=== PATIENT | female | born 1955 | race Caucasian/White ===

== ENCOUNTER 2016-07-14 10:11 | Emergency (ER) | payer BC ==
--- NOTE | 2016-07-14 11:08 | ED ---
General Adult HPI - General Chief complaint: Extremity Problem,Nontraumatic Stated complaint: hand knee pain Time Seen by Provider: 07/14/16 10:37 Source: patient, RN notes reviewed Mode of arrival: ambulatory Limitations: no limitations - History of Present Illness Initial comments: Patient is 60-year-old female who presents emergency room today with multiple complaints. She does admit that over the last several months she's been noticing that she's been having some pain to her hands bilaterally and her shoulders. She admits that she has some numbness tingling to the left fingertips. She admits to some neck pain. She states only symptoms off and on over the last several months. She does admit the pains are worse with movements. She uses related to arthritis. She states that she came here to emergency room if she had some increased pain to the left knee area. States she was worried about a blood clot. Patient also admits to a fungus to his left great toe. She states been using [id number] medications with no relief the symptoms. Patient denies any injury to the left knee. Denies any other complaints or associated symptoms. Patient denies any recent fever, chills , shortness of breath, chest pain, back pain, abdominal pain, nausea or vomiting , dysuria or hematuria, constipation or diarrhea, headaches or visual changes, or any other complaints. - Related Data Home Medications Medication Instructions Recorded Confirmed Albuterol Sulfate [Proair Hfa] 2 puff INHALATION RT-Q6H PRN 07/14/16 07/14/16 Beclomethasone Dipropionate [Qvar 1 puff INHALATION RT-BID PRN 07/14/16 07/14/16 80 mcg] Ibuprofen [Motrin] 400 mg PO Q6HR PRN 07/14/16 07/14/16 Lisinopril [Zestril] 10 mg PO DAILY 07/14/16 07/14/16 metFORMIN HCL [Glucophage] 500 mg PO BID 07/14/16 07/14/16 Previous Rx's Medication Instructions Recorded Insulin Glargine [Lantus] 10 unit SQ HS #2 vial 08/12/15 Ibuprofen [Motrin] 600 mg PO Q6HR PRN #40 day 07/14/16 Allergies Allergy/AdvReac Type Severity Reaction Status Date / Time No Known Allergies Allergy Verified 07/14/16 10:56 Review of Systems ROS Statement: Those systems with pertinent positive or pertinent negative responses have been documented in the HPI. ROS Other: All systems not noted in ROS Statement are negative. Past Medical History Past Medical History: Asthma, Diabetes Mellitus History of Any Multi-Drug Resistant Organisms: None Reported Past Surgical History: Tubal Ligation Additional Past Surgical History / Comment(s): wrist surgery Past Anesthesia/Blood Transfusion Reactions: No Reported Reaction Past Psychological History: No Psychological Hx Reported Smoking Status: Never smoker Past Alcohol Use History: None Reported Past Drug Use History: None Reported - Past Family History Father Family Medical History: Cancer Mother Family Medical History: Congestive Heart Failure (CHF), Hypertension General Exam - General Exam Comments Initial Comments: General: The patient is awake and alert, in no distress, and does not appear acutely ill. Neck: The neck is supple, there is no tenderness or JVD. Cardiovascular: There is a regular rate and rhythm. No murmur, rub or gallop is appreciated. Respiratory: Lungs are clear to auscultation, respirations are non-labored, breath sounds are equal. No wheezes, stridor, rales, or rhonchi. Musculoskeletal: Normal appearance of the upper extremities bilaterally. Shows full range of motion. Sensations intact with pulses bilaterally 2+. Pain reproduced with certain movements of the right wrist and with flexion and extension of the right hand. No specific bony tenderness. No tenderness to the shoulders bilaterally. Pulses equal bilaterally in both upper and lower extremities. Sensations are intact in both upper and lower extremities. Patient has normal appearance of left knee no obvious swelling or bruising. Shows good range of motion. Does have tenderness in the popliteal area. Neurological: A&O x 3. CN II-XII intact, There are no obvious motor or sensory deficits. Coordination appears grossly intact. Speech is normal. Skin: Skin is warm and dry and no rashes or lesions are noted. Psychiatric: Normal mood and affect. Limitations: no limitations Course Vital Signs 07/14/16 10:33 Temperature 97.8 F Pulse Rate 107 H Respiratory 16 Rate Blood Pressure 130/69 O2 Sat by Pulse 98 Oximetry Medical Decision Making - Medical Decision Making Patient reexamined at this time shows no signs of distress. Patient's ultrasound reviewed and shows evidence for a popliteal fossa cyst. No evidence for DVT. Patient advised follow-up with the orthopedics. Patient is advised follow-up the family doctor for further evaluation of her joint pain and fungal infection of the left toe. Advised that she'll need labs obtained before starting any medications for her fungal infection. Patient will be given a prescription for ibuprofen for her joint pain and pain in the left knee. Advised return for any other concerns. Disposition Clinical Impression: Bakers cyst, Fungal toenail infection, Arthralgia Disposition: HOME SELF-CARE Condition: Good Instructions: Bakers Cyst (ED) Additional Instructions: Please follow up with the family doctor for further evaluation and also orthopedics as discussed. Please use ibuprofen as prescribed and return to emergency room if any symptoms increase or worsen or for any other concerns. Prescriptions: Ibuprofen [Motrin] 600 mg PO Q6HR PRN #40 day PRN Reason: Pain Referrals: Lidia Felipe MD [Primary Care Provider] - 1-2 days Ashutosh Denton MD [STAFF PHYSICIAN] - 1-2 days Time of Disposition: 12:26
--- NOTE | 2016-07-14 12:19 | US ---
EXAMINATION TYPE: US venous doppler duplex LE LT DATE OF EXAM: 07/14/2016 12:04 PM COMPARISON: NONE CLINICAL HISTORY: Pain. Pain behind the left knee, no hx of blood clots, not on any blood thinners SIDE PERFORMED: left VESSELS IMAGED: External Iliac Vein (EIV) Common Femoral Vein Deep Femoral Vein Greater Saphenous Vein * Femoral Vein Popliteal Vein Small Saphenous Vein * Proximal Calf Veins (* superficial vessels) TECHNOLOGIST IMPRESSION: Left Leg: Appears negative for DVT Incidental finding- Septated fluid collection seen in posterior knee= 5.9 x 2.1 x 3.2 cm IMPRESSION: 1. This examination is negative for DVT within the left leg. 2. This examination is positive for a popliteal fossa cyst.
[2016-07-14 13:06] VITALS: BP 116/65; PULSE 95; RESP 18; TEMP 97.3
== END 2016-07-14 13:06 | disposition home or self-care (01) ==
LOC: EC 10:11
DX: M71.22 Synovial cyst of popliteal space [Baker], left knee (principal); B35.1 Tinea unguium; M25.50 Pain in unspecified joint; E11.9 Type 2 diabetes mellitus without complications; Z79.899 Other long term (current) drug therapy; Z79.4 Long term (current) use of insulin; Z79.84 Long term (current) use of oral hypoglycemic drugs
CPT/HCPCS: 99283

== ENCOUNTER 2016-08-06 16:06 | Emergency (ER) | payer BC ==
[2016-08-06 16:19] VITALS: BP 165/75; PULSE 105; RESP 18; TEMP 98.9
--- NOTE | 2016-08-06 16:50 | ED ---
General Adult HPI - General Chief complaint: Extremity Problem,Nontraumatic Stated complaint: Hands/Knees Swollen Time Seen by Provider: 08/06/16 16:25 Source: patient Mode of arrival: wheelchair Limitations: no limitations - History of Present Illness Initial comments: Patient is a 60-year-old female who presents to the ED with a chief complaint of joint pain and tingling on her bilateral fingers. Patient states that this has been present over the course of the past month. Patient states that she came to the emergency department initially for this complaint. She had a thorough evaluation that included Doppler of the bilateral lower extremities. This ruled out the presence of DVT and identified a left-sided Cross's cyst. The patient was diagnosed with polyarthralgia and went to her PCP's office for follow-up. Her PCP's office ordered an ESR, CRP, and GA. The patient was discharged home on a Medrol Dosepak as well as Naproxen twice a day when necessary. The patient states that she had a slight improvement of her symptoms while taking these medications. However, after these medications were exhausted, the patient's pain and symptoms return. The patient came to the ED today because she felt like her symptoms were worsening again. The patient describes the pain is achy in nature. The pain was located in the bilateral shoulders, bilateral hands, bilateral knees. Patient has numbness and tingling in digits 3 and 4 of bilateral hands. Patient suffers from diabetes that is insulin controlled. She denies any fevers or chills. She denies any chest pain or shortness of breath. - Related Data Home Medications Medication Instructions Recorded Confirmed Albuterol Sulfate [Proair Hfa] 2 puff INHALATION RT-Q6H PRN 07/14/16 08/06/16 Beclomethasone Dipropionate [Qvar 1 puff INHALATION RT-BID PRN 07/14/16 08/06/16 80 mcg] Lisinopril [Zestril] 10 mg PO DAILY 07/14/16 08/06/16 metFORMIN HCL [Glucophage] 500 mg PO BID 07/14/16 08/06/16 Acetaminophen Tab [Tylenol Tab] 650 mg PO Q6H PRN 08/06/16 08/06/16 Insulin Glargine [Lantus] 100 unit SQ HS 08/06/16 08/06/16 Naproxen 500 mg PO Q12HR PRN 08/06/16 08/06/16 Previous Rx's Medication Instructions Recorded Gabapentin [Neurontin] 100 mg PO TID 7 Days 08/06/16 predniSONE 20 mg PO DAILY 5 Days 08/06/16 Allergies Allergy/AdvReac Type Severity Reaction Status Date / Time No Known Allergies Allergy Verified 08/06/16 16:43 Review of Systems ROS Statement: Those systems with pertinent positive or pertinent negative responses have been documented in the HPI. ROS Other: All systems not noted in ROS Statement are negative. Constitutional: Denies: fever, chills, weakness, weight change, night sweats Eyes: Denies: eye pain, eye discharge, vision change ENT: Denies: ear pain, throat pain, dental pain Respiratory: Denies: cough, dyspnea, wheezes Cardiovascular: Denies: chest pain, palpitations, dyspnea on exertion Endocrine: Denies: fatigue, polyuria Gastrointestinal: Denies: abdominal pain, nausea, vomiting, diarrhea, constipation Genitourinary: Denies: urgency, dysuria, frequency, hematuria Musculoskeletal: Reports: arthralgia. Denies: back pain, joint swelling Skin: Denies: rash, lesions, change in color, change in hair/nails Neurological: Reports: numbness, paresthesias, other (numbness and paresthesias in digits 3 and 4 of the bilateral hands). Denies: headache, weakness, confusion Psychiatric: Reports: depression. Denies: anxiety, homicidal thoughts, suicidal thoughts Past Medical History Past Medical History: Asthma, Diabetes Mellitus History of Any Multi-Drug Resistant Organisms: None Reported Past Surgical History: Tubal Ligation Additional Past Surgical History / Comment(s): wrist surgery Past Anesthesia/Blood Transfusion Reactions: No Reported Reaction Past Psychological History: No Psychological Hx Reported Smoking Status: Never smoker Past Alcohol Use History: None Reported Past Drug Use History: None Reported - Past Family History Father Family Medical History: Cancer Mother Family Medical History: Congestive Heart Failure (CHF), Hypertension General Exam Limitations: no limitations General appearance: alert, in no apparent distress Head exam: Present: atraumatic, normocephalic Eye exam: Present: normal appearance, PERRL. Absent: scleral icterus, conjunctival injection Pupils: Present: normal accommodation ENT exam: Present: normal exam, normal oropharynx, mucous membranes dry Neck exam: Present: normal inspection. Absent: tenderness, meningismus, full ROM, lymphadenopathy, thyromegaly Respiratory exam: Present: normal lung sounds bilaterally. Absent: respiratory distress, wheezes, rales, rhonchi, stridor, chest wall tenderness Cardiovascular Exam: Present: regular rate, normal rhythm. Absent: bradycardia , tachycardia GI/Abdominal exam: Present: soft. Absent: distended, tenderness, guarding, rebound, rigid Extremities exam: Present: full ROM, normal capillary refill, joint swelling ( swelling of the second MCP joint on the bilateral hands). Absent: tenderness Back exam: Present: normal inspection, full ROM Neurological exam: Present: alert, oriented X3 Psychiatric exam: Present: normal affect, normal mood Skin exam: Present: warm, dry, intact Course Vital Signs 08/06/16 16:16 Temperature 98.9 F Pulse Rate 105 H Respiratory 18 Rate Blood Pressure 165/75 O2 Sat by Pulse 98 Oximetry Medical Decision Making - Medical Decision Making Patient is a 60-year-old female who presents to the ED with a chief complaint of joint pain. Patient states that the pain is present in the bilateral shoulders, bilateral knees, bilateral hands. Patient also notes numbness and tingling in digits 3 and 4 of the bilateral hands. Patient has followed up with her PCP, who ordered tests to investigate possible rheumatologic origin of her pain. Patient was treated with a Medrol Dosepak and Naproxen with relief of her pain. Unfortunately, the patient's pain returned. Spoke with physician from PCPs office and discussed patient's complaint today. Suspect the patient' s symptoms are secondary to arthritis. Neuropathy may be secondary to diabetes. Will discharge patient home on Prednisone 20 mg by mouth daily. Will also start patient on Neurontin 100 mg 3 times a day. Patient will make an appointment with her PCP's office on Tuesday for further evaluation and checkup. They will provide patient with a referral to Physical Medicine and Rehabilitation, if necessary. Have answered all the patient's questions to her satisfaction. We'll give her a dose of Toradol 30 mg IM while here in the ED. I have answered all of the questions posed by the patient's brother as well. The patient did state that she wasn't eating any food today. Encourage patient that she needed to eat. Counseled her that she appeared to be a little dehydrated. Counseled her to drink lots of fluids while at home. Counseled patient that she will need to adjust her insulin due to steroids. She states understanding and agrees to overall plan. Disposition Clinical Impression: Polyarthritis, Peripheral neuropathy Disposition: HOME SELF-CARE Condition: Good Instructions: Arthritis (ED), Diabetic Peripheral Neuropathy (ED) Additional Instructions: Please return to the ED should you have worsening symptoms or should you develop a fever or chills Prescriptions: Gabapentin [Neurontin] 100 mg PO TID 7 Days predniSONE 20 mg PO DAILY 5 Days Referrals: Lidia Felipe MD [Primary Care Provider] - 08/09/16 (Please call Dr. Felipe's office on Tuesday to schedule a follow up appointment. She can help to connect you with a Physical Medicine and Rehabilitation Physician) Time of Disposition: 17:22
[2016-08-06] MEDS ORDERED: KETOROLAC 30 MG/ML 1 ML VIAL IM STA (16:53)
== END 2016-08-06 17:30 | disposition home or self-care (01) ==
LOC: EC 16:06
DX: M13.0 Polyarthritis, unspecified (principal); E11.42 Type 2 diabetes mellitus with diabetic polyneuropathy; J45.909 Unspecified asthma, uncomplicated; Z79.4 Long term (current) use of insulin; Z79.899 Other long term (current) drug therapy
CPT/HCPCS: 99283; 96372; J1885

== ENCOUNTER 2017-01-08 15:30 | Emergency (ER) | payer BC ==
[2017-01-08 15:36] VITALS: BP 131/71; PULSE 117; RESP 18; TEMP 96.9
--- NOTE | 2017-01-08 15:41 | ED ---
Extremity Problem HPI - General Chief complaint: Extremity Problem,Nontraumatic Stated complaint: Bilateral shoulder pain Time Seen by Provider: 01/08/17 15:39 Source: patient, RN notes reviewed Mode of arrival: ambulatory Limitations: no limitations - History of Present Illness Initial comments: Patient is a pleasant 61-year-old female presenting to the emergency department with chief complaint of an increase in her chronic pain. Patient reports over the past 5-6 months she's had increasing discomfort in her bilateral shoulders bilateral hands, bilateral knees and left worse than right. Patient reports that she has been seen a couple of times in the emergency department for similar complaints. She has had a previous evaluation with ultrasound to rule out DVT of the legs. There was a Cross cyst posterior to the left knee. Patient reports that she also has undergone blood work through her primary care physician and has been evaluated by rheumatology. Diagnosis is thought to be degenerative joint disease, osteoarthritis, and diabetic neuropathy. Patient reports that she previously had been taking Naprosyn for discomfort but she has run out. Patient reports that her pain is normally "tolerable" but today complains of 10 out of 10 aching discomfort in the bilateral shoulders and left knee. Patient reports range of motion is reduced secondary to discomfort today. Patient denies any recent fall, trauma, or injury. She denies any increase in activity over the last few days that could explain for the exacerbation of her pain. Patient reports she has otherwise been well without fever, chills, cough, rhinorrhea, sore throat, chest pain, shortness of breath, abdominal pain, nausea, vomiting, diarrhea. Patient reports that in the past she has come to the emergency department and received an injection of the pain medication which is significantly reduced her discomfort and she is requesting a similar dose of pain medication today. - Related Data Home Medications Medication Instructions Recorded Confirmed Albuterol Sulfate [Proair Hfa] 2 puff INHALATION RT-Q6H PRN 07/14/16 08/06/16 Beclomethasone Dipropionate [Qvar 1 puff INHALATION RT-BID PRN 07/14/16 08/06/16 80 mcg] Lisinopril [Zestril] 10 mg PO DAILY 07/14/16 08/06/16 metFORMIN HCL [Glucophage] 500 mg PO BID 07/14/16 08/06/16 Acetaminophen Tab [Tylenol Tab] 650 mg PO Q6H PRN 08/06/16 08/06/16 Insulin Glargine [Lantus] 100 unit SQ HS 08/06/16 08/06/16 Naproxen 500 mg PO Q12HR PRN 08/06/16 08/06/16 Previous Rx's Medication Instructions Recorded Gabapentin [Neurontin] 100 mg PO TID 7 Days 08/06/16 predniSONE 20 mg PO DAILY 5 Days 08/06/16 Naproxen [Naprosyn] 375 mg PO Q12HR #30 tablet 01/08/17 Allergies Allergy/AdvReac Type Severity Reaction Status Date / Time No Known Allergies Allergy Verified 01/08/17 15:36 Review of Systems ROS Statement: Those systems with pertinent positive or pertinent negative responses have been documented in the HPI. ROS Other: All systems not noted in ROS Statement are negative. Past Medical History Past Medical History: Asthma, Diabetes Mellitus Additional Past Medical History / Comment(s): arthritis. History of Any Multi-Drug Resistant Organisms: None Reported Past Surgical History: Tubal Ligation Additional Past Surgical History / Comment(s): wrist surgery Past Anesthesia/Blood Transfusion Reactions: No Reported Reaction Past Psychological History: No Psychological Hx Reported Smoking Status: Never smoker Past Alcohol Use History: None Reported Past Drug Use History: None Reported - Past Family History Father Family Medical History: Cancer Mother Family Medical History: Congestive Heart Failure (CHF), Hypertension General Exam Limitations: no limitations General appearance: alert, in distress (Patient appears in mild distress secondary to discomfort.) Head exam: Present: atraumatic, normocephalic Eye exam: Present: normal appearance ENT exam: Present: mucous membranes moist Neck exam: Present: normal inspection Respiratory exam: Present: normal lung sounds bilaterally. Absent: respiratory distress, wheezes, rales, rhonchi, stridor Cardiovascular Exam: Present: regular rate, normal rhythm, normal heart sounds. Absent: systolic murmur, diastolic murmur Left Shoulder Exam: Present: normal inspection. Absent: full ROM (Range of motion is reduced grossly due to discomfort.), tenderness, swelling Upper Arm exam: Present: normal inspection. Absent: tenderness Elbow exam: Present: normal inspection, full ROM Forearm Wrist exam: Present: normal inspection, full ROM Hand Wrist exam: Present: swelling (Bilateral swelling to the second through third metacarpophalangeal joints to the bilateral hands.) Vascular: Present: normal capillary refill, radial pulse (2+ and symmetric bilaterally.). Absent: vascular compromise, Pallo Right General: Present: normal inspection Shoulder Exam: Present: normal inspection. Absent: full ROM (Range of motion grossly reduced secondary to pain.), tenderness, swelling, abrasion Upper Arm exam: Present: normal inspection. Absent: tenderness Elbow exam: Present: normal inspection, full ROM. Absent: tenderness Forearm Wrist exam: Present: normal inspection Hand Wrist exam: Present: swelling (Swelling to the bilateral second through fourth metacarpophalangeal joints). Absent: full ROM (Range of motion redo second or 2 swelling and pain.) Vascular: Present: normal capillary refill, radial pulse (2+ and symmetric bilaterally). Absent: vascular compromise, Pallo Left Hip exam: Present: full ROM Upper Leg exam: Present: normal inspection Knee exam: Present: full ROM (Range of motion is full but does elicit discomfort ), tenderness (Mild tenderness to palpation to the medial aspect of the joint), swelling (Mild swelling over her left anterior knee). Absent: ecchymosis, deformity Lower Leg exam: Present: normal inspection Ankle exam: Present: normal inspection Foot/Toe exam: Present: normal inspection Neurovascular tendon exam: Present: no vascular compromise. Absent: pulse deficit, abnormal cap refill, motor deficit, sensory deficit Neurological exam: Present: alert Psychiatric exam: Present: normal affect, normal mood Skin exam: Present: warm, dry, intact, normal color. Absent: rash Course Vital Signs 01/08/17 15:32 Temperature 96.9 F L Pulse Rate 117 H Respiratory 18 Rate Blood Pressure 131/71 O2 Sat by Pulse 97 Oximetry Medical Decision Making - Medical Decision Making Patient is a pleasant 61-year-old female with known history of osteoarthritis and degenerative joint disease who has had evaluation by rheumatology as well as primary care. She presents today with an increase in her chronic pain. Patient reports she is out of the Naprosyn which she had previously been prescribed. This will be refilled today. Patient reports that she does not want evaluation for chronic pain as this is already been evaluated for, but instead would like to have management of her chronic pain today. Patient reports that in the past she has been seen in her doctor's office as well as in the ER and has been given an injection which had significantly reduced her discomfort. Patient is requesting this medication again. In reviewing patient' s previous visits, she had been given Toradol 30 mg IM. This will be repeated today and then patient requests discharge. Disposition Clinical Impression: Polyarthralgia, Chronic pain of both shoulders, Chronic pain of left knee Disposition: HOME SELF-CARE Condition: Stable Instructions: Arthritis (ED) Additional Instructions: Please follow up with rheumatology as scheduled to discuss pain management and management of chronic arthralgias. Naprosyn may be used as needed for pain. Rest and ice affected areas. Prescriptions: Naproxen [Naprosyn] 375 mg PO Q12HR #30 tablet Referrals: Lidia Felipe MD [Primary Care Provider] - 1-2 days Time of Disposition: 16:05
[2017-01-08] MEDS ORDERED: KETOROLAC 30 MG/ML 1 ML VIAL IM STA (15:55)
== END 2017-01-08 16:23 | disposition home or self-care (01) ==
LOC: EC 15:30
DX: G89.29 Other chronic pain (principal); M25.511 Pain in right shoulder; M25.512 Pain in left shoulder; M25.562 Pain in left knee
CPT/HCPCS: 99283; 96372; J1885

== ENCOUNTER → 2017-04-20 | Outpatient (CLI) | payer BC ==
--- NOTE | 2017-04-20 13:54 | BD ---
EXAMINATION TYPE: MG DEXA axial skeleton. DATE OF EXAM: 04/20/2017 COMPARISON: NONE CLINICAL HISTORY: post menopausal Height: 5'3 Weight: 194 FRAX RISK QUESTIONS: Alcohol (3 or more units per day): no Family History (Parent hip fracture): no Glucocorticoids (More than 3mos): yes (Ex: prednisone, prednisolone, methylprednisolone, dexamethasone, and hydrocortisone). History of Fracture in Adulthood: no Secondary Osteoporosis: 1. Type 1 Diabetes: no 2. Hyperthyroidism: no 3. Menopause before 45: no 4. Malnutrition: no 5. Chronic liver disease: no Rheumatoid Arthritis: yes Current Tobacco Use: no RISK FACTORS HISTORY OF: Active: Postmenopausal woman: MEDICATIONS: Additional Medications: type 2 diabetes,lisinopril,citalpram,methotrexate Additional History: EXAM MEASUREMENTS: Bone mineral densitometry was performed using the [employer] System. Bone mineral density as measured about the Lumbar spine is: ----- L1-L4(G/cm2): 1.635 T Score Values are as follows: ----- L2: 2.8 ----- L3: 4.3 ----- L4: 5.0 ----- L1-L4:3.8 Bone mineral density about the R hip (g/cm2): 0.840 Bone mineral density about the L hip (g/cm2): 0.979 T Score values are as follows: -----R Neck: -1.4 -----L Neck: -0.4 -----R Total: 0.2 -----L Total: 1.0 IMPRESSION: Osteopenia (T Score between -2.5 and -1) as noted by T score values: Rt hip. Normal values with regar ds to the left hip There is slightly increased risk of fracture and the patient may be considered for treatment. Re-Screen 2-5 years. NOTE: T-SCORE=SD OF THE YOUNG ADULT MEAN.
--- NOTE | 2017-04-21 10:46 | MM ---
Reason for exam: screening (asymptomatic). Last mammogram was performed 3 years and 10 months ago. History: Patient is postmenopausal. Physical Findings: A clinical breast exam by your physician is recommended on an annual basis and results should be correlated with mammographic findings. MG Screening Mammo w CAD Bilateral CC and MLO view(s) were taken. Prior study comparison: June 20, 2013, bilateral digital screening mammo w/CAD. November 18, 2009, bilateral digital screening mammogram. There are scattered fibroglandular densities. Finding: There are typically benign vascular, round, linear calcifications in both breasts. There is a chronic nodularity in the left breast. There is no discrete abnormality. ASSESSMENT: Benign, BI-RAD 2 RECOMMENDATION: Routine screening mammogram of both breasts in 1 year.
== END | disposition home or self-care (01) ==
LOC: RADMAMWWP 12:45
PROVIDERS: ATTEND Family Medicine
DX: Z12.31 Encounter for screening mammogram for malignant neoplasm of breast (principal); Z78.0 Asymptomatic menopausal state; M85.851 Other specified disorders of bone density and structure, right thigh
CPT/HCPCS: 77080; G0202

== ENCOUNTER → 2018-04-26 | Outpatient (CLI) | payer BC ==
--- NOTE | 2018-04-27 14:23 | MM ---
Reason for exam: screening (asymptomatic). Last mammogram was performed 1 year ago. History: Patient is postmenopausal. MG Screening Mammo w CAD Bilateral CC and MLO view(s) were taken. Prior study comparison: April 20, 2017, bilateral MG screening mammo w CAD. June 20, 2013, bilateral digital screening mammo w/CAD. There are scattered fibroglandular densities. There are benign appearing bilateral calcifications. No suspicious abnormality. No significant new finding since most recent study. ASSESSMENT: Benign, BI-RAD 2 RECOMMENDATION: Routine screening mammogram of both breasts in 1 year.
== END | disposition home or self-care (01) ==
LOC: RADMAMWWP 07:53
PROVIDERS: ATTEND Family Medicine
DX: Z12.31 Encounter for screening mammogram for malignant neoplasm of breast (principal)
CPT/HCPCS: 77067

== ENCOUNTER 2019-07-29 22:47 | Inpatient (IN) | payer BC, OTHER ==
[2019-07-29] MEDS ORDERED: SODIUM CHLORIDE 0.9% 1,000 ML IV STA (23:06)
--- NOTE | 2019-07-29 23:26 | ED ---
Neuro HPI - General Chief Complaint: Neuro Symptoms/Deficit Stated Complaint: confusion Time Seen by Provider: 07/29/19 23:04 Source: patient, family Mode of arrival: wheelchair Limitations: no limitations - History of Present Illness Is the patient presenting with stroke symptoms?: Yes Last Known Well Date: 07/27/19 -: days(s) Initial Comments: Ruthie is a 63-year-old female presents the emergency department today for evaluation of left-sided weakness. Patient reports that she noticed some weakness in her left arm beginning on July 27. Patient does have a history of bilateral rotator cuff injuries and pain in the bilateral shoulders however is not usually week. Patient reports that since her arms become more week she's noticed a tremor in the arm and throughout the day today has noticed progressively worsening weakness in the left leg as well. Patient reports she is able to stand but has to hold onto something for support. Patient denies any headache, vision changes, trouble speech or swelling or facial droop. - Related Data Home Medications: Home Medications Medication Instructions Recorded Confirmed Albuterol Sulfate [Proair Hfa] 2 puff INHALATION RT-Q6H PRN 07/14/16 06/30/17 Beclomethasone Dipropionate [Qvar 1 puff INHALATION RT-BID PRN 07/14/16 06/30/17 80 mcg] Lisinopril [Zestril] 10 mg PO QAM 07/14/16 06/30/17 metFORMIN HCL [Glucophage] 500 mg PO BID 07/14/16 06/30/17 Insulin Glargine [Lantus] 100 unit SQ HS 08/06/16 06/30/17 Citalopram Hydrobromide 20 mg PO QAM 06/30/17 [Citalopram HBr] Folic Acid (Unknown Dose) 1 tab PO DAILY 06/30/17 Methotrexate/Pf [Rasuvo 15 mg/0.3 15 mg SQ SA 06/30/17 ml Autoinj] Allergies/Adverse Reactions: Allergies Allergy/AdvReac Type Severity Reaction Status Date / Time No Known Allergies Allergy Verified 07/29/19 23:03 Review of Systems ROS Statement: Those systems with pertinent positive or pertinent negative responses have been documented in the HPI. ROS Other: All systems not noted in ROS Statement are negative. General Exam - General Exam Comments Initial Comments: Physical Exam GENERAL: Patient is well-developed and well-nourished. Appears dehydrated HENT: Normocephalic, Atraumatic. EYES: PERRL, EOMI PULMONARY: Unlabored respirations. No audible rales rhonchi or wheezing was noted. CARDIOVASCULAR: Tachycardia, regular ABDOMEN: Soft and nontender with normal bowel sounds. SKIN: Skin is clear with no lesions or rashes and otherwise unremarkable. : Deferred NEUROLOGIC: Patient is alert and oriented x3. Moving all extremities spontaneously drift in left arm and leg Generalized weakness MUSCULOSKELETAL: Normal extremities with adequate strength and full range of motion. No lower extremity swelling or edema. No calf tenderness. PSYCHIATRIC: Normal psychiatric evaluation. Limitations: no limitations Stroke MDM - Lab Data Result diagrams: 07/29/19 23:20 07/29/19 23:20 Lab Results 07/29/19 07/29/19 07/29/19 Range/Units 23:20 23:20 23:20 WBC 9.9 (3.8-10.6) k/uL RBC 4.74 (3.80-5.40) m/uL Hgb 14.5 (11.4-16.0) gm/dL Hct 45.4 (34.0-46.0) % MCV 95.8 (80.0-100.0) fL MCH 30.5 (25.0-35.0) pg MCHC 31.9 (31.0-37.0) g/dL RDW 12.9 (11.5-15.5) % Plt Count 342 (150-450) k/uL Neutrophils % 81 % Lymphocytes % 15 % Monocytes % 3 % Eosinophils % 0 % Basophils % 0 % Neutrophils # 8.1 H (1.3-7.7) k/uL Lymphocytes # 1.5 (1.0-4.8) k/uL Monocytes # 0.3 (0-1.0) k/uL Eosinophils # 0.0 (0-0.7) k/uL Basophils # 0.0 (0-0.2) k/uL PT 9.4 (9.0-12.0) sec INR 0.9 (<1.2) APTT 19.9 L (22.0-30.0) sec VBG pH (7.31-7.41) VBG pCO2 (37-51) mmHg VBG HCO3 (24-28) mmol/L Sodium 131 L (137-145) mmol/L Potassium 5.4 H (3.5-5.1) mmol/L Chloride 99 (98-107) mmol/L Carbon Dioxide 12 L (22-30) mmol/L Anion Gap 20 mmol/L BUN 40 H (7-17) mg/dL Creatinine 0.91 (0.52-1.04) mg/dL Est GFR (CKD-EPI)AfAm 77 (>60 ml/min/1.73 sqM) Est GFR (CKD-EPI)NonAf 67 (>60 ml/min/1.73 sqM) Glucose 992 H* (74-99) mg/dL POC Glucose (mg/dL) (75-99) mg/dL POC Glu Quality Review Trainer ID Osmolality (280-301) mosm/kg Calcium 9.4 (8.4-10.2) mg/dL Total Bilirubin 0.7 (0.2-1.3) mg/dL AST 18 (14-36) U/L ALT 17 (4-34) U/L Alkaline Phosphatase 164 H (38-126) U/L Total Protein 6.4 (6.3-8.2) g/dL Albumin 3.4 L (3.5-5.0) g/dL Urine Color Urine Appearance (Clear) Urine pH (5.0-8.0) Ur Specific [place] (1.001-1.035) Urine Protein (Negative) Urine Glucose (UA) (Negative) Urine Ketones (Negative) Urine Blood (Negative) Urine Nitrite (Negative) Urine Bilirubin (Negative) Urine Urobilinogen (<2.0) mg/dL Ur Leukocyte Esterase (Negative) Acetone, Qual (Negative) 07/29/19 07/30/19 07/30/19 Range/Units 23:20 00:16 00:22 WBC (3.8-10.6) k/uL RBC (3.80-5.40) m/uL Hgb (11.4-16.0) gm/dL Hct (34.0-46.0) % MCV (80.0-100.0) fL MCH (25.0-35.0) pg MCHC (31.0-37.0) g/dL RDW (11.5-15.5) % Plt Count (150-450) k/uL Neutrophils % % Lymphocytes % % Monocytes % % Eosinophils % % Basophils % % Neutrophils # (1.3-7.7) k/uL Lymphocytes # (1.0-4.8) k/uL Monocytes # (0-1.0) k/uL Eosinophils # (0-0.7) k/uL Basophils # (0-0.2) k/uL PT (9.0-12.0) sec INR (<1.2) APTT (22.0-30.0) sec VBG pH (7.31-7.41) VBG pCO2 (37-51) mmHg VBG HCO3 (24-28) mmol/L Sodium (137-145) mmol/L Potassium (3.5-5.1) mmol/L Chloride (98-107) mmol/L Carbon Dioxide (22-30) mmol/L Anion Gap mmol/L BUN (7-17) mg/dL Creatinine (0.52-1.04) mg/dL Est GFR (CKD-EPI)AfAm (>60 ml/min/1.73 sqM) Est GFR (CKD-EPI)NonAf (>60 ml/min/1.73 sqM) Glucose (74-99) mg/dL POC Glucose (mg/dL) >600 H (75-99) mg/dL POC Glu Quality Review Trainer ID Marcia Hays Osmolality 353 H* (280-301) mosm/kg Calcium (8.4-10.2) mg/dL Total Bilirubin (0.2-1.3) mg/dL AST (14-36) U/L ALT (4-34) U/L Alkaline Phosphatase (38-126) U/L Total Protein (6.3-8.2) g/dL Albumin (3.5-5.0) g/dL Urine Color Yellow Urine Appearance Clear (Clear) Urine pH 6.0 (5.0-8.0) Ur Specific [place] 1.005 (1.001-1.035) Urine Protein Negative (Negative) Urine Glucose (UA) 3+ (Negative) Urine Ketones 2+ (Negative) Urine Blood Negative (Negative) Urine Nitrite Negative (Negative) Urine Bilirubin Negative (Negative) Urine Urobilinogen <2.0 (<2.0) mg/dL Ur Leukocyte Esterase Negative (Negative) Acetone, Qual Positive (Negative) 02/07/30/19 07/30/19 Range/Units 01:35 01:49 02:47 WBC (3.8-10.6) k/uL RBC (3.80-5.40) m/uL Hgb (11.4-16.0) gm/dL Hct (34.0-46.0) % MCV (80.0-100.0) fL MCH (25.0-35.0) pg MCHC (31.0-37.0) g/dL RDW (11.5-15.5) % Plt Count (150-450) k/uL Neutrophils % % Lymphocytes % % Monocytes % % Eosinophils % % Basophils % % Neutrophils # (1.3-7.7) k/uL Lymphocytes # (1.0-4.8) k/uL Monocytes # (0-1.0) k/uL Eosinophils # (0-0.7) k/uL Basophils # (0-0.2) k/uL PT (9.0-12.0) sec INR (<1.2) APTT (22.0-30.0) sec VBG pH 7.30 L (7.31-7.41) VBG pCO2 29 L (37-51) mmHg VBG HCO3 14 L (24-28) mmol/L Sodium (137-145) mmol/L Potassium (3.5-5.1) mmol/L Chloride (98-107) mmol/L Carbon Dioxide (22-30) mmol/L Anion Gap mmol/L BUN (7-17) mg/dL Creatinine (0.52-1.04) mg/dL Est GFR (CKD-EPI)AfAm (>60 ml/min/1.73 sqM) Est GFR (CKD-EPI)NonAf (>60 ml/min/1.73 sqM) Glucose (74-99) mg/dL POC Glucose (mg/dL) 581 H 435 H (75-99) mg/dL POC Glu Quality Review Trainer Marcia Be Emily Osmolality (280-301) mosm/kg Calcium (8.4-10.2) mg/dL Total Bilirubin (0.2-1.3) mg/dL AST (14-36) U/L ALT (4-34) U/L Alkaline Phosphatase (38-126) U/L Total Protein (6.3-8.2) g/dL Albumin (3.5-5.0) g/dL Urine Color Urine Appearance (Clear) Urine pH (5.0-8.0) Ur Specific [place] (1.001-1.035) Urine Protein (Negative) Urine Glucose (UA) (Negative) Urine Ketones (Negative) Urine Blood (Negative) Urine Nitrite (Negative) Urine Bilirubin (Negative) Urine Urobilinogen (<2.0) mg/dL Ur Leukocyte Esterase (Negative) Acetone, Qual (Negative) - NIH Stroke Scale 1a. Level of Consciousness: (0) alert 1b. LOC Questions: (0) answers correctly 1c. LOC Commands: (0) performs tasks correctly 2. Best Gaze: (0) normal 3. Visual: (0) no visual loss 4. Facial Palsy: (0) normal symmetrical movement 5a. Motor Arm Left: (1) drift 5b. Motor Arm Right: (0) no drift 6a. Motor Leg Left: (1) drift 6b. Motor Leg Right: (0) no drift 7. Limb Ataxia: (0) absent 8. Sensory: (0) normal 9. Best Language: (0) no aphasia 10. Dysarthria: (0) normal 11. Extinction/Inattention: (0) no abnormality - Thrombolytic Inclusion/Exclusion Thrombolytic Exclusion Criteria: Symptom Onset > 4.5 Hours Thrombolytic Contraindications: Glucose Above 400mg/dl - Medical Decision Making Patient was seen and evaluated, history is obtained from the patient and family at bedside 63-year-old female presenting with left-sided weakness, resident for greater than 48 hours no indication for code stroke is patient's on a candidate for TPA or intervention Labs and imaging were ordered EKG nonischemic Labs resulted with a glucose of greater than 900, bedside [id number] glucose confirms glucose greater than 600 Additional labs for DKA were ordered Patient confirmed that she had stopped taking her insulin about a week ago, she states she does have insulin at home she just does not want to take it Computed tomography scan of the head with no acute findings Results were discussed with patient, I suspect her generalized weakness and neurologic findings are secondary to hyperglycemia, will treat for likely DKA Patient's found to have elevated anion gap and low bicarb, venous blood gas was obtained confirmed the pH of 7.3, acetone is positive, patient is in DKA. Patient received DKA insulin. Insulin improving significantly after IV fluids and bolus. Patient will be admitted to the ICU for further management of DKA. Patient care was discussed with Dr. Dodd the crayon painter agrees with plan for admission to the ICU. - EKG Data -: EKG Interpreted by Me EKG shows normal: sinus rhythm Rate: normal EKG was obtained due to complaint of acute neuro deficits, EKG obtained at 2311, rate is 126 rhythm is sinus tachycardia with rightward axis, normal intervals, AK 146, QRS 76, QTC [address] elevations or depressions no evidence of acute ischemia or infarction 07/29/19 23:25 Past Medical History Past Medical History: Asthma, Diabetes Mellitus, Hypertension, Osteoarthritis (OA) Additional Past Medical History / Comment(s): arthritis. History of Any Multi-Drug Resistant Organisms: None Reported Past Surgical History: Tubal Ligation Additional Past Surgical History / Comment(s): wrist surgery Past Anesthesia/Blood Transfusion Reactions: No Reported Reaction Past Psychological History: No Psychological Hx Reported Smoking Status: Never smoker Past Alcohol Use History: None Reported Past Drug Use History: None Reported - Past Family History Father Family Medical History: Cancer Mother Family Medical History: Congestive Heart Failure (CHF), Hypertension Course Vital Signs 07/29/19 07/30/19 07/30/19 22:56 00:00 00:03 Temperature 97.9 F Pulse Rate 122 H 114 H 115 H Respiratory 22 22 20 Rate Blood Pressure 136/88 149/91 141/89 O2 Sat by Pulse 99 99 98 Oximetry 07/30/19 01:40 Temperature Pulse Rate 120 H Respiratory 20 Rate Blood Pressure 151/90 O2 Sat by Pulse 97 Oximetry Critical Care Time Critical Care Time: Yes Total Critical Care Time: 45 Critical Care Time: Critical care time was exclusive of separately billable procedures and treating other patients and teaching time. Critical care was necessary to treat or prevent imminent or life-threatening deterioration. Given the critical condition in which the patient arrived, the patient was immediately assessed by myself and the nurse, and cardiac monitoring initiated due to the potential for rapid decompensation of the patient's clinical condition. During the course of the patients stay, I spent a considerable amount of time at the bedside performing serial re-evaluations of the patient's hemodynamic and clinical status because of the recognized potential threat to life or limb in this condition. I then had a chance to review not only all of the available current laboratory and radiographic studies obtained today, but I also reviewed old records available to me at the time. Additionally, any ancillary information available including employment attorney records were reviewed. Sequential vital signs were obtained. Disposition Clinical Impression: DKA (diabetic ketoacidoses), Non compliance w medication regimen, Generalized weakness Disposition: ADMITTED IP TO THIS HOSP Condition: Serious Is patient prescribed a controlled substance at d/c from ED?: No
[2019-07-29 23:46] LABS: Basophils % (A) 0 %; Eosinophils % (A) 0 %; HCT 45.4 % (34.0-46.0); HGB 14.5 gm/dL (11.4-16.0); Lymphocytes # (A) 1.5 k/uL (1.0-4.8); Lymphocytes % (A) 15 %; MCH 30.5 pg (25.0-35.0); MCHC 31.9 g/dL (31.0-37.0); MCV 95.8 fL (80.0-100.0); Mean Platelet Volume 8.7; Monocytes # (A) 0.3 k/uL (0-1.0); Monocytes % (A) 3 %; Neutrophils # (A) 8.1 k/uL (1.3-7.7); Neutrophils % (A) 81 %; Platelet Count 342 k/uL (150-450); RBC 4.74 m/uL (3.80-5.40); RDW 12.9 % (11.5-15.5); WBC 9.9 k/uL (3.8-10.6)
[2019-07-29 23:53] LABS: Albumin 3.4 g/dL (3.5-5.0); Calcium 9.4 mg/dL (8.4-10.2); Potassium 5.4 mmol/L (3.5-5.1); Total Bilirubin 0.7 mg/dL (0.2-1.3); Total Protein 6.4 g/dL (6.3-8.2)
[2019-07-29 23:57] LABS: INR 0.9 (<1.2); Prothrombin Time 9.4 sec (9.0-12.0)
[2019-07-30 00:01] LABS: Partial Thromboplastin Time 19.9 sec (22.0-30.0)
--- NOTE | 2019-07-30 00:05 | CT ---
EXAMINATION TYPE: CT brain wo con DATE OF EXAM: 07/29/2019 COMPARISON: 01/24/2016 HISTORY: AMS CT DLP: 1083.40 mGycm Automated exposure control for dose reduction was used. Multiple axial sections were obtained of the brain without contrast. There is mild atrophy. There is no mass effect nor midline shift. There is no sign of intracranial he morrhage. Calvarium is intact. IMPRESSION: Mild atrophy. No acute intracranial abnormality. Minimal sphenoid sinusitis. No change.
[2019-07-30] MEDS ORDERED: SODIUM CHLORIDE 0.9% 1,000 ML IV SCH (00:15)
[2019-07-30] MEDS ORDERED: Magnesium Replacement Protocol 1 EACH MISC MISCELLANE PRN (00:15)
[2019-07-30] MEDS ORDERED: SODIUM CHLORIDE 0.9% 1,000 ML IV ONE (00:15)
[2019-07-30] MEDS ORDERED: INSULIN REGULAR BOLUS (FROM DRIP BAG) IV ONE (00:15)
[2019-07-30] MEDS ORDERED: Potassium Replacement Protocol 1 EACH MISC MISCELLANE PRN (00:15)
--- NOTE | 2019-07-30 00:15 | XR ---
EXAMINATION TYPE: XR chest 2V DATE OF EXAM: 07/29/2019 COMPARISON: 08/09/2015 HISTORY: Altered mental status. TECHNIQUE: FINDINGS: There is no heart failure nor confluent pneumonic infiltrate. Costophrenic angles are clear . Bony thorax is intact. There are are no hilar masses. IMPRESSION: No active cardiopulmonary disease. No change.
[2019-07-30 00:17] LABS: Glucose,Whole Blood >600 mg/dL (75-99)
[2019-07-30] MEDS: INSULIN REGULAR 100 UNIT in SODIUM CHLORIDE 0.9% 100 ML IV SCH ×2 (00:35→12:32)
[2019-07-30 00:50] LABS: Appearance,Urine Clear (Clear); Color,Urine Yellow; Glucose,Urine (UA) 3+ (Negative); Protein,Urine Negative (Negative); Specific Gravity,Urine 1.005 (1.001-1.035)
[2019-07-30 00:51] LABS: Bilirubin,Urine Negative (Negative); Blood,Urine Negative (Negative); Ketones,Urine 2+ (Negative); Urobilinogen,Urine <2.0 mg/dL (<2.0)
[2019-07-30 00:52] LABS: Leukocyte Esterase,Urine Negative (Negative); Nitrite,Urine Negative (Negative)
[2019-07-30 01:37] LABS: Glucose,Whole Blood 581 mg/dL (75-99)
[2019-07-30 01:56] LABS: VBG PH 7.3 (7.31-7.41)
[2019-07-30 02:48] LABS: Glucose,Whole Blood 435 mg/dL (75-99)
[2019-07-30] MEDS ORDERED: NALOXONE 0.4 MG/ML 1 ML VIAL IV PRN (03:07)
[2019-07-30] MEDS ORDERED: ALBUTEROL NEBULIZED 2.5 MG/3 ML INHALATION PRN (03:09)
[2019-07-30 03:43] LABS: Glucose,Whole Blood 360 mg/dL (75-99)
[2019-07-30 04:41] LABS: Glucose,Whole Blood 303 mg/dL (75-99)
[2019-07-30] MEDS ORDERED: MORPHINE SULFATE 4 MG/ML SYRINGE IVP PRN (04:43)
[2019-07-30] MEDS: D5-0.45% NACL WITH KCL 20MEQ/L 1,000 ML IV SCH ×2 (05:14→12:15)
[2019-07-30 05:31] LABS: African American GFR (CKD) >90 (>60 ml/min/1.73 sqM); Anion Gap 9 mmol/L; Blood Urea Nitrogen 33 mg/dL (7-17); Carbon Dioxide 14 mmol/L (22-30); Chloride 111 mmol/L (98-107); Glucose 300 mg/dL (74-99); Magnesium 2.2 mg/dL (1.6-2.3); Non-African American GFR(CKD) >90 (>60 ml/min/1.73 sqM); Phosphorus 3.1 mg/dL (2.5-4.5); Potassium 4.2 mmol/L (3.5-5.1); Sodium 134 mmol/L (137-145)
[2019-07-30 05:36] LABS: Glucose,Whole Blood 276 mg/dL (75-99)
[2019-07-30 06:37] LABS: Glucose,Whole Blood 164 mg/dL (75-99)
[2019-07-30 07:44] LABS: Glucose,Whole Blood 129 mg/dL (75-99)
[2019-07-30 08:32] LABS: Glucose,Whole Blood 122 mg/dL (75-99)
[2019-07-30 09:17] LABS: African American GFR (CKD) >90 (>60 ml/min/1.73 sqM); Anion Gap 5 mmol/L; Blood Urea Nitrogen 32 mg/dL (7-17); Carbon Dioxide 18 mmol/L (22-30); Chloride 113 mmol/L (98-107); Glucose 123 mg/dL (74-99); Magnesium 2.3 mg/dL (1.6-2.3); Non-African American GFR(CKD) >90 (>60 ml/min/1.73 sqM); Potassium 3.9 mmol/L (3.5-5.1); Sodium 136 mmol/L (137-145)
[2019-07-30 10:07] LABS: Glucose,Whole Blood 142 mg/dL (75-99)
[2019-07-30] MEDS: CITALOPRAM HYDROBROMIDE 20 MG TAB PO SCH (10:20)
[2019-07-30] MEDS: INSULIN DETEMIR (LEVEMIR) 100 UNIT/ML SYR SQ SCH (10:21)
[2019-07-30] MEDS: LISINOPRIL 10 MG TAB PO SCH (10:21)
--- NOTE | 2019-07-30 10:55 | P.CNPUL ---
<Alta Silva - Last Filed: 07/30/19 10:42> History of Present Illness Consult date: 07/30/19 Requesting physician: Naomy Castaneda Reason for consult: other (DKA, critical care management) Chief complaint: Weakness, fatigue History of present illness: This is a very pleasant 63-year-old female patient who follows with Dr. Lidia barros as her primary care provider. She has a history of diabetes mellitus, type II, hypertension, mild intermittent chronic bronchial asthma, osteoarthritis. She is a lifelong nonsmoker. She presented here to the emergency room yesterday after developing profound weakness tingling and numbness of her hands left-sided weakness and inability to get herself out of bed. She was also incontinent of urine. Computed tomography scan of the brain revealed no acute intracranial abnormalities. There is some issues with noncompliance and regarding her insulin. She stated she had stopped taking it approximately a week prior to her admission. She was found to have a blood glucose of 992. Osmolality 353. Potassium 5.4. Anion gap 20. Bicarb 12. Acetone positive. She was admitted to the intensive care unit for diabetic ketoacidosis. She is seen today in consultation. She is currently awake and alert in no acute distress. She is maintaining O2 saturations in the 90s on room air. Chest x-ray revealed no acute pulmonary process. She's been afebrile. Slightly tachycardic. Blood pressure stable. White count 9.9. Hemoglobin 14.5. Sodium 136. Potassium 3.9. Chloride 113. Bicarb 18. Anion gap 5. Current glucose 123. She has been treated via the DKA protocol. She remains on a D5.45 with 20 of KCl at 150 MLS per hour. Insulin drip at 1.19 units per hour. She is due for Levemir 20 units this morning and the drip will be discontinued. Review of Systems REVIEW OF SYSTEMS: CONSTITUTIONAL: Denies any recent significant weight loss or weight gain. EYES: Denies change in vision. EARS, NOSE, MOUTH, THROAT: Denies headaches, denies sore throat. CARDIOVASCULAR: Denies chest pain, palpitations or syncopal episodes. RESPIRATORY: Denies shortness of breath, cough, congestion or hemoptysis. GASTROINTESTINAL: Denies change in appetite, denies abdominal pain GENITOURINARY: Positive for urinary incontinence. MUSKULOSKELETAL: Denies pain, denies swelling. INTEGUMENTARY: Denies rash, denies eczema. NEUROLOGICAL: Positive for tingling and numbness of the left side. Denies recent memory loss, no recent seizure activity. PSYCHIATRIC: Denies anxiety, denies depression. HEMATOLOGIC/LYMPHATIC: Denies anemia, denies enlarged lymph nodes. Past Medical History Past Medical History: Asthma, Diabetes Mellitus, Hypertension, Osteoarthritis (OA) Additional Past Medical History / Comment(s): arthritis. History of Any Multi-Drug Resistant Organisms: None Reported Past Surgical History: Tubal Ligation Additional Past Surgical History / Comment(s): wrist surgery Past Anesthesia/Blood Transfusion Reactions: No Reported Reaction Past Psychological History: No Psychological Hx Reported Smoking Status: Never smoker Past Alcohol Use History: None Reported Past Drug Use History: None Reported - Past Family History Father Family Medical History: Cancer Mother Family Medical History: Congestive Heart Failure (CHF), Hypertension Medications and Allergies Home Medications Medication Instructions Recorded Confirmed Type Albuterol Sulfate [Proair Hfa] 2 puff INHALATION RT-Q6H PRN 07/14/16 06/30/17 History Beclomethasone Dipropionate [Qvar 1 puff INHALATION RT-BID PRN 07/14/16 06/30/17 History 80 mcg] Lisinopril [Zestril] 10 mg PO QAM 07/14/16 06/30/17 History metFORMIN HCL [Glucophage] 500 mg PO BID 07/14/16 06/30/17 History Insulin Glargine [Lantus] 100 unit SQ HS 08/06/16 06/30/17 History Citalopram Hydrobromide 20 mg PO QAM 06/30/17 History [Citalopram HBr] Folic Acid (Unknown Dose) 1 tab PO DAILY 06/30/17 History Methotrexate/Pf [Rasuvo 15 mg/0.3 15 mg SQ SA 06/30/17 History ml Autoinj] Allergies Allergy/AdvReac Type Severity Reaction Status Date / Time No Known Allergies Allergy Verified 07/29/19 23:03 Physical Exam Vitals: Vital Signs Temp Pulse Resp BP Pulse Ox 07/30/19 07:00 109 H 15 128/74 96 07/30/19 06:00 108 H 10 L 131/82 97 07/30/19 05:00 114 H 23 139/88 99 07/30/19 04:00 97.7 F 123 H 12 138/82 99 07/30/19 03:29 97.7 F 07/30/19 03:00 124 H 21 160/99 97 07/30/19 01:40 120 H 20 151/90 97 07/30/19 01:00 124 H 24 145/92 96 07/30/19 00:03 115 H 20 141/89 98 07/30/19 00:00 114 H 22 149/91 99 07/29/19 22:56 97.9 F 122 H 22 136/88 99 Intake and Output 07/29/19 07/30/19 07/30/19 22:59 06:59 14:59 Intake Total 450 371.930 Balance 450 371.930 Intake: IV 450 300 D5-0.45% NaCl with KCl 300 300 20Meq/l 1,000 ml @ 150 mls/hr IV .Q6H40M [facility] Rx# :[id number] Sodium Chloride 0.9% 1, 150 000 ml @ 150 mls/hr IV . Q6H40M [facility] Rx#:[id number] Intake, IV Titration 71.930 Amount Insulin Regular 100 unit 71.930 In Sodium Chloride 0.9% 100 ml @ 0.1 UNITS/KG/HR 9.163 mls/hr IV .Q11H2M [facility] Rx#:[id number] Other: # Voids 0 0 Weight 90.718 kg 90.1 kg GENERAL EXAM: Alert, pleasant 63-year-old female patient on room air, comfortable in no apparent distress. HEAD: Normocephalic. EYES: Normal reaction of pupils, equal size. NOSE: Clear with pink turbinates. THROAT: No erythema or exudates. NECK: No masses, no JVD. CHEST: No chest wall deformity. LUNGS: Equal air entry with no crackles, wheeze, rhonchi or dullness. CVS: S1 and S2 normal with no audible murmur, regular rhythm. ABDOMEN: No hepatosplenomegaly, normal bowel sounds, no guarding or rigidity. SPINE: No scoliosis or deformity SKIN: No rashes CENTRAL NERVOUS SYSTEM: No focal deficits, tone is normal in all 4 extremities. EXTREMITIES: There is no peripheral edema. No clubbing, no cyanosis. P eripheral pulses are intact. Results - Laboratory Findings CBC and BMP: 07/29/19 23:20 07/30/19 08:36 PT/INR, D-dimer PT 9.4 sec (9.0-12.0) 07/29/19 23:20 INR 0.9 (<1.2) 07/29/19 23:20 Abnormal lab findings: Abnormal Labs 07/29/19 07/29/19 07/29/19 23:20 23:20 23:20 Neutrophils # 8.1 H APTT 19.9 L VBG pH VBG pCO2 VBG HCO3 Sodium 131 L Potassium 5.4 H Chloride Carbon Dioxide 12 L BUN 40 H Glucose 992 H* POC Glucose (mg/dL) Osmolality Phosphorus Alkaline Phosphatase 164 H Albumin 3.4 L 07/29/19 07/30/19 07/30/19 23:20 00:16 01:35 Neutrophils # APTT VBG pH VBG pCO2 VBG HCO3 Sodium Potassium Chloride Carbon Dioxide BUN Glucose POC Glucose (mg/dL) >600 H 581 H Osmolality 353 H* Phosphorus Alkaline Phosphatase Albumin 07/30/19 07/30/19 07/30/19 01:49 02:47 03:39 Neutrophils # APTT VBG pH 7.30 L VBG pCO2 29 L VBG HCO3 14 L Sodium Potassium Chloride Carbon Dioxide BUN Glucose POC Glucose (mg/dL) 435 H 360 H Osmolality Phosphorus Alkaline Phosphatase Albumin 07/30/19 07/30/19 07/30/19 04:39 04:44 05:34 Neutrophils # APTT VBG pH VBG pCO2 VBG HCO3 Sodium 134 L Potassium Chloride 111 H Carbon Dioxide 14 L BUN 33 H Glucose 300 H POC Glucose (mg/dL) 303 H 276 H Osmolality Phosphorus Alkaline Phosphatase Albumin 07/30/19 07/30/19 07/30/19 06:36 07:43 08:31 Neutrophils # APTT VBG pH VBG pCO2 VBG HCO3 Sodium Potassium Chloride Carbon Dioxide BUN Glucose POC Glucose (mg/dL) 164 H 129 H 122 H Osmolality Phosphorus Alkaline Phosphatase Albumin 07/30/19 07/30/19 07/30/19 08:36 08:36 09:46 Neutrophils # APTT VBG pH VBG pCO2 VBG HCO3 Sodium 136 L Potassium Chloride 113 H Carbon Dioxide 18 L BUN 32 H Glucose 123 H POC Glucose (mg/dL) 142 H Osmolality Phosphorus 2.4 L Alkaline Phosphatase Albumin - Diagnostic Findings Chest x-ray: image reviewed (No active pulmonary disease) Assessment and Plan Assessment: 1 Acute diabetic ketoacidosis in a patient with a known history of type 2 diabetes mellitus and insulin noncompliance for approximately 1 week prior to admission. 2 Anion gap metabolic acidosis secondary to above, recovered 3 Hyperkalemia secondary to above, recovered 4 Hypertension 5 Mild intermittent chronic bronchial asthma, inactive. 6 Lifelong nonsmoker. Plan: The patient was seen and evaluated by Dr. Garvin. Chest x-ray and labs reviewed. Her gap is closed. Her glucose levels have improved. She'll receive Levemir 20 units this a.m. We will discontinue the insulin drip. Continue per DKA protocol. Transfer out of the intensive care unit. Social work is involved regarding her history of medication noncompliance and decision-making processes. We'll continue to follow. I, the cosigning physician, performed a history & physical examination of the patient. Lungs sounds are clear. Maintaining good O2 saturations in the 90s on room air. I discussed the assessment and plan of care with my nurse practitioner, Alta Silva. I attest to the above consultation as dictated by her. Time with Patient: Greater than 30 <Bret Garvin - Last Filed: 07/30/19 11:43> Physical Exam Vitals: Vital Signs Temp Pulse Resp BP Pulse Ox 07/30/19 07:00 109 H 15 128/74 96 07/30/19 06:00 108 H 10 L 131/82 97 07/30/19 05:00 114 H 23 139/88 99 07/30/19 04:00 97.7 F 123 H 12 138/82 99 07/30/19 03:29 97.7 F 07/30/19 03:00 124 H 21 160/99 97 07/30/19 01:40 120 H 20 151/90 97 07/30/19 01:00 124 H 24 145/92 96 07/30/19 00:03 115 H 20 141/89 98 07/30/19 00:00 114 H 22 149/91 99 07/29/19 22:56 97.9 F 122 H 22 136/88 99 Intake and Output 07/29/19 07/30/19 07/30/19 22:59 06:59 14:59 Intake Total 450 371.930 Balance 450 371.930 Intake: IV 450 300 D5-0.45% NaCl with KCl 300 300 20Meq/l 1,000 ml @ 150 mls/hr IV .Q6H40M [facility] Rx# :[id number] Sodium Chloride 0.9% 1, 150 000 ml @ 150 mls/hr IV . Q6H40M [facility], [facility] Rx#:[id number] Intake, IV Titration 71.930 Amount Insulin Regular 100 unit 71.930 In Sodium Chloride 0.9% 100 ml @ 0.1 UNITS/KG/HR 9.163 mls/hr IV .Q11H2M [facility] Rx#:[id number] Other: # Voids 0 0 Weight 90.718 kg 90.1 kg Results - Laboratory Findings CBC and BMP: 07/29/19 23:20 07/30/19 08:36 PT/INR, D-dimer PT 9.4 sec (9.0-12.0) 07/29/19 23:20 INR 0.9 (<1.2) 07/29/19 23:20 Abnormal lab findings: Abnormal Labs 07/29/19 07/29/19 07/29/19 23:20 23:20 23:20 Neutrophils # 8.1 H APTT 19.9 L VBG pH VBG pCO2 VBG HCO3 Sodium 131 L Potassium 5.4 H Chloride Carbon Dioxide 12 L BUN 40 H Glucose 992 H* POC Glucose (mg/dL) Osmolality Phosphorus Alkaline Phosphatase 164 H Albumin 3.4 L 07/29/19 07/30/19 07/30/19 23:20 00:16 01:35 Neutrophils # APTT VBG pH VBG pCO2 VBG HCO3 Sodium Potassium Chloride Carbon Dioxide BUN Glucose POC Glucose (mg/dL) >600 H 581 H Osmolality 353 H* Phosphorus Alkaline Phosphatase Albumin 07/30/19 07/30/19 07/30/19 01:49 02:47 03:39 Neutrophils # APTT VBG pH 7.30 L VBG pCO2 29 L VBG HCO3 14 L Sodium Potassium Chloride Carbon Dioxide BUN Glucose POC Glucose (mg/dL) 435 H 360 H Osmolality Phosphorus Alkaline Phosphatase Albumin 07/30/19 07/30/19 07/30/19 04:39 04:44 05:34 Neutrophils # APTT VBG pH VBG pCO2 VBG HCO3 Sodium 134 L Potassium Chloride 111 H Carbon Dioxide 14 L BUN 33 H Glucose 300 H POC Glucose (mg/dL) 303 H 276 H Osmolality Phosphorus Alkaline Phosphatase Albumin 07/30/19 07/30/19 07/30/19 06:36 07:43 08:31 Neutrophils # APTT VBG pH VBG pCO2 VBG HCO3 Sodium Potassium Chloride Carbon Dioxide BUN Glucose POC Glucose (mg/dL) 164 H 129 H 122 H Osmolality Phosphorus Alkaline Phosphatase Albumin 07/30/19 07/30/19 07/30/19 08:36 08:36 09:46 Neutrophils # APTT VBG pH VBG pCO2 VBG HCO3 Sodium 136 L Potassium Chloride 113 H Carbon Dioxide 18 L BUN 32 H Glucose 123 H POC Glucose (mg/dL) 142 H Osmolality Phosphorus 2.4 L Alkaline Phosphatase Albumin Assessment and Plan Assessment: The patient is recovering from an acute DKA. She is back on Levemir 20 units along with a sliding scale coverage. Altered mentation. The electrolytes have improved.
[2019-07-30 11:46] LABS: Glucose,Whole Blood 201 mg/dL (75-99)
[2019-07-30] MEDS: INSULIN ASPART (NovoLOG) 100 UNIT/ML VIAL SQ SCH ×5 (12:15→21:50)
[2019-07-30 12:58] LABS: Hemoglobin A1C 15.9 % (4.0-6.0)
[2019-07-30] MEDS ORDERED: ACETAMINOPHEN TAB 500 MG TAB PO PRN (14:32)
[2019-07-30] MEDS ORDERED: ALPRAZolam 0.25 MG TAB PO PRN (14:32)
[2019-07-30] MEDS: HEPARIN SODIUM,PORCINE 5,000 UNIT/ML 1 ML VIAL SQ SCH ×2 (15:19→20:13)
[2019-07-30] MEDS: ASPIRIN 81 MG PO SCH (15:19)
[2019-07-30] MEDS: FOLIC ACID 1 MG TAB PO SCH (15:19)
--- NOTE | 2019-07-30 16:22 | US ---
EXAMINATION TYPE: US carotid duplex BILAT DATE OF EXAM: 07/30/2019 COMPARISON: NONE CLINICAL HISTORY: weakness. Weakness EXAM MEASUREMENTS: RIGHT: Peak Systolic Velocity (PSV) cm/sec ----- Right CCA: 71.4 ----- Right ICA: 88.9 ----- Right ECA: 67.1 ICA/CCA ratio: 1.2 RIGHT: End Diastole cm/sec ----- Right CCA: 11.3 ----- Right ICA: 19.7 ----- Right ECA: 0.0 LEFT: Peak Systolic Velocity (PSV) cm/sec ----- Left CCA: 100.4 ----- Left ICA: 302.3 ----- Left ECA: 81.2 ICA/CCA ratio: 3.0 LEFT: End Diastole cm/sec ----- Left CCA: 11.8 ----- Left ICA: 46.2 ----- Left ECA: 0.0 VERTEBRALS (direction of flow): Right Vertebral: Antegrade Left Vertebral: Antegrade Rhythm: Normal Hemodynamic stenosis left ICA IMPRESSION: Suspect greater than 70% stenosis left ICA. Criteria for Assigning % of Stenosis / Diameter reduction (Estimation based on the indirect measurements of the internal carotid artery velocities (ICA PSV). 1. Normal (no stenosis)=ICA PSV < 125 cm/s: ratio < 2.0: ICA EDV<40 cm/s. 2. Less than 50% stenosis=ICA PSV < 125 cm/s: ratio < 2.0: ICA EDV<40 cm/s. 3. 50 to 69% stenosis=ICA PSV of 125 to 230 cm/s: ration 2.0 ? 4.0: ICA EDV 40-100 cm/s. 4. Greater than 70% stenosis to near occlusion= ICA PSV > 230 cm/s: ratio > 4.0: ICA EDV > 100 cm/s. 5. Near occlusion= ICA PSV velocities may be low or undetectable: variable ratio and ICA EDV. 6. Total occlusion=unable to detect flow.
--- NOTE | 2019-07-30 16:32 | HP ---
HISTORY AND PHYSICAL DATE OF SERVICE: 07/30/2019 CHIEF COMPLAINTS: Diabetic ketoacidosis as well as weakness. HISTORY OF PRESENT ILLNESS: This 63-year-old woman with a past medical history of multiple medical problems including history of mild intermittent asthma, diabetes mellitus, hypertension, DJD, history of tubal ligation being followed by Dr. Lidia Felipe in the outpatient setting was complaining of generalized weakness. The patient also noted left-sided weakness in the left arm beginning on Miguel because the patient also has some history of degenerative joint disease. Because of increasing weakness, patient came to [facility], admitted for further evaluation and treatment. On admission, the patient was found to have a blood sugar of 992 with features of diabetic ketosis. The CO2 was 12. Patient started insulin drip. Patient is being closely monitored at this time. Acetone was also positive. There is no history of fever, rigors. No history of headache, loss of consciousness, seizures at this time. PAST MEDICAL HISTORY: History of asthma, diabetes, hypertension, DJD. HOME MEDICATIONS: 1. Plaquenil 200 mg p.o. daily. 2. Prednisone taper. 3. Glucophage 1000 mg p.o. b.i.d. 4. Aleve 220 mg p.o. 5. Zestril 10 mg p.o. q.h.s. 6. Lantus 25 units subcu q.h.s. 7. Folic acid 1 mg daily. 8. Celexa 20 mg daily. 9. Lipitor 10 mg daily. 10.ProAir HFA 1 puff q.6 p.r.n. ALLERGIES: None. FAMILY HISTORY: History of cancer in the family. SOCIAL HISTORY: No history of smoking. No history of alcohol. REVIEW OF SYSTEMS: ENT As mentioned earlier. CARDIOVASCULAR No angina or palpitations. RESPIRATORY No cough, no hemoptysis. GI No nausea, vomiting, or diarrhea. No dysuria. NERVOUS As mentioned earlier. ALLERGY/IMMUNOLOGY No asthma or hayfever. MUSCULOSKELETAL As mentioned earlier. HEMATOLOGY/ONCOLOGY Negative. ENDOCRINE As mentioned earlier. SKIN Negative. CONSTITUTIONAL As mentioned earlier. PSYCHIATRY As mentioned earlier. PHYSICAL EXAM: Patient is alert, oriented x3. Pulse is 94, blood pressure 130/70, respiration 18, temperature 97.7, pulse ox 98% on room air. HEENT: Conjunctivae normal. Oral mucosa moist. NECK: No jugular venous distention. No lymph node enlargement. CARDIOVASCULAR: S1, S2. RESPIRATORY: Diminished breath sounds at the bases. A few scattered rhonchi and crackles. Expiratory wheezing also present. ABDOMEN: Soft, nontender. LEGS: No edema, no swelling. NERVOUS SYSTEM: Higher functions mentioned earlier. Minimal weakness on the left side of the body. Otherwise, the reflexes are diminished. Gait not tested. LYMPHATICS: No lymph node in neck or axilla. SKIN: No rash. JOINTS: No active deforming arthropathy. LABS: At this time show WBC 9.2, hemoglobin 14.5, and APTT is 19.9. ABGs show a pH of 7.3, sodium 130, potassium 5.4, CO2 is 12. Accu-Cheks are 992, osmolality 353, alkaline phosphatase 160, albumin 3.4. ASSESSMENT: 1. Acute diabetic ketoacidosis with diabetes type 2, uncontrolled. 2. Weakness of the left side, rule out transient ischemic attack or stroke. 3. Hyponatremia. 4. Hyperkalemia. 5. Acidosis, metabolic secondary to diabetic ketoacidosis. 6. Increased osmolality. 7. History of intermittent asthma. 8. Diabetes mellitus type 2. 9. Hypertension. 10.History of degenerative joint disease. 11.History of tubal ligation. 12.History of wrist surgery. 13.Obesity with body mass of 35.2. 14.FULL CODE. RECOMMENDATIONS AND DISCUSSION: In this 63-year-old gentleman who presented with multiple complex medical issues, we will monitor the patient closely, continue the current medications, continue symptomatic treatment. The patient is receiving IV insulin drip at this time. I recommend to resume the home dose of Lantus, Accu-Cheks a.c. and at bedtime. We will also recommend full neurology workup including 2D echo, carotid Doppler, and a neurology consultation. ICU management per Dr. Garvin. Resume the home medications. DVT prophylaxis, antiplatelet agents. Guarded prognosis because of multiple complex medical issues. Further recommendations to follow. MMODL / IJN: [id number] /
[2019-07-30 16:47] LABS: Glucose,Whole Blood 320 mg/dL (75-99)
[2019-07-30] MEDS: metFORMIN 500 MG TAB PO SCH (20:13)
[2019-07-30] MEDS: ATORVASTATIN 10 MG TAB PO SCH (20:13)
[2019-07-30 20:36] LABS: Glucose,Whole Blood >600 mg/dL (75-99)
[2019-07-30 20:58] LABS: Glucose,Whole Blood 533 mg/dL (75-99)
[2019-07-30] MEDS ORDERED: INSULIN REGULAR BOLUS (FROM DRIP BAG) IV PRN (21:06)
[2019-07-30] MEDS ORDERED: INSULIN REGULAR 100 UNIT in SODIUM CHLORIDE 0.9% 100 ML IV SCH (21:15)
[2019-07-30 21:27] LABS: African American GFR (CKD) >90 (>60 ml/min/1.73 sqM); Anion Gap 8 mmol/L; Blood Urea Nitrogen 26 mg/dL (7-17); Carbon Dioxide 18 mmol/L (22-30); Chloride 103 mmol/L (98-107); Magnesium 2.1 mg/dL (1.6-2.3); Non-African American GFR(CKD) 90 (>60 ml/min/1.73 sqM); Phosphorus 2.8 mg/dL (2.5-4.5); Potassium 4.3 mmol/L (3.5-5.1); Sodium 129 mmol/L (137-145)
[2019-07-30 21:47] LABS: Glucose,Whole Blood >600 mg/dL (75-99)
[2019-07-30 22:35] LABS: Glucose 590 mg/dL (74-99)
[2019-07-30 22:41] LABS: Glucose,Whole Blood 492 mg/dL (75-99)
[2019-07-30 23:09] LABS: Glucose,Whole Blood 389 mg/dL (75-99)
[2019-07-31 00:03] LABS: Glucose,Whole Blood 292 mg/dL (75-99)
[2019-07-31] MEDS: HYDROcodone/APAP 5-325MG 1 EACH TAB PO PRN ×3 (00:07→21:40)
[2019-07-31 00:59] LABS: Glucose,Whole Blood 187 mg/dL (75-99)
[2019-07-31 02:07] LABS: Glucose,Whole Blood 122 mg/dL (75-99)
[2019-07-31 03:06] LABS: Glucose,Whole Blood 156 mg/dL (75-99)
[2019-07-31 04:03] LABS: Glucose,Whole Blood 182 mg/dL (75-99)
[2019-07-31 05:05] LABS: Glucose,Whole Blood 178 mg/dL (75-99)
[2019-07-31 05:30] LABS: Basophils % (A) 0 %; Eosinophils # (A) 0.1 k/uL (0-0.7); Eosinophils % (A) 1 %; HCT 34.5 % (34.0-46.0); Lymphocytes # (A) 1.4 k/uL (1.0-4.8); Lymphocytes % (A) 18 %; MCH 30.5 pg (25.0-35.0); MCHC 33.3 g/dL (31.0-37.0); MCV 91.5 fL (80.0-100.0); Mean Platelet Volume 7.9; Monocytes # (A) 0.2 k/uL (0-1.0); Monocytes % (A) 3 %; Neutrophils % (A) 77 %; Platelet Count 201 k/uL (150-450); RBC 3.78 m/uL (3.80-5.40); RDW 13.1 % (11.5-15.5); WBC 7.8 k/uL (3.8-10.6)
[2019-07-31 05:41] LABS: HGB 11.5 gm/dL (11.4-16.0)
[2019-07-31 06:12] LABS: African American GFR (CKD) >90 (>60 ml/min/1.73 sqM); Anion Gap 7 mmol/L; Blood Urea Nitrogen 30 mg/dL (7-17); Calcium 8.3 mg/dL (8.4-10.2); Carbon Dioxide 18 mmol/L (22-30); Chloride 108 mmol/L (98-107); Glucose 174 mg/dL (74-99); Non-African American GFR(CKD) >90 (>60 ml/min/1.73 sqM); Potassium 3.6 mmol/L (3.5-5.1); Sodium 133 mmol/L (137-145)
[2019-07-31] MEDS: INSULIN ASPART (NovoLOG) 100 UNIT/ML VIAL SQ SCH ×8 (06:30→21:02)
[2019-07-31 06:50] LABS: Glucose,Whole Blood 138 mg/dL (75-99)
[2019-07-31 07:59] LABS: Glucose,Whole Blood 239 mg/dL (75-99)
[2019-07-31] MEDS: HYDROXYCHLOROQUINE SULFATE 200 MG TAB PO SCH (08:15)
[2019-07-31] MEDS: HEPARIN SODIUM,PORCINE 5,000 UNIT/ML 1 ML VIAL SQ SCH ×2 (08:15→21:02)
[2019-07-31] MEDS: LISINOPRIL 10 MG TAB PO SCH (08:15)
[2019-07-31] MEDS: NAPROXEN 250 MG TAB PO SCH (08:15)
[2019-07-31] MEDS: ASPIRIN 81 MG PO SCH (08:17)
[2019-07-31] MEDS: predniSONE 5 MG TAB PO SCH (08:17)
[2019-07-31] MEDS: FOLIC ACID 1 MG TAB PO SCH (08:17)
[2019-07-31] MEDS: CITALOPRAM HYDROBROMIDE 20 MG TAB PO SCH (08:17)
[2019-07-31 09:17] LABS: Glucose,Whole Blood 258 mg/dL (75-99)
[2019-07-31] MEDS: INSULIN DETEMIR (LEVEMIR) 100 UNIT/ML SYR SQ SCH ×2 (09:43→17:48)
[2019-07-31] MEDS ORDERED: INSULIN DETEMIR (LEVEMIR) 100 UNIT/ML SYR SQ SCH (09:45)
[2019-07-31 09:51] VITALS: BMI 35.2
--- NOTE | 2019-07-31 09:54 | P.PN ---
Subjective Progress Note Date: 07/31/19 Principal diagnosis: acute DKA On 07/31/2019 patient seen in follow-up in intensive care unit, yesterday her insulin infusion was discontinued and patient was started on nasal insulin in the form of Levemir at 20 units, in addition to sliding scale and mealtime insulin of 2 units of Humalog before each meal. However in the evening her blood sugars were in the 500s and patient was restarted on insulin infusion. This morning she remains on insulin infusion at 7 units per hour, and her most recent blood sugar this morning at 9:00 was 258 patient is tolerating oral diet, she is currently on consistent carb regular diet no nausea, no vomiting. This morning his blood work has been reviewed, showing normal white count at 7.8, sodium is 133, potassium 3.6, chloride is 108, CO2 is 18, anion gap has closed and it is at 7 this morning, B1 is 30 creatinine 0.61. No fever or chills, room air pulse ox is 100% and the patient denies any shortness of breath, no cough or congestion. Objective - Vital Signs Vital signs: Vital Signs Temp 97.7 F 07/31/19 08:12 Pulse 103 H 07/31/19 08:12 Resp 12 07/31/19 08:12 BP 96/52 07/31/19 08:12 Pulse Ox 100 07/31/19 08:12 Intake & Output 07/30/19 07/31/19 07/31/19 18:59 06:59 18:59 Intake Total 923.677 107.049 0 Output Total 350 Balance 573.677 107.049 0 Intake: IV 850 50 D5-0.45% NaCl with KCl 850 50 20Meq/l 1,000 ml @ 150 mls/hr IV .Q6H40M [facility] Rx# :[id number] Intake, IV Titration 73.677 57.049 0 Amount Insulin Regular 100 unit 73.677 In Sodium Chloride 0.9% 100 ml @ 0.1 UNITS/KG/HR 9.163 mls/hr IV .Q11H2M [facility] Rx#:[id number] Insulin Regular 100 unit 57.049 0 In Sodium Chloride 0.9% 100 ml @ Per Protocol IV .Q0M [facility] Rx#:[id number] Output: Urine 350 Other: Voiding Method Bedside Commode # Voids 0 2 # Bowel Movements 1 - Exam GENERAL EXAM: Alert, pleasant, 63-year-old on room air comfortable in no apparent distress. HEAD: Normocephalic/atraumatic. EYES: Normal reaction of pupils, equal size. Conjunctiva pink, sclera white. NOSE: Clear with pink turbinates. THROAT: No erythema or exudates. NECK: No masses, no JVD, no thyroid enlargement, no adenopathy. CHEST: No chest wall deformity. Symmetrical expansion. LUNGS: Equal air entry with no crackles, wheeze, rhonchi or dullness. CVS: Regular rate and rhythm, normal S1 and S2, no gallops, no murmurs, no rubs ABDOMEN: Soft, nontender. No hepatosplenomegaly, normal bowel sounds, no guarding or rigidity. EXTREMITIES: No clubbing, no edema, no cyanosis, 2+ pulses and upper and lower extremities. MUSCULOSKELETAL: Muscle strength and tone normal.patient has right shoulder stiffness and limitation of range of motion, which is chronic however this morning patient had a incident where a staff member was preventing her from falling and had grabbed patient under the right shoulder, and there is some increased stiffness and pain involving the right shoulder SPINE: No scoliosis or deformity SKIN: No rashes CENTRAL NERVOUS SYSTEM: Alert and oriented -3. No focal deficits, tone is normal in all 4 extremities. PSYCHIATRIC: Alert and oriented -3. Appropriate affect. Intact judgment and insight. - Labs CBC & Chem 7: 07/31/19 05:12 07/31/19 05:12 Labs: Abnormal Lab Results - Last 24 Hours (Table) 07/30/19 07/30/19 07/30/19 Range/Units 04:44 09:46 11:44 RBC (3.80-5.40) m/uL Sodium (137-145) mmol/L Chloride (98-107) mmol/L Carbon Dioxide (22-30) mmol/L BUN (7-17) mg/dL Glucose (74-99) mg/dL POC Glucose (mg/dL) 142 H 201 H (75-99) mg/dL Hemoglobin A1c 15.9 H (4.0-6.0) % Calcium (8.4-10.2) mg/dL 07/30/19 07/30/19 07/30/19 Range/Units 16:46 20:21 20:34 RBC (3.80-5.40) m/uL Sodium 129 L (137-145) mmol/L Chloride (98-107) mmol/L Carbon Dioxide 18 L (22-30) mmol/L BUN 26 H (7-17) mg/dL Glucose 590 H* (74-99) mg/dL POC Glucose (mg/dL) 320 H >600 H (75-99) mg/dL Hemoglobin A1c (4.0-6.0) % Calcium 8.0 L (8.4-10.2) mg/dL 07/30/19 07/30/19 07/30/19 Range/Units 20:57 21:46 22:40 RBC (3.80-5.40) m/uL Sodium (137-145) mmol/L Chloride (98-107) mmol/L Carbon Dioxide (22-30) mmol/L BUN (7-17) mg/dL Glucose (74-99) mg/dL POC Glucose (mg/dL) 533 H >600 H 492 H (75-99) mg/dL Hemoglobin A1c (4.0-6.0) % Calcium (8.4-10.2) mg/dL 07/30/19 07/31/19 07/31/19 Range/Units 23:08 00:02 00:58 RBC (3.80-5.40) m/uL Sodium (137-145) mmol/L Chloride (98-107) mmol/L Carbon Dioxide (22-30) mmol/L BUN (7-17) mg/dL Glucose (74-99) mg/dL POC Glucose (mg/dL) 389 H 292 H 187 H (75-99) mg/dL Hemoglobin A1c (4.0-6.0) % Calcium (8.4-10.2) mg/dL 07/31/19 07/31/19 07/31/19 Range/Units 02:06 03:05 04:01 RBC (3.80-5.40) m/uL Sodium (137-145) mmol/L Chloride (98-107) mmol/L Carbon Dioxide (22-30) mmol/L BUN (7-17) mg/dL Glucose (74-99) mg/dL POC Glucose (mg/dL) 122 H 156 H 182 H (75-99) mg/dL Hemoglobin A1c (4.0-6.0) % Calcium (8.4-10.2) mg/dL 07/31/19 07/31/19 07/31/19 Range/Units 05:02 05:12 05:12 RBC 3.78 L (3.80-5.40) m/uL Sodium 133 L (137-145) mmol/L Chloride 108 H (98-107) mmol/L Carbon Dioxide 18 L (22-30) mmol/L BUN 30 H (7-17) mg/dL Glucose 174 H (74-99) mg/dL POC Glucose (mg/dL) 178 H (75-99) mg/dL Hemoglobin A1c (4.0-6.0) % Calcium 8.3 L (8.4-10.2) mg/dL 07/31/19 07/31/19 07/31/19 Range/Units 06:48 07:57 09:15 RBC (3.80-5.40) m/uL Sodium (137-145) mmol/L Chloride (98-107) mmol/L Carbon Dioxide (22-30) mmol/L BUN (7-17) mg/dL Glucose (74-99) mg/dL POC Glucose (mg/dL) 138 H 239 H 258 H (75-99) mg/dL Hemoglobin A1c (4.0-6.0) % Calcium (8.4-10.2) mg/dL Assessment and Plan Plan: assessment: 1 Acute diabetic ketoacidosis in a patient with a known history of type 2 diabetes mellitus and insulin noncompliance for approximately 1 week prior to admission, impproved, and on this morning's blood work anion gap has closed 2 Anion gap metabolic acidosis secondary to above, recovered 3 Hyperkalemia secondary to above, recovered 4 Hypertension 5 Mild intermittent chronic bronchial asthma, inactive. 6 Lifelong nonsmoker. 7 right shoulder pain, patient does have a component of chronic pain involving the right shoulder related to history of rotator cuff injury Plan: We'll increase the Levemir to 24 units this morning, increased mealtime Humalog to 4 units with each meal in addition to sliding scale. Continue insulin infusion 1 hour after Levemir administration. Anion gap has closed, patient is tolerating oral diet, no nausea or vomiting, there is improvement in patient's metabolic acidosis, and electrolyte imbalance. obtain right shoulder x-ray to rule out injury to the right shoulder. We'll continue to follow I performed a history & physical examination of the patient and discussed their management with my nurse practitioner, Florence Dodd. I reviewed the nurse practitioner's note and agree with the documented findings and plan of care. Lung sounds are positive for clear breath sounds. The findings and the impression was discussed with the patient. I attest to the documentation by the nurse practitioner. Time with Patient: Less than 30
[2019-07-31] MEDS: metFORMIN 500 MG TAB PO SCH ×2 (09:57→21:02)
[2019-07-31 10:00] LABS: Glucose,Whole Blood 204 mg/dL (75-99)
[2019-07-31 11:04] LABS: Glucose,Whole Blood 188 mg/dL (75-99)
[2019-07-31 12:20] LABS: Glucose,Whole Blood 127 mg/dL (75-99)
--- NOTE | 2019-07-31 13:01 | ECHOF ---
Referral Reason:weakness MEASUREMENTS -------- HEIGHT: 160.0 cm WEIGHT: 89.8 kg BP: IVSd: 0.8 cm (0.6 - 1.1) LVIDd: 4.8 cm (3.9 - 5.3) LVPWd: 0.9 cm (0.6 - 1.1) IVSs: 1.4 cm LVIDs: 1.5 cm LVPWs: 1.5 cm LAESV Index (A-L): 16.53 ml/m Ao Diam: 2.8 cm (2.0 - 3.7) LA Diam: 2.0 cm (2.7 - 3.8) AV Cusp: 2.2 cm (1.5 - 2.6) EPSS: 1.6 cm MV E Zack: 0.69 m/s MV DecT: 152 ms MV A Zack: 0.85 m/s MV E/A Ratio: 0.81 RAP: 5.00 mmHg RVSP: 11.16 mmHg MV EF SLOPE: 98.74 mm/s (70 - 150) MV EXCURSION: 13.88 mm (> 18.000) FINDINGS -------- Sinus rhythm. This was a technically adequate study. The left ventricular size is normal. Left ventricular wall thickness is normal. Overall left vent ricular systolic function is normal with, an EF between 55 - 60 %. The diastolic filling pattern is normal for the age of the patient 12.29. The RV was not well visualized. The left atrial size is normal. Normal LA size by volume 22+/-6 ml/m2. The right atrial size is normal. The aortic valve is trileaflet and appears structurally normal. The mitral valve is normal. There is trace mitral regurgitation. The tricuspid valve appears structurally normal. Trace tricuspid regurgitation present. Right sara tricular systolic pressure is normal at < 35 mmHg. There is no pulmonic regurgitation present. The aortic root size is normal. Normal inferior vena cava with normal inspiratory collapse consistent with estimated right atrial pre ssure of 5 mmHg. There is no pericardial effusion. CONCLUSIONS -------- 1. Sinus rhythm. 2. This was a technically adequate study. 3. The left ventricular size is normal. 4. Left ventricular wall thickness is normal. 5. Overall left ventricular systolic function is normal with, an EF between 55 - 60 %. 6. The diastolic filling pattern is normal for the age of the patient 12.29 7. The RV was not well visualized. 8. The left atrial size is normal. 9. Normal LA size by volume 22+/-6 ml/m2. 10. The right atrial size is normal. 11. The aortic valve is trileaflet and appears structurally normal. 12. The mitral valve is normal. 13. There is trace mitral regurgitation. 14. The tricuspid valve appears structurally normal. 15. Trace tricuspid regurgitation present. 16. Right ventricular systolic pressure is normal at < 35 mmHg. 17. There is no pulmonic regurgitation present. 18. The aortic root size is normal. 19. Normal inferior vena cava with normal inspiratory collapse consistent with estimated right atrial pressure of 5 mmHg. 20. There is no pericardial effusion. BUSINESS TAXES SPECIALIST: Jaylyn Manning RDCS
--- NOTE | 2019-07-31 14:22 | XR ---
Right shoulder HISTORY: Pain, Torn rotator cuff 3 views of the right shoulder Arthropathy present at the acromioclavicular joint. This joint space loss at the glenohumeral joint w ith marginal spurring. Right lung apex as visualized is normal. Bone mineralization is reduced. Align ment is maintained. IMPRESSION: Osteoarthritis. Shoulder MRI may be of benefit.
[2019-07-31 16:59] LABS: Glucose,Whole Blood 387 mg/dL (75-99)
[2019-07-31] MEDS ORDERED: INSULIN ASPART (NovoLOG) 100 UNIT/ML VIAL SQ ONE (17:11)
--- NOTE | 2019-07-31 19:15 | P.CNNES ---
History of Present Illness Consult date: 07/31/19 Requesting physician: Naomy Castaneda Reason for Consult: Weakness History of Present Illness: Patient is a 63-year-old female, who was admitted with diabetic ketoacidosis with a known history of type 2 diabetes and insulin noncompliance. Although electronic record state that she has not been taking her insulin for approx imately 1 week prior to admission, however patient tells me that she has not been taking medication for 3 months. Patient also had a Metabolic acidosis, hyperkalemia, hypertension. Patient came to the hospital because she felt her both thumbs were wobbling, was feeling generalized weak all over the body. She lives with her brother and [id number] and she required help from them in order to get off the toilet. Patient was found to have blood sugar over 992 when she arrived to the hospital. The nursing report noticed some left-sided weakness therefore prompted this neurology consultation. Patient does not notice any focal weakness. Patient's blood sugar has come under control and the most recent one was 174. Patient did not notice any facial droop, slurred speech problem with the vision. Patient had a carotid Doppler, which revealed suspect greater than 70% stenosis of left ICA. Antegrade flow in both vertebral arteries. Patient had a 2-D echo performed, which revealed EF between 55-60%. Left atrial size is normal. Right atrial size is normal. Mitral valve was normal. EKG showed sinus tachycardia with right atrial enlargement. Chest x-ray showed no active cardiopulmonary disease. Patient sodium is 133, potassium 3.6, BUN 30, creatinine 0.61 hemoglobin A1c 15.9 on 07/30/2019. Her previous hemoglobin A1c from 2016 was also 9.8 and 9.9. Liver panel is normal. UA showed 3+ glucose, 2+ ketones negative nitrite. Acetone positive. Patient does not take any aspirin at home. Patient has diabetes for 25 years. Patient denies any tobacco or alcohol use. Review of Systems Generalized weakness, rotator cuff tear on the right. Denies problems with vision, hoarseness or for dysphagia. Denies numbness tingling focal weakness except as above. Denies abdominal pain nausea vomiting diarrhea. Past Medical History Past Medical History: Asthma, Diabetes Mellitus, Hypertension, Osteoarthritis (OA) Additional Past Medical History / Comment(s): arthritis. History of Any Multi-Drug Resistant Organisms: None Reported Past Surgical History: Tubal Ligation Additional Past Surgical History / Comment(s): wrist surgery Past Anesthesia/Blood Transfusion Reactions: No Reported Reaction Past Psychological History: No Psychological Hx Reported Smoking Status: Never smoker Past Alcohol Use History: None Reported Past Drug Use History: None Reported - Past Family History Father Family Medical History: Cancer Mother Family Medical History: Congestive Heart Failure (CHF), Hypertension Medications and Allergies Home Medications Medication Instructions Recorded Confirmed Type Albuterol Sulfate [Proair Hfa] 1 puff INHALATION RT-Q6H PRN 07/14/16 07/30/19 History Lisinopril [Zestril] 10 mg PO QAM 07/14/16 07/30/19 History metFORMIN HCL [Glucophage] 1,000 mg PO BID 07/14/16 07/30/19 History Insulin Glargine [Lantus] 24 unit SQ HS 08/06/16 07/30/19 History Citalopram Hydrobromide 20 mg PO QAM 06/30/17 07/30/19 History [Citalopram HBr] Atorvastatin [Lipitor] 10 mg PO DAILY 07/30/19 07/30/19 History Folic Acid 1 mg PO DAILY 07/30/19 07/30/19 History Hydroxychloroquine Sulfate 200 mg PO DAILY 07/30/19 07/30/19 History [Plaquenil] Naproxen Sodium [Aleve] 220 mg PO DAILY 07/30/19 07/30/19 History predniSONE See Taper PO DAILY 07/30/19 07/30/19 History Allergies Allergy/AdvReac Type Severity Reaction Status Date / Time No Known Allergies Allergy Verified 07/30/19 12:28 Physical Examination - Vital Signs Vital Signs: Vital Signs Temp Pulse Resp BP Pulse Ox 07/31/19 08:12 97.7 F 103 H 12 96/52 100 07/31/19 07:00 98.0 F 100 18 100/65 94 L 07/30/19 22:52 97.8 F 101 H 18 90/51 99 Intake and Output 07/31/19 07/31/19 07/31/19 06:59 14:59 22:59 Intake Total 48.632 20.722 Balance 48.632 20.722 Intake: Intake, IV Titration 48.632 20.722 Amount Insulin Regular 100 unit 48.632 20.722 In Sodium Chloride 0.9% 100 ml @ Per Protocol IV .Q0M [facility] Rx#:[id number] Other: Voiding Method Toilet # Voids 2 Weight 90.1 kg On examination patient is an elderly female, in no acute distress. Patient is alert awake oriented to time place and person. Speech and language functions are normal. Attention and concentration fund of knowledge is adequate. On cranial exam showed pupils are round and reactive to light, visual dubois are full, extra ocular muscles are intact. Face is symmetric, tongue protrudes the midline. Palatal elevation and sensation normal. On muscle strength testing the patient has no pronator drift, but she could not perform well with the right arm because of rotator cuff tear. Her biceps triceps and caterer helper is equal. Her strength in the legs is about 5- in the hip flexion, knees and ankles are normal. Reflexes are diminished and plantars are possibly upgoing bilaterally. Sensory touch is equal with no neglect. No ataxia for [id number] testing. Tone and bulk of muscles normal. No carotid bruit or murmur, patient has mild peripheral edema. Results - Laboratory Findings CBC and BMP: 07/31/19 05:12 07/31/19 05:12 Abnormal Lab Findings: Abnormal Labs 07/29/19 07/29/19 07/29/19 23:20 23:20 23:20 RBC Neutrophils # 8.1 H APTT 19.9 L VBG pH VBG pCO2 VBG HCO3 Sodium 131 L Potassium 5.4 H Chloride Carbon Dioxide 12 L BUN 40 H Glucose 992 H* POC Glucose (mg/dL) Hemoglobin A1c Osmolality Calcium Phosphorus Alkaline Phosphatase 164 H Albumin 3.4 L 07/29/19 07/30/19 07/30/19 23:20 00:16 01:35 RBC Neutrophils # APTT VBG pH VBG pCO2 VBG HCO3 Sodium Potassium Chloride Carbon Dioxide BUN Glucose POC Glucose (mg/dL) >600 H 581 H Hemoglobin A1c Osmolality 353 H* Calcium Phosphorus Alkaline Phosphatase Albumin 07/30/19 07/30/19 07/30/19 01:49 02:47 03:39 RBC Neutrophils # APTT VBG pH 7.30 L VBG pCO2 29 L VBG HCO3 14 L Sodium Potassium Chloride Carbon Dioxide BUN Glucose POC Glucose (mg/dL) 435 H 360 H Hemoglobin A1c Osmolality Calcium Phosphorus Alkaline Phosphatase Albumin 07/30/19 07/30/1920 04:39 04:44 04:44 RBC Neutrophils # APTT VBG pH VBG pCO2 VBG HCO3 Sodium 134 L Potassium Chloride 111 H Carbon Dioxide 14 L BUN 33 H Glucose 300 H POC Glucose (mg/dL) 303 H Hemoglobin A1c 15.9 H Osmolality Calcium Phosphorus Alkaline Phosphatase Albumin 07/30/19 07/30/19 07/30/19 05:34 06:36 07:43 RBC Neutrophils # APTT VBG pH VBG pCO2 VBG HCO3 Sodium Potassium Chloride Carbon Dioxide BUN Glucose POC Glucose (mg/dL) 276 H 164 H 129 H Hemoglobin A1c Osmolality Calcium Phosphorus Alkaline Phosphatase Albumin 07/30/19 07/30/19 07/30/19 08:31 08:36 08:36 RBC Neutrophils # APTT VBG pH VBG pCO2 VBG HCO3 Sodium 136 L Potassium Chloride 113 H Carbon Dioxide 18 L BUN 32 H Glucose 123 H POC Glucose (mg/dL) 122 H Hemoglobin A1c Osmolality Calcium Phosphorus 2.4 L Alkaline Phosphatase Albumin 07/30/19 07/30/19 07/30/19 09:46 11:44 16:46 RBC Neutrophils # APTT VBG pH VBG pCO2 VBG HCO3 Sodium Potassium Chloride Carbon Dioxide BUN Glucose POC Glucose (mg/dL) 142 H 201 H 320 H Hemoglobin A1c Osmolality Calcium Phosphorus Alkaline Phosphatase Albumin 07/30/19 07/30/19 07/30/19 20:21 20:34 20:57 RBC Neutrophils # APTT VBG pH VBG pCO2 VBG HCO3 Sodium 129 L Potassium Chloride Carbon Dioxide 18 L BUN 26 H Glucose 590 H* POC Glucose (mg/dL) >600 H 533 H Hemoglobin A1c Osmolality Calcium 8.0 L Phosphorus Alkaline Phosphatase Albumin 07/30/19 07/30/19 07/30/19 21:46 22:40 23:08 RBC Neutrophils # APTT VBG pH VBG pCO2 VBG HCO3 Sodium Potassium Chloride Carbon Dioxide BUN Glucose POC Glucose (mg/dL) >600 H 492 H 389 H Hemoglobin A1c Osmolality Calcium Phosphorus Alkaline Phosphatase Albumin 07/31/19 07/31/19 07/31/19 00:02 00:58 02:06 RBC Neutrophils # APTT VBG pH VBG pCO2 VBG HCO3 Sodium Potassium Chloride Carbon Dioxide BUN Glucose POC Glucose (mg/dL) 292 H 187 H 122 H Hemoglobin A1c Osmolality Calcium Phosphorus Alkaline Phosphatase Albumin 07/31/19 07/31/19 07/31/19 03:05 04:01 05:02 RBC Neutrophils # APTT VBG pH VBG pCO2 VBG HCO3 Sodium Potassium Chloride Carbon Dioxide BUN Glucose POC Glucose (mg/dL) 156 H 182 H 178 H Hemoglobin A1c Osmolality Calcium Phosphorus Alkaline Phosphatase Albumin 07/31/19 07/31/19 07/31/19 05:12 05:12 06:48 RBC 3.78 L Neutrophils # APTT VBG pH VBG pCO2 VBG HCO3 Sodium 133 L Potassium Chloride 108 H Carbon Dioxide 18 L BUN 30 H Glucose 174 H POC Glucose (mg/dL) 138 H Hemoglobin A1c Osmolality Calcium 8.3 L Phosphorus Alkaline Phosphatase Albumin 07/31/19 07/31/19 07/31/19 07:57 09:15 09:59 RBC Neutrophils # APTT VBG pH VBG pCO2 VBG HCO3 Sodium Potassium Chloride Carbon Dioxide BUN Glucose POC Glucose (mg/dL) 239 H 258 H 204 H Hemoglobin A1c Osmolality Calcium Phosphorus Alkaline Phosphatase Albumin 07/31/19 07/31/19 07/31/19 11:02 12:18 16:57 RBC Neutrophils # APTT VBG pH VBG pCO2 VBG HCO3 Sodium Potassium Chloride Carbon Dioxide BUN Glucose POC Glucose (mg/dL) 188 H 127 H 387 H Hemoglobin A1c Osmolality Calcium Phosphorus Alkaline Phosphatase Albumin Assessment and Plan Assessment: * 63-year-old female admitted with DKA, had generalized weakness. Some concerns raised about left-sided weakness noted by staff. Carotid Doppler showed left ICA stenosis of > 70% (ipsilateral side to the symptoms). At present examination is nonfocal. * Poorly controlled diabetes * Hypertension Plan: * Suggest CTA of the neck for further evaluation of ICA stenosis, if no medical/renal contraindications. * Start aspirin 81 mg daily. Patient was not taking any antiplatelet medication at home. * Optimize control of diabetes. * Check fasting a.m. lipid panel. Patient is already on Lipitor 10 mg. * We will check B12, folate and TSH.
[2019-07-31 21:02] LABS: Glucose,Whole Blood 376 mg/dL (75-99)
[2019-07-31] MEDS: ATORVASTATIN 10 MG TAB PO SCH (21:02)
[2019-07-31 21:29] LABS: T4, Free (Free Thyroxine) 1.4 ng/dL (0.78-2.19)
--- NOTE | 2019-07-31 21:33 | CT ---
EXAMINATION TYPE: CT angio neck DATE OF EXAM: 07/31/2019 COMPARISON: None HISTORY: Left ICA stenosis CT DLP: 377.2 mGycm Automated exposure control for dose reduction was used. CONTRAST: Performed with IV Contrast, patient injected with 65 mL of Isovue 370. Multiple axial sections were obtained from the aortic arch to the skull base with intravenous contras t. There are 3-D post processed images. There is normal branching pattern of the great vessels on the aortic arch. There is bilateral arteria l flow in the subclavian arteries. There is bilateral arterial flow in the vertebral arteries which a re fairly symmetric. There is arterial flow in the common internal and external carotid arteries bilaterally. There is sig nificant plaque formation at the left carotid artery bifurcation. There is estimated 90% stenosis at the origin of the left internal carotid artery. There is less severe plaque on the right side and est imated 30% stenosis origin of the right internal carotid artery. There is no evidence of carotid or v ertebral artery aneurysm or dissection. There is arterial flow in the vertebrobasilar artery system. IMPRESSION: Severe stenosis origin left internal carotid artery of more than 90%. 30% stenosis origin of the right internal carotid artery.
--- NOTE | 2019-07-31 23:22 | PN ---
PROGRESS NOTE DATE OF SERVICE: 07/31/2019 This 63-year-old woman who was admitted with acute diabetic ketoacidosis is being transitioned to Lantus. Lantus 25 units was given after stopping the insulin drip, which was running at 5 units for sugars running in the 300s. Additional dose of Lantus is being planned at this time. The patient also had some weakness of the left side; possibility of TIA is being considered. Patient also was evaluated by Neurology. A carotid Doppler and 2D echo were done as part of the workup. Carotid Doppler showed greater than 70% stenosis of the left ICA and 2D echo showed ejection fraction of 55% to 60%. Patient is being closely monitored. Past medical history reviewed. REVIEW OF SYSTEMS: CARDIOVASCULAR SYSTEM: No angina, palpitations. RESPIRATORY SYSTEM: As mentioned earlier. GI: As mentioned earlier. : No dysuria or retention. NERVOUS SYSTEM: No numbness, weakness. CURRENT MEDICATIONS: Reviewed. They include: 1. Tylenol p.r.n. 2. [place] 5 mg q.6 p.r.n. 3. Ventolin. 4. Xanax 0.25 t.i.d. 5. Aspirin 81 mg p.o. daily. 6. Lipitor. 7. Celexa. 8. Folic acid. 9. Heparin. 10.Plaquenil. 11.Levemir. 12.Zestril. 13.Prednisone. PHYSICAL EXAMINATION: Patient is alert, oriented x3. Pulse is 69, blood pressure 96/56, respirations 16, temperature 97.4, pulse ox 100% on room air. HEENT: Conjunctivae normal. NECK: No jugular venous distention. CARDIOVASCULAR SYSTEM: S1, S2 muffled. RESPIRATORY SYSTEM: Breath sounds diminished at the bases. A few scattered rhonchi and crackles. ABDOMEN: Soft, non-tender. LEGS: No edema. No swelling. NERVOUS SYSTEM: No focal deficit. LABS: Accu-Cheks 188, 127, 387. ASSESSMENT: 1. Diabetes mellitus, type 2, uncontrolled, with acute diabetic ketoacidosis. 2. Weakness of the left side; possible acute transient ischemic attack. 3. Left internal carotid artery stenosis of 70%. 4. Hyponatremia. 5. Hyperkalemia. 6. Acidosis, metabolic, possibly secondary to diabetic ketoacidosis. 7. Increase osmolality. 8. History of intermittent asthma. 9. Diabetes mellitus, type 2, history. 10.Hypertension. 11.History of degenerative joint disease. 12.History of tubal ligation. 13.History of wrist surgery. 14.Obesity with body mass index of 34.6. 15.FULL CODE. RECOMMENDATIONS AND DISCUSSION: I recommend to continue current medications, continue with the monitoring, symptomatic treatment. Otherwise at this time I recommend continuing with Lantus 25 units subcutaneously b.i.d. and additional dose of Lantus currently and continue with Accu- Cheks before meals and at bedtime. The patient was seen by Neurology, also. I would also recommend vascular surgery consultation. Follow closely with multiple consultants. Prognosis guarded because of multiple complex medical issues. Further recommendations to follow. CT of the neck was recommended by Neurology. Further recommendations to follow. MMODL / IJN: [id number] /
[2019-08-01 04:55] LABS: Basophils % (A) 0 %; Eosinophils # (A) 0.2 k/uL (0-0.7); Eosinophils % (A) 2 %; HCT 33.7 % (34.0-46.0); HGB 11.1 gm/dL (11.4-16.0); Lymphocytes # (A) 2.1 k/uL (1.0-4.8); Lymphocytes % (A) 27 %; MCH 30.2 pg (25.0-35.0); MCHC 32.9 g/dL (31.0-37.0); MCV 91.7 fL (80.0-100.0); Monocytes # (A) 0.2 k/uL (0-1.0); Monocytes % (A) 3 %; Neutrophils # (A) 5.1 k/uL (1.3-7.7); Neutrophils % (A) 66 %; Platelet Count 233 k/uL (150-450); RBC 3.67 m/uL (3.80-5.40); RDW 13.1 % (11.5-15.5); WBC 7.7 k/uL (3.8-10.6)
[2019-08-01 05:10] LABS: African American GFR (CKD) >90 (>60 ml/min/1.73 sqM); Anion Gap 4 mmol/L; Blood Urea Nitrogen 35 mg/dL (7-17); Calcium 8.4 mg/dL (8.4-10.2); Carbon Dioxide 22 mmol/L (22-30); Chloride 107 mmol/L (98-107); Glucose 71 mg/dL (74-99); Non-African American GFR(CKD) >90 (>60 ml/min/1.73 sqM); Potassium 4.2 mmol/L (3.5-5.1); Sodium 133 mmol/L (137-145)
[2019-08-01] MEDS ORDERED: INSULIN DETEMIR (LEVEMIR) 100 UNIT/ML SYR SQ SCH (07:00)
[2019-08-01 07:03] LABS: Glucose,Whole Blood 83 mg/dL (75-99)
[2019-08-01] MEDS: INSULIN ASPART (NovoLOG) 100 UNIT/ML VIAL SQ SCH ×4 (07:10→13:18)
[2019-08-01] MEDS: predniSONE 5 MG TAB PO SCH (08:42)
[2019-08-01] MEDS: CITALOPRAM HYDROBROMIDE 20 MG TAB PO SCH (08:42)
[2019-08-01] MEDS: NAPROXEN 250 MG TAB PO SCH (08:42)
[2019-08-01] MEDS: HEPARIN SODIUM,PORCINE 5,000 UNIT/ML 1 ML VIAL SQ SCH (08:42)
[2019-08-01] MEDS: INSULIN DETEMIR (LEVEMIR) 100 UNIT/ML SYR SQ SCH (08:42)
[2019-08-01] MEDS: ASPIRIN 81 MG PO SCH (08:43)
[2019-08-01] MEDS: FOLIC ACID 1 MG TAB PO SCH (08:43)
[2019-08-01] MEDS: LISINOPRIL 10 MG TAB PO SCH (08:43)
[2019-08-01] MEDS: HYDROXYCHLOROQUINE SULFATE 200 MG TAB PO SCH (08:43)
[2019-08-01] MEDS: HYDROcodone/APAP 5-325MG 1 EACH TAB PO PRN ×2 (08:52→17:06)
--- NOTE | 2019-08-01 09:07 | P.GSCN ---
History of Present Illness Consult date: 08/01/19 Reason for Consult: Carotid stenosis History of present illness: Patient is a pleasant 63-year-old female with a past medical history of diabetes mellitus, hypertension, hyperlipidemia, asthma, and osteoarthritis. The patient presented to the emergency department after having acute onset of left upper extremity weakness on July 27. The patient states she has a right rotator cuff injury, however when the left arm became weak she was concerned and came into the emergency room. The patient denied any other focal deficits, including slurred speech, visual changes, lower extremity weakness, headache, or right sided weakness other than her right upper extremity with the rotator cuff injury. Upon presentation to the emergency department the patient's glucose level was 992 and was found to be in diabetic ketoacidosis. The patient states that she stopped taking her insulin at home 1-2 weeks prior to this admission, because she didn't want to take it.. The patient currently denies any further deficits, states left upper extremity weakness has improved some. The patient denies any prior history of stroke or TIAs, peripheral arterial disease or carotid stenosis, and is a lifetime non-smoker. The patient denies any pain in her lower extremities, pain with walking, shortness of breath, or chest pain. Review of Systems Review of systems completed and all pertinent positives and negatives as stated in the HPI Past Medical History Past Medical History: Asthma, Diabetes Mellitus, Hypertension, Osteoarthritis (OA) Additional Past Medical History / Comment(s): arthritis. History of Any Multi-Drug Resistant Organisms: None Reported Past Surgical History: Tubal Ligation Additional Past Surgical History / Comment(s): wrist surgery Past Anesthesia/Blood Transfusion Reactions: No Reported Reaction Past Psychological History: No Psychological Hx Reported Smoking Status: Never smoker Past Alcohol Use History: None Reported Past Drug Use History: None Reported - Past Family History Father Family Medical History: Cancer Mother Family Medical History: Congestive Heart Failure (CHF), Hypertension Medications and Allergies Home Medications Medication Instructions Recorded Confirmed Type Albuterol Sulfate [Proair Hfa] 1 puff INHALATION RT-Q6H PRN 07/14/16 07/30/19 History Lisinopril [Zestril] 10 mg PO QAM 07/14/16 07/30/19 History metFORMIN HCL [Glucophage] 1,000 mg PO BID 07/14/16 07/30/19 History Insulin Glargine [Lantus] 24 unit SQ HS 08/06/16 07/30/19 History Citalopram Hydrobromide 20 mg PO QAM 06/30/17 07/30/19 History [Citalopram HBr] Atorvastatin [Lipitor] 10 mg PO DAILY 07/30/19 07/30/19 History Folic Acid 1 mg PO DAILY 07/30/19 07/30/19 History Hydroxychloroquine Sulfate 200 mg PO DAILY 07/30/19 07/30/19 History [Plaquenil] Naproxen Sodium [Aleve] 220 mg PO DAILY 07/30/19 07/30/19 History Allergies Allergy/AdvReac Type Severity Reaction Status Date / Time No Known Allergies Allergy Verified 07/30/19 12:28 Surgical - Exam Vital Signs Temp Pulse Resp BP Pulse Ox 97.9 F 122 H 22 136/88 99 07/29/19 22:56 07/29/19 22:56 07/29/19 22:56 07/29/19 22:56 07/29/19 22:56 General appearance: The patient is alert, oriented, in no acute distress. HET: Head is normocephalic and atraumatic. Pupils are equal and reactive. Neck: Supple without lymphadenopathy. No audible carotid bruit, bilateral. Heart: S1 S2. Regular rate and rhythm. Lungs: No crackles or wheezes are heard. Abdomen: Soft, nontender, nondistended with bowel sounds. No peritoneal signs. No palpable organomegaly or masses. Extremities: Normal skin color and turgor. No cyanosis, rash, ulceration, clubbing, or edema. Radial and pedal pulses are 2/4 bilaterally. Neurological: No focal deficits. Mild bilateral upper extremity weakness, right related to rotator cuff injury with decreased ROM. Good strength and tone bilateral lower extremities. Patient is alert and oriented 3. Has facial symmetry. Speech is clear and appropriate. Results Carotid Doppler shows right ICA 88.9, with a 1.2 ratio. Left ICA 302, with a 3.0 ratio. Greater than 70% left ICA. Neck CTA shows severe stenosis origin left ICA greater than 90%, right ICA 30%. - Labs 08/01/19 04:25 08/01/19 04:25 Abnormal Lab Results - Last 24 Hours (Table) 07/31/19 07/31/19 07/31/19 Range/Units 05:12 09:15 09:59 RBC (3.80-5.40) m/uL Hgb (11.4-16.0) gm/dL Hct (34.0-46.0) % Sodium (137-145) mmol/L BUN (7-17) mg/dL Glucose (74-99) mg/dL POC Glucose (mg/dL) 258 H 204 H (75-99) mg/dL Plasma Lactic Acid Chris (0.7-2.0) mmol/L TSH 11.000 H (0.465-4.680) mIU/L 07/31/19 07/31/19 07/31/19 Range/Units 11:02 12:18 16:57 RBC (3.80-5.40) m/uL Hgb (11.4-16.0) gm/dL Hct (34.0-46.0) % Sodium (137-145) mmol/L BUN (7-17) mg/dL Glucose (74-99) mg/dL POC Glucose (mg/dL) 188 H 127 H 387 H (75-99) mg/dL Plasma Lactic Acid Chris (0.7-2.0) mmol/L TSH (0.465-4.680) mIU/L 07/31/19 07/31/19 08/01/19 Range/Units 21:00 23:18 04:25 RBC 3.67 L (3.80-5.40) m/uL Hgb 11.1 L (11.4-16.0) gm/dL Hct 33.7 L (34.0-46.0) % Sodium (137-145) mmol/L BUN (7-17) mg/dL Glucose (74-99) mg/dL POC Glucose (mg/dL) 376 H (75-99) mg/dL Plasma Lactic Acid Chris 2.4 H* (0.7-2.0) mmol/L TSH (0.465-4.680) mIU/L 08/01/19 Range/Units 04:25 RBC (3.80-5.40) m/uL Hgb (11.4-16.0) gm/dL Hct (34.0-46.0) % Sodium 133 L (137-145) mmol/L BUN 35 H (7-17) mg/dL Glucose 71 L (74-99) mg/dL POC Glucose (mg/dL) (75-99) mg/dL Plasma Lactic Acid Chris (0.7-2.0) mmol/L TSH (0.465-4.680) mIU/L Diabetes panel 08/01/19 Range/Units 04:25 Sodium 133 L (137-145) mmol/L Potassium 4.2 (3.5-5.1) mmol/L Chloride 107 (98-107) mmol/L Carbon Dioxide 22 (22-30) mmol/L BUN 35 H (7-17) mg/dL Creatinine 0.70 (0.52-1.04) mg/dL Glucose 71 L (74-99) mg/dL Calcium 8.4 (8.4-10.2) mg/dL Thyroid panel 07/31/19 Range/Units 05:12 TSH 11.000 H (0.465-4.680) mIU/L Calcium panel 08/01/19 Range/Units 04:25 Calcium 8.4 (8.4-10.2) mg/dL Pituitary panel 07/31/19 08/01/19 Range/Units 05:12 04:25 Sodium 133 L (137-145) mmol/L Potassium 4.2 (3.5-5.1) mmol/L Chloride 107 (98-107) mmol/L Carbon Dioxide 22 (22-30) mmol/L BUN 35 H (7-17) mg/dL Creatinine 0.70 (0.52-1.04) mg/dL Glucose 71 L (74-99) mg/dL Calcium 8.4 (8.4-10.2) mg/dL TSH 11.000 H (0.465-4.680) mIU/L Adrenal panel 08/01/19 Range/Units 04:25 Sodium 133 L (137-145) mmol/L Potassium 4.2 (3.5-5.1) mmol/L Chloride 107 (98-107) mmol/L Carbon Dioxide 22 (22-30) mmol/L BUN 35 H (7-17) mg/dL Creatinine 0.70 (0.52-1.04) mg/dL Glucose 71 L (74-99) mg/dL Calcium 8.4 (8.4-10.2) mg/dL Assessment and Plan Assessment: #1 Asymptomatic carotid stenosis #2 left upper extremity weakness #3 diabetic ketoacidosis #4 hypertension #5 hyperlipidemia Plan: Carotid ultrasound and CTA of the neck reviewed. Patient discussed with Dr. Garcia/Dr. Hook. Patient has asymptomatic left internal carotid artery stenosis, no vascular surgical interventions recommended at this time. Patient is recommended to follow up outpatient with Dr. Garcia or Dr. Hook to discuss any possible future surgical interventions. Continue daily low-dose aspirin and will increase atorvastatin to 40 mg daily. This consultation note stating permanent implant care the patient during her hospital stay. The above dictated assessment and findings were discussed with Dr. Hook. The impression and plan of care have been directed as dictated.
[2019-08-01 09:31] VITALS: RESP 16
[2019-08-01 11:49] LABS: Glucose,Whole Blood 264 mg/dL (75-99)
[2019-08-01 13:07] LABS: Folate, Serum 12.3 ng/mL
--- NOTE | 2019-08-01 13:23 | P.PN ---
Subjective Progress Note Date: 08/01/19 Patient offers no new symptoms. Patient is sitting in the recliner, having her lunch. No new focal symptoms. Objective - Vital Signs Vital signs: Vital Signs Temp 98.3 F 08/01/19 07:45 Pulse 88 08/01/19 07:45 Resp 16 08/01/19 07:45 BP 95/59 08/01/19 07:45 Pulse Ox 97 08/01/19 07:45 Intake & Output 07/31/19 08/01/19 08/01/19 18:59 06:59 18:59 Intake Total 20.722 20 240 Balance 20.722 20 240 Weight 90.1 kg Intake: Intake, IV Titration 20.722 Amount Insulin Regular 100 unit 20.722 In Sodium Chloride 0.9% 100 ml @ Per Protocol IV .Q0M COUNTS INCLUDE 234 BEDS AT THE [facility] Rx#:[id number] Oral 20 240 Other: Voiding Method Toilet Toilet # Voids 1 - Exam Nonfocal. - Labs CBC & Chem 7: 08/01/19 04:25 08/01/19 04:25 Labs: Abnormal Lab Results - Last 24 Hours (Table) 07/31/19 07/31/19 07/31/19 Range/Units 05:12 16:57 21:00 RBC (3.80-5.40) m/uL Hgb (11.4-16.0) gm/dL Hct (34.0-46.0) % Sodium (137-145) mmol/L BUN (7-17) mg/dL Glucose (74-99) mg/dL POC Glucose (mg/dL) 387 H 376 H (75-99) mg/dL Plasma Lactic Acid Chris (0.7-2.0) mmol/L TSH 11.000 H (0.465-4.680) mIU/L 07/31/19 08/01/19 08/01/19 Range/Units 23:18 04:25 04:25 RBC 3.67 L (3.80-5.40) m/uL Hgb 11.1 L (11.4-16.0) gm/dL Hct 33.7 L (34.0-46.0) % Sodium 133 L (137-145) mmol/L BUN 35 H (7-17) mg/dL Glucose 71 L (74-99) mg/dL POC Glucose (mg/dL) (75-99) mg/dL Plasma Lactic Acid Chris 2.4 H* (0.7-2.0) mmol/L TSH (0.465-4.680) mIU/L 08/01/19 Range/Units 11:47 RBC (3.80-5.40) m/uL Hgb (11.4-16.0) gm/dL Hct (34.0-46.0) % Sodium (137-145) mmol/L BUN (7-17) mg/dL Glucose (74-99) mg/dL POC Glucose (mg/dL) 264 H (75-99) mg/dL Plasma Lactic Acid Chris (0.7-2.0) mmol/L TSH (0.465-4.680) mIU/L Assessment and Plan Assessment: * 63-year-old female admitted with DKA, had generalized weakness. * Asymptomatic left ICA stenosis. At present examination is nonfocal. * Poorly controlled diabetes * Mild B12 deficiency * Hypothyroidism * Hypertension Plan: * CTA of the neck with IV contrast revealed severe stenosis or region left ICA of > 90%. Patient was seen by vascular surgery, input appreciated. Patient will follow up with vascular surgeon as outpatient. * Continue aspirin 81 mg daily. Patient was not taking any antiplatelet medication at home. * Optimize control of diabetes. * Check fasting a.m. lipid panel. Lipitor increased to 40 mg. * B12 is slightly low, 292, folate 12.3, TSH is elevated 11.0. Free T4 normal 1.40. * We will start B12 replacement. Internal medicine to address hypothyroidism. * Neurologically clear.
[2019-08-01] MEDS ORDERED: CYANOCOBALAMIN 1,000 MCG/ML 1 ML VIAL IM SCH (13:30)
[2019-08-01 14:21] LABS: Cholesterol 235 mg/dL (<200); HDL Cholesterol 49 mg/dL (40-60); LDL Cholesterol,Calculated 125 mg/dL (0-99); Triglycerides 303 mg/dL (<150)
--- NOTE | 2019-08-01 15:32 | P.DS ---
Providers Date of admission: 07/30/19 03:07 Attending physician: Naomy Castaneda Consults: 07/30/19 03:07 Consult Physician Stat Consulting Provider: Riki Cerrato Consult Reason/Comments: ICU management Do you want consulting provider notified?: Already Contacted 07/30/19 14:46 Consult Physician Stat Consulting Provider: Chelly Valdez Consult Reason/Comments: weakness Do you want consulting provider notified?: Already Contacted 07/31/19 20:24 Consult Physician Routine Consulting Provider: Desmond Bocanegra Consult Reason/Comments: carotid stenosis Do you want consulting provider notified?: Yes Primary care physician: [facility] Course: 63-year-old female with type 2 diabetes mellitus and insulin deficiency came in with the diabetic ketoacidosis and highly elevated blood sugars of 600 due to noncompliance with her insulin, patient is doing better now patient is also workup for TIA and stroke all the workup is negative except for 90% stenosis of the left side carotid for which patient was evaluated by vascular surgery follow-up with them as an outpatient and the patient will be started and aspirin as recommended by neurology. Patient is also on prednisone for rheumatoid art hritis. Patient had on and a blood sugars which are extremely low because of that reason I'm not increasing the dose of insulin since the her elevated blood sugars in DKA secondary to noncompliance with medication. Patient was asked to check the blood sugars closely off prednisone and follow with PCP to titrate her insulin regimen as of now patient will be discharged on home dose of Lantus. Patient has elevated LDL as well patient is noncompliant with her statins as well counseling regarding this was provided and patient will be discharged today. Patient is hyponatremic hyponatremia improved but serum sodium is still mildly low no further intervention at this time follow-up with PCP for this is as an outpatient as well. PHYSICAL EXAMINATION: GENERAL: The patient is alert and oriented x3, not in any acute distress. Well developed, well nourished. HEENT: Pupils are round and equally reacting to light. EOMI. No scleral icterus. No conjunctival pallor. Normocephalic, atraumatic. No pharyngeal erythema. No thyromegaly. CARDIOVASCULAR: S1 and S2 present. No murmurs, rubs, or gallops. PULMONARY: Chest is clear to auscultation, no wheezing or crackles. ABDOMEN: Soft, nontender, nondistended, normoactive bowel sounds. No palpable organomegaly. MUSCULOSKELETAL: No joint swelling or deformity. EXTREMITIES: No cyanosis, clubbing, or pedal edema. NEUROLOGICAL: Gross neurological examination did not reveal any focal deficits. SKIN: No rashes. Please refer to dictation from Dr. Castaneda for further details of hospital physician and other medical problems that were addressed here Patient Condition at Discharge: Serious Plan - Discharge Summary New Discharge Prescriptions: New Aspirin 81 mg PO DAILY #30 chewable Continue Lisinopril [Zestril] 10 mg PO QAM Albuterol Sulfate [Proair Hfa] 1 puff INHALATION RT-Q6H PRN PRN Reason: Shortness Of Breath metFORMIN HCL [Glucophage] 1,000 mg PO BID Insulin Glargine [Lantus] 24 unit SQ HS Citalopram Hydrobromide [Citalopram HBr] 20 mg PO QAM Atorvastatin [Lipitor] 10 mg PO DAILY Naproxen Sodium [Aleve] 220 mg PO DAILY Folic Acid 1 mg PO DAILY Hydroxychloroquine Sulfate [Plaquenil] 200 mg PO DAILY Discontinued predniSONE See Taper PO DAILY Discharge Medication List Albuterol Sulfate [Proair Hfa] 1 puff INHALATION RT-Q6H PRN 07/14/16 [History] Lisinopril [Zestril] 10 mg PO QAM 07/14/16 [History] metFORMIN HCL [Glucophage] 1,000 mg PO BID 07/14/16 [History] Insulin Glargine [Lantus] 24 unit SQ HS 08/06/16 [History] Citalopram Hydrobromide [Citalopram HBr] 20 mg PO QAM 06/30/17 [History] Atorvastatin [Lipitor] 10 mg PO DAILY 07/30/19 [History] Folic Acid 1 mg PO DAILY 07/30/19 [History] Hydroxychloroquine Sulfate [Plaquenil] 200 mg PO DAILY 07/30/19 [History] Naproxen Sodium [Aleve] 220 mg PO DAILY 07/30/19 [History] Aspirin 81 mg PO DAILY #30 chewable 08/01/19 [Rx] Follow up Appointment(s)/Referral(s): Lidia Felipe MD [Primary Care Provider] - 08/06/19 9:30 am Activity/Diet/Wound Care/Special Instructions: Your insurance requires you to use [facility] [facility] for your diabetic supplies. They can be reached at [phone] and by fax at [phone]. You can visit the website [email or web address] for more information also. Discharge Disposition: HOME SELF-CARE
[2019-08-01 16:08] VITALS: BP 122/73; PULSE 89; TEMP 98
[2019-08-01] MEDS ORDERED: ATORVASTATIN 40 MG TAB PO SCH (21:00)
== END 2019-08-01 17:25 | disposition home or self-care (01) | DRG 638 ==
LOC: EC 22:47 → 2SICU 07-30 03:07 → 4SSUR 07-31 20:55
PROVIDERS: ADMIT Hospitalist; ATTEND Hospitalist
DX: E11.10 Type 2 diabetes mellitus with ketoacidosis without coma (principal); E87.1 Hypo-osmolality and hyponatremia; I11.9 Hypertensive heart disease without heart failure; R00.0 Tachycardia, unspecified; J45.20 Mild intermittent asthma, uncomplicated; M19.90 Unspecified osteoarthritis, unspecified site; E87.5 Hyperkalemia; E66.9 Obesity, unspecified; R32 Unspecified urinary incontinence; I65.22 Occlusion and stenosis of left carotid artery; E78.5 Hyperlipidemia, unspecified; R53.1 Weakness; G89.29 Other chronic pain; M25.511 Pain in right shoulder; E53.8 Deficiency of other specified B group vitamins; E03.9 Hypothyroidism, unspecified; M06.9 Rheumatoid arthritis, unspecified; T38.3X6A Underdosing of insulin and oral hypoglycemic [antidiabetic] drugs, initial encounter; Z68.34 Body mass index [BMI] 34.0-34.9, adult; Z79.1 Long term (current) use of non-steroidal anti-inflammatories (NSAID); Z79.4 Long term (current) use of insulin; Z79.899 Other long term (current) drug therapy; Z91.128 Patient's intentional underdosing of medication regimen for other reason; Z98.51 Tubal ligation status; Z80.9 Family history of malignant neoplasm, unspecified; Z82.49 Family history of ischemic heart disease and other diseases of the circulatory system
CPT/HCPCS: 36415; 70450; 70498; 71046; 80048; 80051; 80053; 80061; 81003; 82009; 82565; 82607; 82746; 82803; 82947; 83036; 83605; 83735; 83930; 84100; 84439; 84443; 84520; 85025; 85610; 85730; 93005; 93306; 93880; 96360; 96361; 99291

== ENCOUNTER 2019-08-21 04:19 | Emergency (ER) | payer OTHER ==
[2019-08-21 04:24] VITALS: TEMP 98
[2019-08-21] MEDS ORDERED: predniSONE 20 MG TAB PO STA (04:58)
[2019-08-21] MEDS ORDERED: KETOROLAC 30 MG/ML 1 ML VIAL IVP STA (04:58)
[2019-08-21] MEDS ORDERED: MORPHINE SULFATE 4 MG/ML SYRINGE IV STA (04:58)
--- NOTE | 2019-08-21 05:19 | ED ---
General Adult HPI - General Chief complaint: Recheck/Abnormal Lab/Rx Stated complaint: Pain Source: patient, EMS Mode of arrival: EMS - History of Present Illness Initial comments: This patient is 63-year-old woman with history of rheumatoid arthritis, presents with complaint that it feels like her rheumatoid is flaring up. She is having pains to multiple joints. She indicates the bilateral hips, knees, shoulders elbows and wrists. She states she has been trying Tylenol at home without much relief. She does not have any other analgesics at home. She denies fever or chills. She denies any symptoms different than her usual rheumatoid pain Onset/Timin -: hour(s) Consistency: constant Improves with: none Worsens with: none Associated Symptoms: denies other symptoms Treatments Prior to Arrival: other - Related Data Home Medications Medication Instructions Recorded Confirmed Albuterol Sulfate [Proair Hfa] 1 puff INHALATION RT-Q6H PRN 07/14/16 07/30/19 Lisinopril [Zestril] 10 mg PO QAM 07/14/16 07/30/19 metFORMIN HCL [Glucophage] 1,000 mg PO BID 07/14/16 07/30/19 Citalopram Hydrobromide 20 mg PO QAM 06/30/17 07/30/19 [Citalopram HBr] Atorvastatin [Lipitor] 10 mg PO DAILY 07/30/19 07/30/19 Folic Acid 1 mg PO DAILY 07/30/19 07/30/19 Hydroxychloroquine Sulfate 200 mg PO DAILY 07/30/19 07/30/19 [Plaquenil] Naproxen Sodium [Aleve] 220 mg PO DAILY 07/30/19 07/30/19 Previous Rx's Medication Instructions Recorded Aspirin 81 mg PO DAILY #30 chewable 08/01/19 INSULIN ASPART (NovoLOG) [NovoLOG 8 unit SQ ACHS #1 pen 08/01/19 (formulary)] Insulin Glargine [Lantus] 30 unit SQ HS #1 pen 08/01/19 predniSONE 60 mg PO DAILY #30 tab 08/21/19 traMADol HCl [Ultram] 50 mg PO Q6H PRN #20 tab 08/21/19 Allergies Allergy/AdvReac Type Severity Reaction Status Date / Time No Known Allergies Allergy Verified 07/30/19 12:28 Review of Systems ROS Statement: Those systems with pertinent positive or pertinent negative responses have been documented in the HPI. ROS Other: All systems not noted in ROS Statement are negative. Constitutional: Denies: fever, chills, weakness Respiratory: Denies: cough, dyspnea Cardiovascular: Denies: chest pain, palpitations Gastrointestinal: Denies: abdominal pain, vomiting, diarrhea Genitourinary: Denies: dysuria Musculoskeletal: Reports: joint swelling, arthralgia. Denies: back pain Skin: Denies: rash Neurological: Denies: headache, weakness, numbness Past Medical History Past Medical History: Asthma, Diabetes Mellitus, Hypertension, Osteoarthritis (OA) Additional Past Medical History / Comment(s): arthritis. History of Any Multi-Drug Resistant Organisms: None Reported Past Surgical History: Tubal Ligation Additional Past Surgical History / Comment(s): wrist surgery Past Anesthesia/Blood Transfusion Reactions: No Reported Reaction Past Psychological History: No Psychological Hx Reported Smoking Status: Never smoker Past Alcohol Use History: None Reported Past Drug Use History: None Reported - Past Family History Father Family Medical History: Cancer Mother Family Medical History: Congestive Heart Failure (CHF), Hypertension General Exam General appearance: alert, in no apparent distress Head exam: Present: atraumatic, normocephalic Eye exam: Present: normal appearance Respiratory exam: Present: normal lung sounds bilaterally. Absent: respiratory distress, wheezes, rales, rhonchi, stridor Cardiovascular Exam: Present: regular rate, normal rhythm, normal heart sounds. Absent: systolic murmur, diastolic murmur, rubs, gallop GI/Abdominal exam: Present: soft. Absent: distended, tenderness, guarding Extremities exam: Present: tenderness, other (Patient does have some tenderness and swelling through multiple joints including the bilateral hands, wrists, knees.) Neurological exam: Present: alert Skin exam: Present: warm, dry, intact, normal color. Absent: rash Course Vital Signs 08/21/19 08/21/19 04:21 06:35 Temperature 98 F Pulse Rate 126 H 116 H Respiratory 18 18 Rate Blood Pressure 142/70 101/52 O2 Sat by Pulse 98 98 Oximetry Medical Decision Making - Medical Decision Making Patient is 63-year-old woman presenting with exacerbation of rheumatoid arthritis. She is feeling much better following medications and states she fee ls she would like to try going home. She'll be given prescription for prednisone and to follow with Dr. Morris - Lab Data Result diagrams: 08/21/19 05:11 08/21/19 05:11 Lab Results 08/21/19 08/21/19 08/21/19 Range/Units 05:11 05:11 05:11 WBC 9.9 (3.8-10.6) k/uL RBC 3.21 L (3.80-5.40) m/uL Hgb 9.6 L D (11.4-16.0) gm/dL Hct 29.2 L (34.0-46.0) % MCV 90.9 (80.0-100.0) fL MCH 29.9 (25.0-35.0) pg MCHC 32.9 (31.0-37.0) g/dL RDW 13.8 (11.5-15.5) % Plt Count 643 H D (150-450) k/uL Neutrophils % 78 % Lymphocytes % 14 % Monocytes % 5 % Eosinophils % 1 % Basophils % 0 % Neutrophils # 7.7 (1.3-7.7) k/uL Lymphocytes # 1.4 (1.0-4.8) k/uL Monocytes # 0.5 (0-1.0) k/uL Eosinophils # 0.1 (0-0.7) k/uL Basophils # 0.0 (0-0.2) k/uL Sodium 137 (137-145) mmol/L Potassium 4.4 (3.5-5.1) mmol/L Chloride 106 (98-107) mmol/L Carbon Dioxide 22 (22-30) mmol/L Anion Gap 9 mmol/L BUN 23 H (7-17) mg/dL Creatinine 0.78 (0.52-1.04) mg/dL Est GFR (CKD-EPI)AfAm >90 (>60 ml/min/1.73 sqM) Est GFR (CKD-EPI)NonAf 81 (>60 ml/min/1.73 sqM) Glucose 70 L (74-99) mg/dL Calcium 8.9 (8.4-10.2) mg/dL Total Bilirubin 0.4 (0.2-1.3) mg/dL AST 17 (14-36) U/L ALT 10 (4-34) U/L Alkaline Phosphatase 82 (38-126) U/L C-Reactive Protein 223.5 H (<10.0) mg/L Total Protein 5.7 L (6.3-8.2) g/dL Albumin 2.6 L (3.5-5.0) g/dL Acetone, Qual Negative (Negative) Disposition Clinical Impression: Polyarthralgia, Rheumatoid arthritis flare Disposition: HOME SELF-CARE Condition: Fair Instructions (If sedation given, give patient instructions): Rheumatoid Arthritis (ED) Prescriptions: predniSONE 60 mg PO DAILY #30 tab traMADol HCl [Ultram] 50 mg PO Q6H PRN #20 tab PRN Reason: Pain Is patient prescribed a controlled substance at d/c from ED?: Yes Referrals: Lidia Felipe MD [Primary Care Provider] - 1-2 days
[2019-08-21 05:40] LABS: Basophils % (A) 0 %; Eosinophils # (A) 0.1 k/uL (0-0.7); Eosinophils % (A) 1 %; HCT 29.2 % (34.0-46.0); Lymphocytes # (A) 1.4 k/uL (1.0-4.8); Lymphocytes % (A) 14 %; MCH 29.9 pg (25.0-35.0); MCHC 32.9 g/dL (31.0-37.0); MCV 90.9 fL (80.0-100.0); Mean Platelet Volume 7.8; Monocytes # (A) 0.5 k/uL (0-1.0); Monocytes % (A) 5 %; Neutrophils # (A) 7.7 k/uL (1.3-7.7); Neutrophils % (A) 78 %; RBC 3.21 m/uL (3.80-5.40); RDW 13.8 % (11.5-15.5); WBC 9.9 k/uL (3.8-10.6)
[2019-08-21 05:49] LABS: HGB 9.6 gm/dL (11.4-16.0); Platelet Count 643 k/uL (150-450)
[2019-08-21 05:53] LABS: ALT 10 U/L (4-34); AST 17 U/L (14-36); African American GFR (CKD) >90 (>60 ml/min/1.73 sqM); Albumin 2.6 g/dL (3.5-5.0); Alkaline Phosphatase 82 U/L (38-126); Anion Gap 9 mmol/L; Blood Urea Nitrogen 23 mg/dL (7-17); Calcium 8.9 mg/dL (8.4-10.2); Carbon Dioxide 22 mmol/L (22-30); Chloride 106 mmol/L (98-107); Glucose 70 mg/dL (74-99); Non-African American GFR(CKD) 81 (>60 ml/min/1.73 sqM); Potassium 4.4 mmol/L (3.5-5.1); Sodium 137 mmol/L (137-145); Total Bilirubin 0.4 mg/dL (0.2-1.3); Total Protein 5.7 g/dL (6.3-8.2)
[2019-08-21 06:05] LABS: C Reactive Protein 223.5 mg/L (<10.0)
[2019-08-21] MEDS ORDERED: HYDROmorphone 0.5 MG/0.5 ML SYRINGE IVP STA (06:22)
[2019-08-21 06:36] VITALS: BP 101/52; PULSE 116
[2019-08-21 07:39] VITALS: RESP 20
== END 2019-08-21 07:39 | disposition home or self-care (01) ==
LOC: EC 04:19
DX: M06.9 Rheumatoid arthritis, unspecified (principal); M25.50 Pain in unspecified joint; J45.909 Unspecified asthma, uncomplicated; E11.9 Type 2 diabetes mellitus without complications; I10 Essential (primary) hypertension; Z79.84 Long term (current) use of oral hypoglycemic drugs; Z79.899 Other long term (current) drug therapy; Z79.1 Long term (current) use of non-steroidal anti-inflammatories (NSAID)
CPT/HCPCS: 36415; 80053; 82009; 85025; 86140; 99283; 96374; 96375 ×2; J2270; J1885; J7512; J1170

== ENCOUNTER 2019-11-01 15:43 | Emergency (ER) | payer OTHER ==
[2019-11-01 15:47] VITALS: TEMP 98
[2019-11-01] MEDS ORDERED: SODIUM CHLORIDE 0.9% 1,000 ML IV STA (16:11)
[2019-11-01] MEDS ORDERED: ONDANSETRON 4 MG/2 ML VIAL IVP STA (16:11)
--- NOTE | 2019-11-01 16:19 | ED ---
Abdominal Pain HPI - General Chief Complaint: Abdominal Pain Stated Complaint: Lower abd pain Time Seen by Provider: 11/01/19 15:48 Source: patient Mode of arrival: ambulatory Limitations: no limitations - History of Present Illness Initial Comments: Patient is a 63-year-old female presenting to the emergency department with a chief complaint of abdominal pain. States her pain is located in the right lower back region that has been ongoing for over 2 months. Patient states the pain does not radiate down her right lower extremity. Also reports developing right lower quadrant pain over the last 2 weeks along with nausea and 2 episodes of nonbilious, nonbloody vomiting. Patient denies any diarrhea. States the pain is not related to by mouth intake. Denies any night sweats fevers or chills. Denies chest pain shortness of breath headaches. Denies any urinary or vaginal symptoms. Denies hematuria, hematochezia or melena. - Related Data Home Medications Medication Instructions Recorded Confirmed Albuterol Sulfate [Proair Hfa] 1 puff INHALATION RT-Q6H PRN 07/14/16 07/30/19 Lisinopril [Zestril] 10 mg PO QAM 07/14/16 07/30/19 metFORMIN HCL [Glucophage] 1,000 mg PO BID 07/14/16 07/30/19 Citalopram Hydrobromide 20 mg PO QAM 06/30/17 07/30/19 [Citalopram HBr] Atorvastatin [Lipitor] 10 mg PO DAILY 07/30/19 07/30/19 Folic Acid 1 mg PO DAILY 07/30/19 07/30/19 Hydroxychloroquine Sulfate 200 mg PO DAILY 07/30/19 07/30/19 [Plaquenil] Naproxen Sodium [Aleve] 220 mg PO DAILY 07/30/19 07/30/19 Previous Rx's Medication Instructions Recorded Aspirin 81 mg PO DAILY #30 chewable 08/01/19 INSULIN ASPART (NovoLOG) [NovoLOG 8 unit SQ ACHS #1 pen 08/01/19 (formulary)] Insulin Glargine [Lantus] 30 unit SQ HS #1 pen 08/01/19 predniSONE 60 mg PO DAILY #30 tab 08/21/19 traMADol HCl [Ultram] 50 mg PO Q6H PRN #20 tab 08/21/19 Allergies Allergy/AdvReac Type Severity Reaction Status Date / Time No Known Allergies Allergy Verified 11/01/19 15:47 Review of Systems ROS Statement: Those systems with pertinent positive or pertinent negative responses have been documented in the HPI. ROS Other: All systems not noted in ROS Statement are negative. Past Medical History Past Medical History: Asthma, Diabetes Mellitus, Hypertension, Osteoarthritis (OA) Additional Past Medical History / Comment(s): arthritis. History of Any Multi-Drug Resistant Organisms: None Reported Past Surgical History: Tubal Ligation Additional Past Surgical History / Comment(s): wrist surgery Past Anesthesia/Blood Transfusion Reactions: No Reported Reaction Past Psychological History: No Psychological Hx Reported Smoking Status: Never smoker Past Alcohol Use History: None Reported Past Drug Use History: None Reported - Past Family History Father Family Medical History: Cancer Mother Family Medical History: Congestive Heart Failure (CHF), Hypertension General Exam Limitations: no limitations General appearance: alert, in no apparent distress Head exam: Present: atraumatic, normocephalic, normal inspection Eye exam: Present: normal appearance, PERRL, EOMI Pupils: Present: normal accommodation ENT exam: Present: normal exam, normal oropharynx, mucous membranes moist, TM's normal bilaterally Neck exam: Present: normal inspection, full ROM Respiratory exam: Present: normal lung sounds bilaterally. Absent: respiratory distress, rales Cardiovascular Exam: Present: regular rate, normal rhythm, normal heart sounds GI/Abdominal exam: Present: soft, tenderness (Positive McBurney point tetanus. Negative Ross negative obturator negative psoas.). Absent: distended, guarding, rebound, rigid Extremities exam: Present: normal inspection, full ROM Back exam: Present: normal inspection, full ROM, tenderness, CVA tenderness (R) Neurological exam: Present: alert, oriented X3 Psychiatric exam: Present: normal affect, normal mood Skin exam: Present: warm, dry, intact, normal color Course Vital Signs 11/01/19 11/01/19 11/01/19 15:44 17:02 18:23 Temperature 98.0 F Pulse Rate 116 H 98 99 Respiratory 20 18 18 Rate Blood Pressure 100/67 99/56 103/61 O2 Sat by Pulse 96 99 100 Oximetry Medical Decision Making - Lab Data Result diagrams: 11/01/19 16:10 11/01/19 16:10 Lab Results 11/01/19 11/01/19 11/01/19 Range/Units 16:10 16:10 16:10 WBC 10.9 H (3.8-10.6) k/uL RBC 3.76 L (3.80-5.40) m/uL Hgb 11.3 L (11.4-16.0) gm/dL Hct 35.4 (34.0-46.0) % MCV 94.0 (80.0-100.0) fL MCH 29.9 (25.0-35.0) pg MCHC 31.8 (31.0-37.0) g/dL RDW 16.7 H (11.5-15.5) % Plt Count 438 (150-450) k/uL Neutrophils % 59 % Lymphocytes % 29 % Monocytes % 7 % Eosinophils % 2 % Basophils % 1 % Neutrophils # 6.5 (1.3-7.7) k/uL Lymphocytes # 3.1 (1.0-4.8) k/uL Monocytes # 0.8 (0-1.0) k/uL Eosinophils # 0.2 (0-0.7) k/uL Basophils # 0.1 (0-0.2) k/uL Anisocytosis Slight Sodium 135 L (137-145) mmol/L Potassium 5.2 H (3.5-5.1) mmol/L Chloride 99 (98-107) mmol/L Carbon Dioxide 24 (22-30) mmol/L Anion Gap 12 mmol/L BUN 26 H (7-17) mg/dL Creatinine 0.85 (0.52-1.04) mg/dL Est GFR (CKD-EPI)AfAm 84 (>60 ml/min/1.73 sqM) Est GFR (CKD-EPI)NonAf 73 (>60 ml/min/1.73 sqM) Glucose 120 H (74-99) mg/dL Calcium 9.6 (8.4-10.2) mg/dL Total Bilirubin 0.5 (0.2-1.3) mg/dL AST 23 (14-36) U/L ALT 13 (4-34) U/L Alkaline Phosphatase 66 (38-126) U/L Total Protein 6.8 (6.3-8.2) g/dL Albumin 3.8 (3.5-5.0) g/dL Amylase 73 (30-110) U/L Lipase 164 (23-300) U/L Urine Color Yellow Urine Appearance Clear (Clear) Urine pH 5.0 (5.0-8.0) Ur Specific [place] 1.023 (1.001-1.035) Urine Protein Trace H (Negative) Urine Glucose (UA) Negative (Negative) Urine Ketones Negative (Negative) Urine Blood Negative (Negative) Urine Nitrite Negative (Negative) Urine Bilirubin Negative (Negative) Urine Urobilinogen 2.0 (<2.0) mg/dL Ur Leukocyte Esterase Small H (Negative) Urine RBC <1 (0-5) /hpf Urine WBC 3 (0-5) /hpf Ur Squamous Epith Cells 1 (0-4) /hpf Urine Bacteria Rare H (None) /hpf Hyaline Casts 65 H (0-2) /lpf Urine Mucus Rare H (None) /hpf Disposition Clinical Impression: Abdominal pain Disposition: HOME SELF-CARE Condition: Stable Instructions (If sedation given, give patient instructions): Abdominal Pain (ED) Additional Instructions: Follow-up with your primary care. Increase your water intake. Return to emergency department if symptoms worsen. Is patient prescribed a controlled substance at d/c from ED?: No Referrals: Lidia Felipe MD [Primary Care Provider] - 1-2 days Time of Disposition: 18:42
[2019-11-01 16:36] LABS: Anisocytosis Slight; Basophils # (A) 0.1 k/uL (0-0.2); Basophils % (A) 1 %; Eosinophils # (A) 0.2 k/uL (0-0.7); Eosinophils % (A) 2 %; HCT 35.4 % (34.0-46.0); HGB 11.3 gm/dL (11.4-16.0); Lymphocytes # (A) 3.1 k/uL (1.0-4.8); Lymphocytes % (A) 29 %; MCH 29.9 pg (25.0-35.0); MCHC 31.8 g/dL (31.0-37.0); Mean Platelet Volume 7.4; Monocytes # (A) 0.8 k/uL (0-1.0); Monocytes % (A) 7 %; Neutrophils # (A) 6.5 k/uL (1.3-7.7); Neutrophils % (A) 59 %; Platelet Count 438 k/uL (150-450); RBC 3.76 m/uL (3.80-5.40); RDW 16.7 % (11.5-15.5); WBC 10.9 k/uL (3.8-10.6)
[2019-11-01 16:48] LABS: Albumin 3.8 g/dL (3.5-5.0); Calcium 9.6 mg/dL (8.4-10.2); Potassium 5.2 mmol/L (3.5-5.1); Total Bilirubin 0.5 mg/dL (0.2-1.3); Total Protein 6.8 g/dL (6.3-8.2)
[2019-11-01 17:03] VITALS: RESP 18
[2019-11-01 17:08] LABS: Appearance,Urine Clear (Clear); Bacteria,Urine Rare /hpf; Bilirubin,Urine Negative (Negative); Blood,Urine Negative (Negative); Color,Urine Yellow; Glucose,Urine (UA) Negative (Negative); Hyaline Casts,Urine 65 /lpf (0-2); Ketones,Urine Negative (Negative); Leukocyte Esterase,Urine Small (Negative); Mucus,Urine Rare /hpf; Nitrite,Urine Negative (Negative); Protein,Urine Trace (Negative); RBC,Urine <1 /hpf (0-5); Specific Gravity,Urine 1.023 (1.001-1.035); Squamous Epithelial Cell,Urine 1 /hpf (0-4); WBC,Urine 3 /hpf (0-5)
--- NOTE | 2019-11-01 18:27 | CT ---
EXAMINATION TYPE: CT abdomen pelvis w con DATE OF EXAM: 11/01/2019 COMPARISON: None HISTORY: Right lower quadrant pain. CT DLP: 1559.6 mGycm Automated exposure control for dose reduction was used. TECHNIQUE: Helical acquisition of images was performed from the lung bases through the pelvis. CONTRAST: Performed without Oral Contrast and with IV Contrast, patient injected with 100 mL of Isovue 300. FINDINGS: LUNG BASES: No significant abnormality is appreciated. LIVER/GB: No significant abnormality is appreciated. PANCREAS: No significant abnormality is seen. SPLEEN: No significant abnormality is seen. ADRENALS: No significant abnormality is seen. KIDNEYS: No significant abnormality is seen. FREE AIR: No free air is visualized. RETROPERITONEAL ADENOPATHY: None visualized REPRODUCTIVE ORGANS: No significant abnormality is seen URINARY BLADDER: No significant abnormality is seen. PELVIC ADENOPATHY: None visualized. OSSEOUS STRUCTURES: No significant abnormality is seen. BOWEL: No significant abnormality is seen. Appendix is negative. OTHER: None IMPRESSION: NO ACUTE PROCESS.
[2019-11-01 19:07] VITALS: BP 110/68; PULSE 96
== END 2019-11-01 19:05 | disposition home or self-care (01) ==
LOC: EC 15:43
DX: R10.31 Right lower quadrant pain (principal); R11.2 Nausea with vomiting, unspecified; J45.909 Unspecified asthma, uncomplicated; E11.9 Type 2 diabetes mellitus without complications; I10 Essential (primary) hypertension; M19.90 Unspecified osteoarthritis, unspecified site; Z79.51 Long term (current) use of inhaled steroids; Z79.84 Long term (current) use of oral hypoglycemic drugs; Z79.899 Other long term (current) drug therapy; Z79.1 Long term (current) use of non-steroidal anti-inflammatories (NSAID)
CPT/HCPCS: 36415; 93005; 80053; 82150; 83690; 85025; 81001; 74177; 99284; 96374; 96361; J2405; Q9967

== ENCOUNTER 2019-11-14 13:04 | Observation (INO) | payer MEDICARE, OTHER ==
[2019-11-14] MEDS ORDERED: SODIUM CHLORIDE 0.9% 1,000 ML IV STA (13:31)
--- NOTE | 2019-11-14 13:35 | ED ---
Arrhythmia/Palpitations HPI - General Chief Complaint: Arrhythmia/Palpitations Stated Complaint: Fast Heart Rate Time Seen by Provider: 11/14/19 13:12 Source: patient Mode of arrival: wheelchair Limitations: no limitations - History of Present Illness Initial Comments: The patient is a 64-year-old female past medical history of rheumatoid arthritis who presents to the emergency department from her infusion center. She presented today to get her third infarct or infusion. Last one was 2 months ago. States that when she arrived they took her vitals are heart rate was close to 150. She denies feeling symptomatic. No chest pain, shortness of breath or palpitations. They did proceed with her infusion. She experienced some hives and was given Benadryl and prednisone. Reports that prison through her procedure her hands became swollen. She denies a sensation that her airway is closing off. Throughout the infusion she began having episodes of lower blood pressure. Her heart rates did improve however remained as high as 120s. They did recommend that she come into the emergency room for evaluation. She denies any history of cardiac arrhythmias, coronary disease or thyroid issues. Patient denies any fevers or chills. No cough or hemoptysis. Does admit to lower extremity swelling. No back or flank pain. No issues with her bowel or bladder function. There are no other alleviating, precipitating or modifying factors - Related Data Home Medications Medication Instructions Recorded Confirmed metFORMIN HCL [Glucophage] 1,000 mg PO BID 07/14/16 11/14/19 Atorvastatin [Lipitor] 10 mg PO DAILY 07/30/19 11/14/19 Folic Acid 1 mg PO DAILY 07/30/19 11/14/19 Hydroxychloroquine Sulfate 200 mg PO DAILY 07/30/19 11/14/19 [Plaquenil] Naproxen Sodium [Aleve] 220 mg PO DAILY PRN 07/30/19 11/14/19 Acetaminophen [Tylenol] 500 mg PO Q4-6H PRN 11/14/19 11/14/19 Furosemide [Lasix] 20 mg PO DAILY 11/14/19 11/14/19 INSULIN ASPART (NovoLOG) [NovoLOG 8 unit SQ TID 11/14/19 11/14/19 (formulary)] Latanoprost/Pf [Latanoprost 0.005% 1 drop BOTH EYES HS 11/14/19 11/14/19 Eye Drop] Previous Rx's Medication Instructions Recorded Aspirin 81 mg PO DAILY #30 chewable 08/01/19 Insulin Glargine [Lantus] 30 unit SQ HS #1 pen 08/01/19 traMADol HCl [Ultram] 50 mg PO Q6H PRN #20 tab 08/21/19 Metoprolol Tartrate [Lopressor] 12.5 mg PO BID 30 Days #60 tab 11/15/19 Allergies Allergy/AdvReac Type Severity Reaction Status Date / Time No Known Allergies Allergy Verified 11/14/19 14:33 Review of Systems ROS Statement: Those systems with pertinent positive or pertinent negative responses have been documented in the HPI. ROS Other: All systems not noted in ROS Statement are negative. Past Medical History Past Medical History: Asthma, Diabetes Mellitus, Hypertension, Osteoarthritis (OA) Additional Past Medical History / Comment(s): arthritis. History of Any Multi-Drug Resistant Organisms: None Reported Past Surgical History: Tubal Ligation Additional Past Surgical History / Comment(s): wrist surgery Past Anesthesia/Blood Transfusion Reactions: No Reported Reaction Past Psychological History: No Psychological Hx Reported Smoking Status: Never smoker Past Alcohol Use History: None Reported Past Drug Use History: None Reported - Past Family History Father Family Medical History: Cancer Mother Family Medical History: Congestive Heart Failure (CHF), Hypertension General Exam Limitations: no limitations General appearance: alert, in no apparent distress Head exam: Present: atraumatic, normocephalic, normal inspection Eye exam: Present: normal appearance, PERRL, EOMI. Absent: scleral icterus, conjunctival injection, periorbital swelling ENT exam: Present: normal exam, mucous membranes moist Neck exam: Present: normal inspection. Absent: tenderness, meningismus, lymphadenopathy Respiratory exam: Present: normal lung sounds bilaterally. Absent: respiratory distress, wheezes, rales, rhonchi, stridor Cardiovascular Exam: Present: normal rhythm, tachycardia, normal heart sounds. Absent: systolic murmur, diastolic murmur, rubs, gallop, clicks GI/Abdominal exam: Present: soft, normal bowel sounds. Absent: distended, tenderness, guarding, rebound, rigid Extremities exam: Present: full ROM, normal capillary refill, other (swollen bilateral hands. NO erythema. Compartments are soft). Absent: tenderness, pedal edema, joint swelling, calf tenderness Back exam: Present: normal inspection Neurological exam: Present: alert, oriented X3, CN II-XII intact Psychiatric exam: Present: normal affect, normal mood Skin exam: Present: warm, dry, intact, normal color. Absent: rash Course Vital Signs 11/14/19 11/14/19 11/14/19 13:11 14:36 16:06 Temperature 97.9 F Pulse Rate 126 H 108 H 112 H Respiratory 18 16 16 Rate Blood Pressure 103/66 103/71 108/79 O2 Sat by Pulse 96 96 99 Oximetry 11/14/19 16:49 Temperature Pulse Rate 108 H Respiratory 16 Rate Blood Pressure 109/86 O2 Sat by Pulse 99 Oximetry EKG Findings - EKG Comments: EKG Findings:: EKG demonstrates a sinus tachycardia with a ventricular rate of 121. MT interval 150. QRS 86. QTC of 440. Peak T waves in V2 through V4. No acute ST segment elevations or depressions concerning for ischemic changes. Medical Decision Making - Medical Decision Making Upon arrival patient placed into room 6. A history of physical exam was perfo rmed. 12-lead EKG demonstrates a sinus tachycardia. Patient given a liter of normal saline. Laboratories is were conducted. White blood cell count is 10.9. Hemoglobin 10. D-dimer elevated at 6.2. Sodium 132. Potassium 5.3. Glucose 74. TSH 5.3 with a free T4 1 0.96. Urinalysis shows large leukocyte esterase with 6 white blood cells and rare bacteria. Patient has no symptoms of acute urinary tract infection. Chest x-ray originally performed which demonstrates basilar atelectasis. I did perform a CT of the patient's chest which demonstrates no evidence of pulmonary embolism. Patient reevaluated. Heart rate improved however still remains in the 110s. Because this I recommended h ospital admission for which patient did agree. Patient will be admitted to [facility]. I discussed the case with Dr. Iverson accept admission for the patient. I placed cardiology on consult. We will repeat the patient's labs to monitor electrolytes. The patient was in agreement with this and she was transferred to the floor in stable condition - Lab Data Result diagrams: 11/14/19 13:26 11/15/19 02:02 Lab Results 11/14/19 11/14/19 11/14/19 Range/Units 13:26 13:26 13:26 WBC 10.9 H (3.8-10.6) k/uL RBC 3.45 L (3.80-5.40) m/uL Hgb 10.0 L (11.4-16.0) gm/dL Hct 31.6 L (34.0-46.0) % MCV 91.6 (80.0-100.0) fL MCH 29.0 (25.0-35.0) pg MCHC 31.6 (31.0-37.0) g/dL RDW 16.4 H (11.5-15.5) % Plt Count 580 H (150-450) k/uL Neutrophils % 87 % Lymphocytes % 5 % Monocytes % 6 % Eosinophils % 0 % Basophils % 0 % Neutrophils # 9.5 H (1.3-7.7) k/uL Lymphocytes # 0.5 L (1.0-4.8) k/uL Monocytes # 0.7 (0-1.0) k/uL Eosinophils # 0.0 (0-0.7) k/uL Basophils # 0.0 (0-0.2) k/uL Anisocytosis Slight PT 10.6 (9.0-12.0) sec INR 1.0 (<1.2) APTT 26.0 (22.0-30.0) sec D-Dimer 6.29 H (<0.60) mg/L FEU Sodium 132 L (137-145) mmol/L Potassium 5.3 H (3.5-5.1) mmol/L Chloride 97 L (98-107) mmol/L Carbon Dioxide 22 (22-30) mmol/L Anion Gap 13 mmol/L BUN 25 H (7-17) mg/dL Creatinine 0.85 (0.52-1.04) mg/dL Est GFR (CKD-EPI)AfAm 84 (>60 ml/min/1.73 sqM) Est GFR (CKD-EPI)NonAf 72 (>60 ml/min/1.73 sqM) Glucose 74 (74-99) mg/dL Calcium 9.1 (8.4-10.2) mg/dL Magnesium 1.9 (1.6-2.3) mg/dL Total Bilirubin 0.4 (0.2-1.3) mg/dL AST 21 (14-36) U/L ALT 10 (4-34) U/L Alkaline Phosphatase 78 (38-126) U/L Creatine Kinase 42 (30-135) U/L Troponin I (0.000-0.034) ng/mL Total Protein 6.4 (6.3-8.2) g/dL Albumin 2.9 L (3.5-5.0) g/dL TSH 5.370 H (0.465-4.680) mIU/L Free T4 1.96 (0.78-2.19) ng/dL Urine Color Urine Appearance (Clear) Urine pH (5.0-8.0) Ur Specific [place] (1.001-1.035) Urine Protein (Negative) Urine Glucose (UA) (Negative) Urine Ketones (Negative) Urine Blood (Negative) Urine Nitrite (Negative) Urine Bilirubin (Negative) Urine Urobilinogen (<2.0) mg/dL Ur Leukocyte Esterase (Negative) Urine RBC (0-5) /hpf Urine WBC (0-5) /hpf Ur Squamous Epith Cells (0-4) /hpf Urine Bacteria (None) /hpf Urine Mucus (None) /hpf 11/14/19 11/14/19 Range/Units 13:26 16:00 WBC (3.8-10.6) k/uL RBC (3.80-5.40) m/uL Hgb (11.4-16.0) gm/dL Hct (34.0-46.0) % MCV (80.0-100.0) fL MCH (25.0-35.0) pg MCHC (31.0-37.0) g/dL RDW (11.5-15.5) % Plt Count (150-450) k/uL Neutrophils % % Lymphocytes % % Monocytes % % Eosinophils % % Basophils % % Neutrophils # (1.3-7.7) k/uL Lymphocytes # (1.0-4.8) k/uL Monocytes # (0-1.0) k/uL Eosinophils # (0-0.7) k/uL Basophils # (0-0.2) k/uL Anisocytosis PT (9.0-12.0) sec INR (<1.2) APTT (22.0-30.0) sec D-Dimer (<0.60) mg/L FEU Sodium (137-145) mmol/L Potassium (3.5-5.1) mmol/L Chloride (98-107) mmol/L Carbon Dioxide (22-30) mmol/L Anion Gap mmol/L BUN (7-17) mg/dL Creatinine (0.52-1.04) mg/dL Est GFR (CKD-EPI)AfAm (>60 ml/min/1.73 sqM) Est GFR (CKD-EPI)NonAf (>60 ml/min/1.73 sqM) Glucose (74-99) mg/dL Calcium (8.4-10.2) mg/dL Magnesium (1.6-2.3) mg/dL Total Bilirubin (0.2-1.3) mg/dL AST (14-36) U/L ALT (4-34) U/L Alkaline Phosphatase (38-126) U/L Creatine Kinase (30-135) U/L Troponin I 0.014 (0.000-0.034) ng/mL Total Protein (6.3-8.2) g/dL Albumin (3.5-5.0) g/dL TSH (0.465-4.680) mIU/L Free T4 (0.78-2.19) ng/dL Urine Color Light Yellow Urine Appearance Clear (Clear) Urine pH 5.5 (5.0-8.0) Ur Specific [place] 1.015 (1.001-1.035) Urine Protein Negative (Negative) Urine Glucose (UA) Negative (Negative) Urine Ketones Negative (Negative) Urine Blood Negative (Negative) Urine Nitrite Negative (Negative) Urine Bilirubin Negative (Negative) Urine Urobilinogen <2.0 (<2.0) mg/dL Ur Leukocyte Esterase Large H (Negative) Urine RBC 1 (0-5) /hpf Urine WBC 6 H (0-5) /hpf Ur Squamous Epith Cells 3 (0-4) /hpf Urine Bacteria Rare H (None) /hpf Urine Mucus Rare H (None) /hpf Disposition Clinical Impression: Dehydration, Hypoglycemia, Hyperkalemia, Hyponatremia Disposition: ADMITTED IP TO THIS [facility] Condition: Stable Is patient prescribed a controlled substance at d/c from ED?: No Decision to Admit Reason: Admit from EC Decision Date: 11/14/19 Decision Time: 16:04
[2019-11-14 13:52] LABS: Anisocytosis Slight; Basophils % (A) 0 %; Eosinophils % (A) 0 %; HCT 31.6 % (34.0-46.0); Lymphocytes # (A) 0.5 k/uL (1.0-4.8); Lymphocytes % (A) 5 %; MCHC 31.6 g/dL (31.0-37.0); MCV 91.6 fL (80.0-100.0); Monocytes # (A) 0.7 k/uL (0-1.0); Monocytes % (A) 6 %; Neutrophils # (A) 9.5 k/uL (1.3-7.7); Neutrophils % (A) 87 %; Platelet Count 580 k/uL (150-450); RBC 3.45 m/uL (3.80-5.40); RDW 16.4 % (11.5-15.5); WBC 10.9 k/uL (3.8-10.6)
--- NOTE | 2019-11-14 13:52 | XR ---
EXAMINATION TYPE: XR chest 2V DATE OF EXAM: 11/14/2019 COMPARISON: 07/29/2019 TECHNIQUE: PA and lateral views submitted. HISTORY: Dysrhythmia FINDINGS: The lungs are clear and there is no pneumothorax, pleural effusion, or focal pneumonia. Subsegmenta l changes at both lung bases. No overt failure. No pneumothorax. Arthropathy of the shoulders. Heart size normal. No overt failure. Hypertrophic and degenerative change of the spine. IMPRESSION: 1. Basilar atelectasis favored over pneumonia correlate clinically.
[2019-11-14 14:05] LABS: Albumin 2.9 g/dL (3.5-5.0); Calcium 9.1 mg/dL (8.4-10.2); Magnesium 1.9 mg/dL (1.6-2.3); Potassium 5.3 mmol/L (3.5-5.1); Total Bilirubin 0.4 mg/dL (0.2-1.3); Total Protein 6.4 g/dL (6.3-8.2)
[2019-11-14 14:22] LABS: Prothrombin Time 10.6 sec (9.0-12.0)
[2019-11-14 15:00] LABS: D-Dimer 6.29 mg/L FEU (<0.60)
[2019-11-14 15:33] LABS: T4, Free (Free Thyroxine) 1.96 ng/dL (0.78-2.19)
--- NOTE | 2019-11-14 15:44 | CT ---
EXAMINATION TYPE: CT chest angio for PE DATE OF EXAM: 11/14/2019 COMPARISON: Chest x-ray earlier today HISTORY: Tachycardia, elevated d-dimer. CT DLP: 595.4 mGycm. Automated Exposure Control for Dose Reduction was Utilized. CONTRAST: CTA scan of the thorax is performed with IV Contrast, patient injected with 100 mL of Isovue 370, pul monary embolism protocol. MIP Images are created on CT scanner and reviewed. FINDINGS: LUNGS: Mild to moderate left greater than right bibasilar linear atelectasis and/or scarring. No susp icious focal consolidation or groundglass opacity. No pleural effusion or pneumothorax seen. Some dep endent atelectasis also in the inferior bilateral lower lungs. No concerning masses. MEDIASTINUM: There is satisfactory enhancement of the pulmonary artery and its branches, there is no CT evidence for pulmonary embolism. There are no greater than 1 cm hilar or mediastinal lymph nodes. There are prominent but subcentimeter prevascular along with bilateral hilar lymph nodes. No cardi omegaly or pericardial effusion is seen. Satisfactory enhancement of the thoracic aorta without aneur ysm or dissection. OTHER: Moderate multilevel anterior and lateral spurring in the thoracic spine. IMPRESSION: No CT evidence for acute pulmonary embolism. No suspicious acute pulmonary process.
[2019-11-14] MEDS ORDERED: SODIUM CHLORIDE 0.9% 1,000 ML IV ONE (15:52)
[2019-11-14] MEDS ORDERED: NALOXONE 0.4 MG/ML 1 ML VIAL IV PRN (16:04)
[2019-11-14 16:08] LABS: Appearance,Urine Clear (Clear); Bacteria,Urine Rare /hpf; Bilirubin,Urine Negative (Negative); Blood,Urine Negative (Negative); Color,Urine Light Yellow; Glucose,Urine (UA) Negative (Negative); Ketones,Urine Negative (Negative); Leukocyte Esterase,Urine Large (Negative); Mucus,Urine Rare /hpf; Nitrite,Urine Negative (Negative); PH, Urine 5.5 (5.0-8.0); Protein,Urine Negative (Negative); RBC,Urine 1 /hpf (0-5); Specific Gravity,Urine 1.015 (1.001-1.035); Squamous Epithelial Cell,Urine 3 /hpf (0-4); Urobilinogen,Urine <2.0 mg/dL (<2.0); WBC,Urine 6 /hpf (0-5)
[2019-11-14] MEDS ORDERED: traMADol 50 MG TAB PO PRN (16:13)
--- NOTE | 2019-11-14 16:20 | P.HPIM ---
History of Present Illness patient is a pleasant 59-year-old female with history of rheumatoid arthritis was sent in here because a of tachycardia and patient is admitted being admitted for uncontrolled tachycardia heart rate continued to be high in low 100s to 120s. Patient the was an infusion center earlier today receiving methotrexate infusion for rheumatoid arthritis and the patient's started feeling short of breath heart rate went up felt like her throat throat is closing patient was given Benadryl and prednisone felt better infusion was stopped but her heart rate remained high. Patient was subsequently sent here patient underwent extensive workup in ER including CT angios the chest which did not show any pulmonary embolism patient was given IV fluids about couple liters in spite of which Heart rate didn't come down patient had a high TSH but normal [id number] patient doesn't have any signs or symptoms of sepsis at this time20 years mildly abnormal but asymptomatic patient is a symptomatically from tachycardia Review of Systems REVIEW OF SYSTEMS: CONSTITUTIONAL: No fever, no malaise, no fatigue. HEENT: No recent visual problems or hearing problems. Denied any sore throat. CARDIOVASCULAR: No chest pain, orthopnea, PND, no palpitations, no syncope. PULMONARY: No shortness of breath, no cough, no hemoptysis. GASTROINTESTINAL: No diarrhea, no nausea, no vomiting, no abdominal pain. NEUROLOGICAL: No headaches, no weakness, no numbness. HEMATOLOGICAL: Denies any bleeding or petechiae. GENITOURINARY: Denies any burning micturition, frequency, or urgency. MUSCULOSKELETAL/RHEUMATOLOGICAL: Denies any joint pain, swelling, or any muscle pain. ENDOCRINE: Denies any polyuria or polydipsia. The rest of the 14-point review of systems is negative. Past Medical History Past Medical History: Asthma, Diabetes Mellitus, Hypertension, Osteoarthritis (OA) Additional Past Medical History / Comment(s): arthritis. History of Any Multi-Drug Resistant Organisms: None Reported Past Surgical History: Tubal Ligation Additional Past Surgical History / Comment(s): wrist surgery Past Anesthesia/Blood Transfusion Reactions: No Reported Reaction Past Psychological History: No Psychological Hx Reported Smoking Status: Never smoker Past Alcohol Use History: None Reported Past Drug Use History: None Reported - Past Family History Father Family Medical History: Cancer Mother Family Medical History: Congestive Heart Failure (CHF), Hypertension Medications and Allergies Home Medications Medication Instructions Recorded Confirmed Type Lisinopril [Zestril] 10 mg PO DAILY 07/14/16 11/14/19 History metFORMIN HCL [Glucophage] 1,000 mg PO BID 07/14/16 11/14/19 History Atorvastatin [Lipitor] 10 mg PO DAILY 07/30/19 11/14/19 History Folic Acid 1 mg PO DAILY 07/30/19 11/14/19 History Hydroxychloroquine Sulfate 200 mg PO DAILY 07/30/19 11/14/19 History [Plaquenil] Naproxen Sodium [Aleve] 220 mg PO DAILY PRN 07/30/19 11/14/19 History Aspirin 81 mg PO DAILY #30 chewable 08/01/19 11/14/19 Rx Insulin Glargine [Lantus] 30 unit SQ HS #1 pen 08/01/19 11/14/19 Rx traMADol HCl [Ultram] 50 mg PO Q6H PRN #20 tab 08/21/19 11/14/19 Rx Acetaminophen [Tylenol] 500 mg PO Q4-6H PRN 11/14/19 11/14/19 History Furosemide [Lasix] 20 mg PO DAILY 11/14/19 11/14/19 History INSULIN ASPART (NovoLOG) [NovoLOG 8 unit SQ TID 11/14/19 11/14/19 History (formulary)] Latanoprost/Pf [Latanoprost 0.005% 1 drop BOTH EYES HS 11/14/19 11/14/19 History Eye Drop] Allergies Allergy/AdvReac Type Severity Reaction Status Date / Time No Known Allergies Allergy Verified 11/14/19 14:33 Physical Exam Vitals: Vital Signs Temp Pulse Resp BP Pulse Ox 11/14/19 16:06 112 H 16 108/79 99 11/14/19 14:36 108 H 16 103/71 96 11/14/19 13:11 97.9 F 126 H 18 103/66 96 Intake and Output 11/14/19 11/14/19 11/14/19 06:59 14:59 22:59 Other: Weight 89.358 kg PHYSICAL EXAMINATION: GENERAL: The patient is alert and oriented x3, not in any acute distress. Well developed, well nourished. HEENT: Pupils are round and equally reacting to light. EOMI. No scleral icterus. No conjunctival pallor. Normocephalic, atraumatic. No pharyngeal erythema. No thyromegaly. CARDIOVASCULAR: S1 and S2 present. No murmurs, rubs, or gallops.regular rhythm sinus tachycardia PULMONARY: Chest is clear to auscultation, no wheezing or crackles. ABDOMEN: Soft, nontender, nondistended, normoactive bowel sounds. No palpable organomegaly. MUSCULOSKELETAL: No joint swelling or deformity. EXTREMITIES: No cyanosis, clubbing, or pedal edema. NEUROLOGICAL: Gross neurological examination did not reveal any focal deficits. SKIN: No rashes. Results CBC & Chem 7: 11/14/19 13:26 11/14/19 13:26 Labs: Abnormal Lab Results - Last 24 Hours (Table) 11/14/19 11/14/19 11/14/19 Range/Units 13:26 13: 13:26 WBC 10.9 H (3.8-10.6) k/uL RBC 3.45 L (3.80-5.40) m/uL Hgb 10.0 L (11.4-16.0) gm/dL Hct 31.6 L (34.0-46.0) % RDW 16.4 H (11.5-15.5) % Plt Count 580 H (150-450) k/uL Neutrophils # 9.5 H (1.3-7.7) k/uL Lymphocytes # 0.5 L (1.0-4.8) k/uL D-Dimer 6.29 H (<0.60) mg/L FEU Sodium 132 L (137-145) mmol/L Potassium 5.3 H (3.5-5.1) mmol/L Chloride 97 L (98-107) mmol/L BUN 25 H (7-17) mg/dL Albumin 2.9 L (3.5-5.0) g/dL TSH 5.370 H (0.465-4.680) mIU/L Ur Leukocyte Esterase (Negative) Urine WBC (0-5) /hpf Urine Bacteria (None) /hpf Urine Mucus (None) /hpf 11/14/19 Range/Units 16:00 WBC (3.8-10.6) k/uL RBC (3.80-5.40) m/uL Hgb (11.4-16.0) gm/dL Hct (34.0-46.0) % RDW (11.5-15.5) % Plt Count (150-450) k/uL Neutrophils # (1.3-7.7) k/uL Lymphocytes # (1.0-4.8) k/uL D-Dimer (<0.60) mg/L FEU Sodium (137-145) mmol/L Potassium (3.5-5.1) mmol/L Chloride (98-107) mmol/L BUN (7-17) mg/dL Albumin (3.5-5.0) g/dL TSH (0.465-4.680) mIU/L Ur Leukocyte Esterase Large H (Negative) Urine WBC 6 H (0-5) /hpf Urine Bacteria Rare H (None) /hpf Urine Mucus Rare H (None) /hpf Assessment and Plan Plan: -sinus tachycardia probably secondary to hypovolemia patient will be started on IV fluids admitted with contribution of Benadryl and Ativan and it's anticholinergic affect contributing to tachycardia.patient will be monitored overnight although workup is done patient will be continued on IV fluids for heart rate improves will be discharged tomorrow -Mild hyperkalemia: Secondary to lisinopril patient terminated low potassium diet upon discharge are cut down the lisinopril patient will benefit from lisinopril because of her a diabetes mellitus although patient doesn't have any proteinuria. -type 2 diabetes mellitus: Hold off on metformin temporarily patient will be started on sliding scale insulin -Hypertension hold off on lisinopril because of hyperkalemia and hypotension today -Mild possible hypovolemic hyponatremia expected to improve with IV fluids repeat basic metabolic profile tomorrow -Osteoarthritis and rheumatoid arthritis follow-up as an outpatient -DVT prophylaxis early ambulation
[2019-11-14] MEDS: SODIUM CHLORIDE 0.9% 1,000 ML IV SCH (16:22)
[2019-11-14] MEDS ORDERED: KETOROLAC 30 MG/ML 1 ML VIAL IVP PRN (16:33)
[2019-11-14 17:10] LABS: Glucose,Whole Blood 105 mg/dL (75-99)
[2019-11-14] MEDS: INSULIN ASPART (NovoLOG) 100 UNIT/ML VIAL SQ SCH ×3 (17:23→20:27)
[2019-11-14 20:03] LABS: Glucose,Whole Blood 278 mg/dL (75-99)
[2019-11-14] MEDS ORDERED: LATANOPROST 0.005% OPHTH DROPS 2.5 ML BTL BOTH EYES SCH (21:00)
[2019-11-14] MEDS ORDERED: INSULIN DETEMIR (LEVEMIR) 100 UNIT/ML SYR SQ SCH (21:00)
[2019-11-15 02:45] LABS: Calcium 8.3 mg/dL (8.4-10.2); Potassium 5.4 mmol/L (3.5-5.1)
[2019-11-15] MEDS: SODIUM CHLORIDE 0.9% 1,000 ML IV SCH (03:09)
[2019-11-15] MEDS ORDERED: SODIUM POLYSTYRENE SULFONATE 15 GM/60 ML BOTTLE PO STA (03:46)
[2019-11-15 06:09] LABS: Glucose,Whole Blood 277 mg/dL (75-99)
[2019-11-15 08:10] VITALS: BP 105/69; PULSE 108; RESP 16; TEMP 97.6
[2019-11-15] MEDS ORDERED: ASPIRIN 81 MG PO SCH (09:00)
[2019-11-15] MEDS ORDERED: PANTOPRAZOLE 40 MG/10 ML VIAL IVP SCH (09:00)
[2019-11-15] MEDS ORDERED: METOPROLOL TARTRATE 12.5 MG TAB PO SCH (09:00)
[2019-11-15] MEDS ORDERED: HYDROXYCHLOROQUINE SULFATE 200 MG TAB PO SCH (09:00)
[2019-11-15] MEDS ORDERED: ATORVASTATIN 10 MG TAB PO SCH (09:00)
[2019-11-15 09:20] LABS: Cholesterol 108 mg/dL (<200); HDL Cholesterol 29 mg/dL (40-60); LDL Cholesterol,Calculated 64 mg/dL (0-99); Triglycerides 75 mg/dL (<150)
[2019-11-15] MEDS: INSULIN ASPART (NovoLOG) 100 UNIT/ML VIAL SQ SCH ×3 (09:33→12:13)
--- NOTE | 2019-11-15 10:53 | P.CRDCN ---
History of Present Illness History of present illness: HISTORY OF PRESENTING ILLNESS This is a pleasant 64-year-old female past medical history significant for hypertension, dyslipidemia, rheumatoid arthritis and diabetes mellitus. 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 We have been asked to see in consultation for tachycardia. She presented to the infusion center yesterday for regularly scheduled methotrexate infusion. She started these infusions in June. According to the patient on arrival to the infusion center she was told her heart rate was fast. She had no symptoms of palpitations, dizziness, shortness of breath or chest pain. The proceeded with her infusion as scheduled. During the infusion she developed what she describes as an ALLERGIC reaction with a rash and itching. She was given Benadryl and Solu-Medrol. On arrival to the emergency department an EKG was obtained revealing sinus tachycardia with a heart rate of 121. She continues to be tachycardic on telemetry. Tachycardia is sinus tachycardia with no evidence of an acute arrhythmia. Blood pressures have been controlled. This morning was 105/69. Laboratory data reviewed, WBC 10.9, hemoglobin 10.0, platelets 580, d-dimer 6.29, sodium 132, potassium on admission 5. 3 repeat today after Kayexalate 5.4, creatinine 0.89, cardiac enzymes negative 3, LDL 64, TSH 5.37 with a free T4 of 1.96. Current daily cardiac medications include atorvastatin 10 mg daily, aspirin 81 mg daily, lisinopril 10 mg daily and Lasix 20 mg daily. CTA of the chest is negative for pulmonary embolism. Most recent echocardiogram obtained July 2019 revealed preserved LV systolic function with ejection fraction 55-60%. REVIEW OF SYSTEMS At the time of my exam: CONSTITUTIONAL: Denies fever or chills. CARDIOVASCULAR: Denies chest pain, shortness of breath, orthopnea, PND or palpitations. RESPIRATORY: Denies cough. GASTROINTESTINAL: Denies abdominal pain, diarrhea, constipation, nausea or vomiting. MUSCULOSKELETAL: Denies myalgias. NEUROLOGIC: Denies numbness, tingling or weakness. ENDOCRINE: Denies fatigue, weight change, polydipsia or polyurina. GENITOURINARY: Denies burning, hematuria or urgency with micturation. HEMATOLOGIC: Denies history of anemia or bleeding. PHYSICAL EXAMINATION CONSTITUTIONAL: No apparent distress. HEENT: Head is normocephalic. Pupils are equal, round. Sclerae anicteric. Mucous membranes of the mouth are moist. No JVD. No carotid bruit. CHEST EXAMINATION: Lungs are clear to auscultation. No chest wall tenderness is noted on palpation or with deep breathing. HEART EXAMINATION: Tachycardic. Regular rate and rhythm. S1, S2 heard. No murmurs, gallops or rub. ABDOMEN: Soft, nontender. Positive bowel sounds. EXTREMITIES: 2+ peripheral pulses, no lower extremity edema and no calf tenderness. NEUROLOGIC EXAMINATION: Patient is awake, alert and oriented x3. ASSESSMENT Sinus tachycardia in the setting of an ALLERGIC reaction Hyperkalemia Hypertension Dyslipidemia Diabetes mellitus Rheumatoid arthritis PLAN Hold lisinopril secondary to hyperkalemia, blood pressure is controlled. No evidence of an acute arrhythmia on telemetry tracings. Tachycardia could be secondary to allergic reaction and steroid administration. Thank you kindly for this consultation. Nurse Practitioner note has been reviewed, I agree with a documented findings and plan of care. Patient was seen and examined. Past Medical History Past Medical History: Asthma, Diabetes Mellitus, Hypertension, Osteoarthritis (OA) Additional Past Medical History / Comment(s): arthritis. History of Any Multi-Drug Resistant Organisms: None Reported Past Surgical History: Tubal Ligation Additional Past Surgical History / Comment(s): wrist surgery Past Anesthesia/Blood Transfusion Reactions: No Reported Reaction Past Psychological History: No Psychological Hx Reported Smoking Status: Never smoker Past Alcohol Use History: None Reported Past Drug Use History: None Reported - Past Family History Father Family Medical History: Cancer Mother Family Medical History: Congestive Heart Failure (CHF), Hypertension Medications and Allergies Home Medications Medication Instructions Recorded Confirmed Type Lisinopril [Zestril] 10 mg PO DAILY 07/14/16 11/14/19 History metFORMIN HCL [Glucophage] 1,000 mg PO BID 07/14/16 11/14/19 History Atorvastatin [Lipitor] 10 mg PO DAILY 07/30/19 11/14/19 History Folic Acid 1 mg PO DAILY 07/30/19 11/14/19 History Hydroxychloroquine Sulfate 200 mg PO DAILY 07/30/19 11/14/19 History [Plaquenil] Naproxen Sodium [Aleve] 220 mg PO DAILY PRN 07/30/19 11/14/19 History Aspirin 81 mg PO DAILY #30 chewable 08/01/19 11/14/19 Rx Insulin Glargine [Lantus] 30 unit SQ HS #1 pen 08/01/19 11/14/19 Rx traMADol HCl [Ultram] 50 mg PO Q6H PRN #20 tab 08/21/19 11/14/19 Rx Acetaminophen [Tylenol] 500 mg PO Q4-6H PRN 11/14/19 11/14/19 History Furosemide [Lasix] 20 mg PO DAILY 11/14/19 11/14/19 History INSULIN ASPART (NovoLOG) [NovoLOG 8 unit SQ TID 11/14/19 11/14/19 History (formulary)] Latanoprost/Pf [Latanoprost 0.005% 1 drop BOTH EYES HS 11/14/19 11/14/19 History Eye Drop] Allergies Allergy/AdvReac Type Severity Reaction Status Date / Time No Known Allergies Allergy Verified 11/14/19 14:33 Physical Exam Vitals: Vital Signs Temp Pulse Pulse Resp BP BP BP 11/15/19 08:09 97.6 F 108 H 16 105/69 11/15/19 03:30 107 H 19 11/15/19 03:10 98.3 F 107 H 19 123/66 11/14/19 23:40 97.1 F L 109 H 16 106/62 11/14/19 23:15 106 H 14 11/14/19 19:45 115 H 14 11/14/19 19:44 98.0 F 115 H 14 109/64 11/14/19 18:50 116 H 16 11/14/19 17:08 97.5 F L 108 H 16 112/68 11/14/19 16:49 108 H 16 109/86 11/14/19 16:06 112 H 16 108/79 11/14/19 14:36 108 H 16 103/71 11/14/19 13:11 97.9 F 126 H 18 103/66 Pulse Ox 11/15/19 08:09 98 11/15/19 03:30 11/15/19 03:10 95 11/14/19 23:40 95 11/14/19 23:15 11/14/19 19:45 11/14/19 19:44 95 11/14/19 18:50 11/14/19 17:08 96 11/14/19 16:49 99 11/14/19 16:06 99 06/03/20 14:36 96 11/14/19 13:11 96 Intake and Output 11/14/19 11/15/19 11/15/19 22:59 06:59 14:59 Intake Total 480 Balance 480 Intake: Oral 480 Other: Voiding Method Toilet # Bowel Movements 1 Weight 89.358 kg Results 11/14/19 13:26 11/15/19 02:02 Cardiac Enzymes 11/14/19 11/14/19 11/14/19 Range/Units 13:26 13:26 20:03 AST 21 (14-36) U/L Troponin I 0.014 <0.012 (0.000-0.034) ng/mL 11/15/19 Range/Units 02:02 AST (14-36) U/L Troponin I <0.012 (0.000-0.034) ng/mL Coagulation 11/14/19 Range/Units 13:26 PT 10.6 (9.0-12.0) sec APTT 26.0 (22.0-30.0) sec Lipids 11/15/19 Range/Units 02:02 Triglycerides 75 (<150) mg/dL Cholesterol 108 (<200) mg/dL HDL Cholesterol 29 L (40-60) mg/dL CBC 11/14/19 Range/Units 13:26 WBC 10.9 H (3.8-10.6) k/uL RBC 3.45 L (3.80-5.40) m/uL Hgb 10.0 L (11.4-16.0) gm/dL Hct 31.6 L (34.0-46.0) % Plt Count 580 H (150-450) k/uL Comprehensive Metabolic Panel 11/14/19 11/15/19 Range/Units 13:26 02:02 Sodium 132 L 132 L (137-145) mmol/L Potassium 5.3 H 5.4 H (3.5-5.1) mmol/L Chloride 97 L 103 (98-107) mmol/L Carbon Dioxide 22 23 (22-30) mmol/L BUN 25 H 34 H (7-17) mg/dL Creatinine 0.85 0.89 (0.52-1.04) mg/dL Glucose 74 228 H (74-99) mg/dL Calcium 9.1 8.3 L (8.4-10.2) mg/dL AST 21 (14-36) U/L ALT 10 (4-34) U/L Alkaline Phosphatase 78 (38-126) U/L Total Protein 6.4 (6.3-8.2) g/dL Albumin 2.9 L (3.5-5.0) g/dL Current Medications Generic Name Dose Route Start Last Admin Trade Name Freq PRN Reason Stop Dose Admin Aspirin 81 mg 11/15/19 09:00 11/15/19 09:33 Aspirin PO 81 mg DAILY RAGHU Administration Atorvastatin Calcium 10 mg 11/15/19 09:00 11/15/19 09:32 Lipitor PO 10 mg DAILY RAGHU Administration Hydroxychloroquine Sulfate 200 mg 11/15/19 09:00 11/15/19 09:32 Plaquenil PO 200 mg DAILY RAGHU Administration Sodium Chloride 1,000 mls @ 100 mls/hr 11/14/19 16:15 11/15/19 03:09 Saline 0.9% IV 100 mls/hr .Q10H RAGHU Administration Insulin Aspart 8 unit 11/14/19 22:00 11/15/19 09:33 Novolog SQ 8 unit TID RAGHU Administration Insulin Aspart 0 unit 11/14/19 17:30 11/15/19 09:33 Novolog SQ 4 unit ACHS RAGHU Administration Protocol Insulin Detemir 30 unit 11/14/19 21:00 11/14/19 20:27 Levemir SQ 30 unit HS RAGHU Administration Ketorolac Tromethamine 15 mg 11/14/19 16:33 11/14/19 20:28 Toradol IVP 11/18/19 16:33 15 mg Q6HR PRN Administration Mild to Moderate Pain Latanoprost 1 drops 11/14/19 21:00 11/15/19 00:28 Xalatan 0.005% BOTH EYES Not Given HS [facility] Metoprolol Tartrate 12.5 mg 11/15/19 09:00 11/15/19 09:32 Lopressor PO 12.5 mg BID RAGHU Administration Naloxone HCl 0.2 mg 11/14/19 16:04 Narcan IV Q2M PRN Opioid Reversal Pantoprazole Sodium 40 mg 11/15/19 09:00 11/15/19 09:33 Protonix IVP 40 mg DAILY RAGHU Administration Tramadol HCl 50 mg 11/14/19 16:13 Ultram PO Q6H PRN Pain Intake and Output 11/14/19 11/15/19 11/15/19 22:59 06:59 14:59 Intake Total 480 Balance 480 Intake: Oral 480 Other: Voiding Method Toilet # Bowel Movements 1 Weight 89.358 kg 11/14/19 13:26 11/15/19 02:02
[2019-11-15 11:02] LABS: Glucose,Whole Blood 151 mg/dL (75-99)
--- NOTE | 2019-11-16 10:32 | ECHOF ---
Referral Reason:tachycardia MEASUREMENTS -------- HEIGHT: 160.0 cm WEIGHT: 89.4 kg BP: 105/69 RVIDd: 3.4 cm (< 3.3) IVSd: 1.2 cm (0.6 - 1.1) LVIDd: 4.5 cm (3.9 - 5.3) LVPWd: 1.2 cm (0.6 - 1.1) IVSs: 1.4 cm LVIDs: 3.4 cm LVPWs: 1.8 cm LAESV Index (A-L): 23.78 ml/m Ao Diam: 2.6 cm (2.0 - 3.7) AV Cusp: 1.9 cm (1.5 - 2.6) MV EXCURSION: 17.918 mm (> 18.000) MV EF SLOPE: 179 mm/s (70 - 150) EPSS: 0.8 cm RAP: 5.00 mmHg RVSP: 33.70 mmHg FINDINGS -------- Resting tachycardia (HR>100bpm). This was a technically adequate study. The left ventricular size is normal. There is mild concentric left ventricular hypertrophy. Overa ll left ventricular systolic function is mildly impaired with, an EF between 45 - 50 %. The right ventricle is mildly enlarged. Normal LA size by volume 22+/-6 ml/m2. The right atrial size is normal. Interatrial and interventricular septum intact. There is no evidence of aortic regurgitation. There is no evidence of aortic stenosis. Mild mitral regurgitation is present. Mild tricuspid regurgitation present. There is borderline pulmonary hypertension. The right ventr icular systolic pressure, as measured by Doppler, is 33.70mmHg. There is no pulmonic regurgitation present. The aortic root size is normal. Normal inferior vena cava with normal inspiratory collapse consistent with estimated right atrial pre ssure of 5 mmHg. There is no pericardial effusion. CONCLUSIONS -------- 1. Resting tachycardia (HR>100bpm). 2. This was a technically adequate study. 3. The left ventricular size is normal. 4. There is mild concentric left ventricular hypertrophy. 5. Overall left ventricular systolic function is mildly impaired with, an EF between 45 - 50 %. 6. The right ventricle is mildly enlarged. 7. Normal LA size by volume 22+/-6 ml/m2. 8. The right atrial size is normal. 9. Interatrial and interventricular septum intact. 10. There is no evidence of aortic regurgitation. 11. There is no evidence of aortic stenosis. 12. Mild mitral regurgitation is present. 13. Mild tricuspid regurgitation present. 14. There is borderline pulmonary hypertension. 15. The right ventricular systolic pressure, as measured by Doppler, is 33.70mmHg. 16. There is no pulmonic regurgitation present. 17. The aortic root size is normal. 18. Normal inferior vena cava with normal inspiratory collapse consistent with estimated right atrial pressure of 5 mmHg. 19. There is no pericardial effusion. ASSISTANT TECHNICIAN: Halley Viera RDCS
--- NOTE | 2019-11-16 12:40 | P.DS ---
Providers Date of admission: 11/14/19 16:04 Expected date of discharge: 11/15/19 Attending physician: Nelson Iverson Primary care physician: Lidia Schwab [place] Hospital Course: Final diagnosis -sinus tachycardia probably secondary to hypovolemia -Mild hyperkalemia: Secondary to lisinopril -type 2 diabetes mellitus -Hypertension -Mild possible hypovolemic hyponatremia -Osteoarthritis and rheumatoid arthritis follow-up as an outpatient -DVT prophylaxis Discharge disposition Patient is being discharged in a stable condition with guarded prognosis to home. Patient will follow-up with Dr. Lidia schwab upon discharge. Patient instructed to follow-up with cardiology Dr. Falcon in the outpatient setting. Patient may continue with methotrexate as previously ordered. Total time taken is 35 minutes. History of present illness This is a 64-year-old female who was recently admitted with tachycardia with possibility of methotrexate ALLERGIC reaction and was being closely monitored. Patient was seen and evaluated by cardiology recommending outpatient follow-up as she recently underwent an echo. Patient will be started on metoprolol 12.5 mg twice daily and will follow-up with her primary care provider along with cardiology. Patient may continue with methotrexate injections as she does not have an ALLERGY to this. Currently no reports of chest pain, palpitations, or shortness of breath. Patient is afebrile. No reports of nausea or vomiting and patient is tolerating diet. On exam vital signs are stable. Temp is 98.3F, pulse is 76, respirations are 17, blood pressure 111/71, oxygen saturation is 97% on room air. Cardio S1, S2 are present. Respiratory shows clear to auscultation. Abdomen is soft and nontender. Nervous system shows no focal deficits. Please refer to medication reconciliation sheet for a list of medications. Patient Condition at Discharge: Stable Plan - Discharge Summary New Discharge Prescriptions: New Metoprolol Tartrate [Lopressor] 12.5 mg PO BID 30 Days #60 tab Continue metFORMIN HCL [Glucophage] 1,000 mg PO BID Atorvastatin [Lipitor] 10 mg PO DAILY Naproxen Sodium [Aleve] 220 mg PO DAILY PRN PRN Reason: Pain Folic Acid 1 mg PO DAILY Hydroxychloroquine Sulfate [Plaquenil] 200 mg PO DAILY Aspirin 81 mg PO DAILY #30 chewable Insulin Glargine [Lantus] 30 unit SQ HS #1 pen traMADol HCl [Ultram] 50 mg PO Q6H PRN #20 tab PRN Reason: Pain Acetaminophen [Tylenol] 500 mg PO Q4-6H PRN PRN Reason: Pain Latanoprost/Pf [Latanoprost 0.005% Eye Drop] 1 drop BOTH EYES HS Furosemide [Lasix] 20 mg PO DAILY INSULIN ASPART (NovoLOG) [NovoLOG (formulary)] 8 unit SQ TID Discontinued Lisinopril [Zestril] 10 mg PO DAILY Discharge Medication List metFORMIN HCL [Glucophage] 1,000 mg PO BID 07/14/16 [History] Atorvastatin [Lipitor] 10 mg PO DAILY 07/30/19 [History] Folic Acid 1 mg PO DAILY 07/30/19 [History] Hydroxychloroquine Sulfate [Plaquenil] 200 mg PO DAILY 07/30/19 [History] Naproxen Sodium [Aleve] 220 mg PO DAILY PRN 07/30/19 [History] Aspirin 81 mg PO DAILY #30 chewable 08/01/19 [Rx] Insulin Glargine [Lantus] 30 unit SQ HS #1 pen 08/01/19 [Rx] traMADol HCl [Ultram] 50 mg PO Q6H PRN #20 tab 08/21/19 [Rx] Acetaminophen [Tylenol] 500 mg PO Q4-6H PRN 11/14/19 [History] Furosemide [Lasix] 20 mg PO DAILY 11/14/19 [History] INSULIN ASPART (NovoLOG) [NovoLOG (formulary)] 8 unit SQ TID 11/14/19 [History] Latanoprost/Pf [Latanoprost 0.005% Eye Drop] 1 drop BOTH EYES HS 11/14/19 [H istory] Metoprolol Tartrate [Lopressor] 12.5 mg PO BID 30 Days #60 tab 11/15/19 [Rx] Follow up Appointment(s)/Referral(s): Guero Falcon MD [STAFF PHYSICIAN] - 12/11/20 4:00 pm Lidia Schwab MD [Primary Care Provider] - 11/20/19 1:00 pm Ambulatory/Diagnostic Orders: Basic Metabolic Panel [LAB.AMB] Time Frame: 2 Days, Location: None Selected Activity/Diet/Wound Care/Special Instructions: Activity Limited until follow-up Continue current diet Follow-up with cardiology in the outpatient setting in 1-2 weeks Continue monitoring blood sugars before meals at bedtime and treat accordingly Keep A diary of blood sugar readings and bring with you to primary care follow- up Repeat labs in 2-3 days Discharge Disposition: HOME SELF-CARE
== END 2019-11-15 13:10 | disposition home or self-care (01) ==
LOC: EC 13:04 → 1SOBS 16:04
PROVIDERS: ADMIT Internal Medicine; ATTEND Internal Medicine
DX: R00.0 Tachycardia, unspecified (principal); E87.5 Hyperkalemia; M06.9 Rheumatoid arthritis, unspecified; E86.0 Dehydration; E86.1 Hypovolemia; E87.1 Hypo-osmolality and hyponatremia; M79.89 Other specified soft tissue disorders; R79.89 Other specified abnormal findings of blood chemistry; I95.9 Hypotension, unspecified; T46.4X5A Adverse effect of angiotensin-converting-enzyme inhibitors, initial encounter; E78.5 Hyperlipidemia, unspecified; J45.909 Unspecified asthma, uncomplicated; E11.649 Type 2 diabetes mellitus with hypoglycemia without coma; I10 Essential (primary) hypertension; M19.90 Unspecified osteoarthritis, unspecified site; Z79.899 Other long term (current) drug therapy; Z79.4 Long term (current) use of insulin; Z79.1 Long term (current) use of non-steroidal anti-inflammatories (NSAID); Z03.818 Encounter for observation for suspected exposure to other biological agents ruled out; Z79.82 Long term (current) use of aspirin; Z79.891 Long term (current) use of opiate analgesic; Z82.49 Family history of ischemic heart disease and other diseases of the circulatory system; Z80.9 Family history of malignant neoplasm, unspecified
CPT/HCPCS: 96361 ×3; 96374; 96375; 99285; 36415; 93005; 93306; 85379; 84439; 80061; 80053; 80048; 84443; 82550; 83735; 84484 ×2; 85025; 85610; 85730; 81001; 71046; 71275; G0378 ×2; U0003; J1885; C9113; Q9967

== ENCOUNTER → 2020-07-01 | Outpatient (CLI) | payer MEDICARE, OTHER ==
--- NOTE | 2020-07-01 16:17 | BD ---
EXAMINATION TYPE: Axial Bone Density DATE OF EXAM: 07/01/2020 COMPARISON: 04/20/2017 CLINICAL HISTORY: MO5.79, E 11.9 Height: 62.7 IN Weight: 193 LBS FRAX RISK QUESTIONS: Rheumatoid Arthritis: YES RISK FACTORS HISTORY OF: Active: MODERATE Postmenopausal woman: AGE 54 MEDICATIONS: Additional Medications: NORCO, PLAQUENIL, TYLENOL, ASPIRIN, INSULIN, FOLIC ACID, LASIX, LATAPROST, ME TFORMIN, LIPITOR, METHOTREXATE, METOPROLOL EXAM MEASUREMENTS: Bone mineral densitometry was performed using the [employer] System. Bone mineral density as measured about the Lumbar spine is: ----- L1-L4(G/cm2): 1.434 T Score Values are as follows: ----- L2: 2.0 ----- L3: 3.1 ----- L4: 1.8 ----- L1-L4: 2.1 Bone mineral density has: Decreased -13.1% since study of: 04/20/2017 Bone mineral density about the R hip (g/cm2): 0.907 Bone mineral density about the L hip (g/cm2): 0.780 T Score values are as follows: -----R Neck: -0.9 -----L Neck: -1.9 -----R Total: -0.1 -----L Total: -0.6 Bone mineral density has: Decreased -11.1% since study of: 04/20/2017 IMPRESSION: Osteopenia (T Score between -2.5 and -1). There is slightly increased risk of fracture and the patient may be considered for treatment. Re-Screen 2-5 years. NOTE: T-SCORE=SD OF THE YOUNG ADULT MEAN.
== END | disposition home or self-care (01) ==
LOC: RADBDWWP 12:10
PROVIDERS: ATTEND Family Medicine
DX: M85.80 Other specified disorders of bone density and structure, unspecified site (principal); E11.9 Type 2 diabetes mellitus without complications; M05.79 Rheumatoid arthritis with rheumatoid factor of multiple sites without organ or systems involvement; M85.88 Other specified disorders of bone density and structure, other site; Z78.0 Asymptomatic menopausal state; M06.9 Rheumatoid arthritis, unspecified
CPT/HCPCS: 77080

== ENCOUNTER → 2020-08-07 | Outpatient (CLI) | payer MEDICARE, OTHER ==
--- NOTE | 2020-08-11 09:55 | MM ---
Reason for exam: screening (asymptomatic). Last mammogram was performed 2 years and 3 months ago. History: Patient is postmenopausal. Took hormonal contraceptives for 3 years. Physical Findings: A clinical breast exam by your physician is recommended on an annual basis and results should be correlated with mammographic findings. MG 3D Screening Mammo W/Cad Bilateral CC and MLO view(s) were taken. Prior study comparison: April 26, 2018, bilateral MG screening mammo w CAD. April 20, 2017, bilateral MG screening mammo w CAD. There are scattered fibroglandular densities. No significant changes when compared with prior studies. ASSESSMENT: Benign, BI-RAD 2 RECOMMENDATION: Routine screening mammogram of both breasts in 1 year.
== END | disposition home or self-care (01) ==
LOC: RADMAMWWP 15:34
PROVIDERS: ATTEND Family Medicine
DX: Z12.31 Encounter for screening mammogram for malignant neoplasm of breast (principal); Z78.0 Asymptomatic menopausal state
CPT/HCPCS: 77063; 77067

== ENCOUNTER 2021-04-02 14:15 | Emergency (ER) | payer MEDICARE, OTHER ==
[2021-04-02 14:26] LABS: Glucose,Whole Blood 219 mg/dL (75-99)
[2021-04-02] MEDS ORDERED: IPRATROPIUM-ALBUTEROL 3 ML NEB INHALATION STA (14:29)
--- NOTE | 2021-04-02 14:29 | ED ---
General Adult HPI - General Stated complaint: Low Blood Sugar Time Seen by Provider: 04/02/21 14:15 Source: patient, RN notes reviewed, old records reviewed - History of Present Illness Initial comments: This is a 65-year-old female presents emergency department she states she is a diabetic. Patient states this morning she took her insulin but did not eat because she had to do a fasting blood work today. Patient was found to have a sugar of 41 when EMS arrived they gave him oral glucose but had no effect eventually gave D50 IV and immediately woke the patient up to her baseline. Patient states she has not been sick recently patient denies any fever chills. Patient denies any cough per patient denies any underlying lung disease that she knows of. Patient's chest pain or palpitations. Patient denies any dysuria hem aturia urinary frequency. Patient denies abdominal pain patient denies nausea vomiting diarrhea. - Related Data Home Medications Medication Instructions Recorded Confirmed Folic Acid 1 mg PO DAILY 07/30/19 04/02/21 Hydroxychloroquine Sulfate 200 mg PO BID 07/30/19 04/02/21 [Plaquenil] Furosemide [Lasix] 20 mg PO DAILY 11/14/19 04/02/21 INSULIN ASPART (NovoLOG) [NovoLOG 8 unit SQ AC-TID PRN 11/14/19 04/02/21 (formulary)] Alendronate Sodium [Fosamax] 70 mg PO SA 04/02/21 04/02/21 Atorvastatin [Lipitor] 40 mg PO DAILY 04/02/21 04/02/21 Gabapentin [Neurontin] 200 mg PO BID 04/02/21 04/02/21 Methotrexate 50mg/2 Ml Vial 25 mg SQ MO 04/02/21 04/02/21 Metoprolol Succinate (ER) [Toprol 75 mg PO DAILY 04/02/21 04/02/21 Xl] metFORMIN HCL [Glucophage] 1,000 mg PO BID 04/02/21 04/02/21 Previous Rx's Medication Instructions Recorded Insulin Glargine [Lantus Vial] 30 unit SQ HS #1 pen 08/01/19 Azithromycin [Zithromax Tri-[place]] 500 mg PO DAILY #3 tab 04/02/21 Allergies Allergy/AdvReac Type Severity Reaction Status Date / Time No Known Allergies Allergy Verified 04/02/21 15:59 Review of Systems ROS Statement: Those systems with pertinent positive or pertinent negative responses have been documented in the HPI. ROS Other: All systems not noted in ROS Statement are negative. Past Medical History Past Medical History: Asthma, Diabetes Mellitus, Hypertension, Osteoarthritis (OA) Additional Past Medical History / Comment(s): arthritis. History of Any Multi-Drug Resistant Organisms: None Reported Past Surgical History: Tubal Ligation Additional Past Surgical History / Comment(s): wrist surgery Past Anesthesia/Blood Transfusion Reactions: No Reported Reaction Past Psychological History: No Psychological Hx Reported Past Alcohol Use History: None Reported Past Drug Use History: None Reported - Past Family History Father Family Medical History: Cancer Mother Family Medical History: Congestive Heart Failure (CHF), Hypertension General Exam - General Exam Comments Initial Comments: GENERAL: Patient is well-developed and well-nourished. Patient is nontoxic and well- hydrated and is in eyelids distress. ENT: Neck is soft and supple. No significant lymphadenopathy is noted. Oropharynx is clear. Moist mucous membranes. Neck has full range of motion without eliciting any pain. EYES: The sclera were anicteric and conjunctiva were pink and moist. Extraocular movements were intact and pupils were equal round and reactive to light. Eyelids were unremarkable. PULMONARY: Patient has crackles left base. CARDIOVASCULAR: There is a regular rate and rhythm without any murmurs gallops or rubs. ABDOMEN: Soft and nontender with normal bowel sounds. SKIN: Skin is clear with no lesions or rashes and otherwise unremarkable. NEUROLOGIC: Patient is alert and oriented x3. Cranial nerves II through XII are grossly intact. Motor and sensory are also intact. Normal speech, volume and content. Symmetrical smile. MUSCULOSKELETAL: Normal extremities with adequate strength and full range of motion. LYMPHATICS: No significant lymphadenopathy is noted PSYCHIATRIC: Normal psychiatric evaluation. Course Vital Signs 04/02/21 04/02/21 04/02/21 14:24 15:20 15:26 Temperature Pulse Rate 69 56 L 58 L Respiratory 18 Rate Blood Pressure 88/43 O2 Sat by Pulse 95 Oximetry 04/02/21 04/02/21 04/02/21 15:58 16:00 17:56 Temperature 93.0 F L 97.4 F L Pulse Rate 68 73 Respiratory 18 18 Rate Blood Pressure 112/70 133/69 O2 Sat by Pulse 98 99 Oximetry Medical Decision Making - Medical Decision Making EKG shows normal sinus rhythm at 62 bpm IA interval is 206 QRS is 92 QT interval 48 QTC is 495 per patient's EKG shows no ST segment elevation or depression. Patient received a breathing treatment and she continued to have crackles in the left base but does feel better. X-ray shows left lower lobe infiltrate. Patient got a gram of Rocephin. Oral temp at 535 was 97.4 - Lab Data Result diagrams: 04/02/21 14:57 04/02/21 14:57 Lab Results 04/02/21 04/02/21 04/02/21 Range/Units 14:23 14:57 14:57 WBC 8.4 (3.8-10.6) k/uL RBC 3.88 (3.80-5.40) m/uL Hgb 12.4 (11.4-16.0) gm/dL Hct 37.6 (34.0-46.0) % MCV 96.9 (80.0-100.0) fL MCH 32.1 (25.0-35.0) pg MCHC 33.1 (31.0-37.0) g/dL RDW 14.1 (11.5-15.5) % Plt Count 314 (150-450) k/uL MPV 7.9 Neutrophils % 79 % Lymphocytes % 15 % Monocytes % 3 % Eosinophils % 2 % Basophils % 0 % Neutrophils # 6.6 (1.3-7.7) k/uL Lymphocytes # 1.3 (1.0-4.8) k/uL Monocytes # 0.2 (0-1.0) k/uL Eosinophils # 0.2 (0-0.7) k/uL Basophils # 0.0 (0-0.2) k/uL Sodium 139 (137-145) mmol/L Potassium 4.6 (3.5-5.1) mmol/L Chloride 107 (98-107) mmol/L Carbon Dioxide 19 L (22-30) mmol/L Anion Gap 13 mmol/L BUN 25 H (7-17) mg/dL Creatinine 0.93 (0.52-1.04) mg/dL Est GFR (CKD-EPI)AfAm 75 (>60 ml/min/1.73 sqM) Est GFR (CKD-EPI)NonAf 65 (>60 ml/min/1.73 sqM) Glucose 71 L (74-99) mg/dL POC Glucose (mg/dL) 219 H (75-99) mg/dL POC Glu [employer] Analyst ID STEFF Amezquita, Pedro Pablo Calcium 10.1 (8.4-10.2) mg/dL Magnesium 2.0 (1.6-2.3) mg/dL Total Bilirubin 0.6 (0.2-1.3) mg/dL AST 61 H (14-36) U/L ALT 53 H (4-34) U/L Alkaline Phosphatase 94 (38-126) U/L Troponin I (0.000-0.034) ng/mL NT-Pro-B Natriuret Pep pg/mL Total Protein 8.5 H (6.3-8.2) g/dL Albumin 4.4 (3.5-5.0) g/dL Urine Color Urine Appearance (Clear) Urine pH (5.0-8.0) Ur Specific Wall (1.001-1.035) Urine Protein (Negative) Urine Glucose (UA) (Negative) Urine Ketones (Negative) Urine Blood (Negative) Urine Nitrite (Negative) Urine Bilirubin (Negative) Urine Urobilinogen (<2.0) mg/dL Ur Leukocyte Esterase (Negative) Urine RBC (0-5) /hpf Urine WBC (0-5) /hpf Ur Squamous Epith Cells (0-4) /hpf Hyaline Casts (0-2) /lpf Urine Mucus (None) /hpf Coronavirus (PCR) (Not Detectd) 04/02/21 04/02/21 04/02/21 Range/Units 14:57 14:57 14:59 WBC (3.8-10.6) k/uL RBC (3.80-5.40) m/uL Hgb (11.4-16.0) gm/dL Hct (34.0-46.0) % MCV (80.0-100.0) fL MCH (25.0-35.0) pg MCHC (31.0-37.0) g/dL RDW (11.5-15.5) % Plt Count (150-450) k/uL MPV Neutrophils % % Lymphocytes % % Monocytes % % Eosinophils % % Basophils % % Neutrophils # (1.3-7.7) k/uL Lymphocytes # (1.0-4.8) k/uL Monocytes # (0-1.0) k/uL Eosinophils # (0-0.7) k/uL Basophils # (0-0.2) k/uL Sodium (137-145) mmol/L Potassium (3.5-5.1) mmol/L Chloride (98-107) mmol/L Carbon Dioxide (22-30) mmol/L Anion Gap mmol/L BUN (7-17) mg/dL Creatinine (0.52-1.04) mg/dL Est GFR (CKD-EPI)AfAm (>60 ml/min/1.73 sqM) Est GFR (CKD-EPI)NonAf (>60 ml/min/1.73 sqM) Glucose (74-99) mg/dL POC Glucose (mg/dL) (75-99) mg/dL POC Glu [employer] Analyst ID Calcium (8.4-10.2) mg/dL Magnesium (1.6-2.3) mg/dL Total Bilirubin (0.2-1.3) mg/dL AST (14-36) U/L ALT (4-34) U/L Alkaline Phosphatase (38-126) U/L Troponin I <0.012 (0.000-0.034) ng/mL NT-Pro-B Natriuret Pep 537 pg/mL Total Protein (6.3-8.2) g/dL Albumin (3.5-5.0) g/dL Urine Color Urine Appearance (Clear) Urine pH (5.0-8.0) Ur Specific Wall (1.001-1.035) Urine Protein (Negative) Urine Glucose (UA) (Negative) Urine Ketones (Negative) Urine Blood (Negative) Urine Nitrite (Negative) Urine Bilirubin (Negative) Urine Urobilinogen (<2.0) mg/dL Ur Leukocyte Esterase (Negative) Urine RBC (0-5) /hpf Urine WBC (0-5) /hpf Ur Squamous Epith Cells (0-4) /hpf Hyaline Casts (0-2) /lpf Urine Mucus (None) /hpf Coronavirus (PCR) Not Detected (Not Detectd) 04/02/21 04/02/21 Range/Units 16:45 16:54 WBC (3.8-10.6) k/uL RBC (3.80-5.40) m/uL Hgb (11.4-16.0) gm/dL Hct (34.0-46.0) % MCV (80.0-100.0) fL MCH (25.0-35.0) pg MCHC (31.0-37.0) g/dL RDW (11.5-15.5) % Plt Count (150-450) k/uL MPV Neutrophils % % Lymphocytes % % Monocytes % % Eosinophils % % Basophils % % Neutrophils # (1.3-7.7) k/uL Lymphocytes # (1.0-4.8) k/uL Monocytes # (0-1.0) k/uL Eosinophils # (0-0.7) k/uL Basophils # (0-0.2) k/uL Sodium (137-145) mmol/L Potassium (3.5-5.1) mmol/L Chloride (98-107) mmol/L Carbon Dioxide (22-30) mmol/L Anion Gap mmol/L BUN (7-17) mg/dL Creatinine (0.52-1.04) mg/dL Est GFR (CKD-EPI)AfAm (>60 ml/min/1.73 sqM) Est GFR (CKD-EPI)NonAf (>60 ml/min/1.73 sqM) Glucose (74-99) mg/dL POC Glucose (mg/dL) 106 H (75-99) mg/dL POC Glu [employer] Analyst ID Kassiea, II, [place] Calcium (8.4-10.2) mg/dL Magnesium (1.6-2.3) mg/dL Total Bilirubin (0.2-1.3) mg/dL AST (14-36) U/L ALT (4-34) U/L Alkaline Phosphatase (38-126) U/L Troponin I (0.000-0.034) ng/mL NT-Pro-B Natriuret Pep pg/mL Total Protein (6.3-8.2) g/dL Albumin (3.5-5.0) g/dL Urine Color Yellow Urine Appearance Clear (Clear) Urine pH 5.0 (5.0-8.0) Ur Specific Wall 1.025 (1.001-1.035) Urine Protein Trace H (Negative) Urine Glucose (UA) 1+ H (Negative) Urine Ketones Negative (Negative) Urine Blood Negative (Negative) Urine Nitrite Negative (Negative) Urine Bilirubin Negative (Negative) Urine Urobilinogen <2.0 (<2.0) mg/dL Ur Leukocyte Esterase Large H (Negative) Urine RBC 1 (0-5) /hpf Urine WBC 19 H (0-5) /hpf Ur Squamous Epith Cells <1 (0-4) /hpf Hyaline Casts 4 H (0-2) /lpf Urine Mucus Rare H (None) /hpf Coronavirus (PCR) (Not Detectd) Disposition Clinical Impression: Hypoglycemia, Pneumonia Disposition: HOME SELF-CARE Condition: Good Additional Instructions: Patient should eat after she takes her insulin. Patient should take antibiotics as prescribed. Patient should return to any symptoms are worsening or new. Prescriptions: Azithromycin [Zithromax Tri-[place]] 500 mg PO DAILY #3 tab Is patient prescribed a controlled substance at d/c from ED?: No Referrals: Lidia Felipe MD [Primary Care Provider] - 1-2 days Time of Disposition: 18:17
[2021-04-02 14:37] VITALS: RESP 18
[2021-04-02 15:09] LABS: Basophils % (A) 0 %; Eosinophils # (A) 0.2 k/uL (0-0.7); Eosinophils % (A) 2 %; HCT 37.6 % (34.0-46.0); HGB 12.4 gm/dL (11.4-16.0); Lymphocytes # (A) 1.3 k/uL (1.0-4.8); Lymphocytes % (A) 15 %; MCH 32.1 pg (25.0-35.0); MCHC 33.1 g/dL (31.0-37.0); MCV 96.9 fL (80.0-100.0); Mean Platelet Volume 7.9; Monocytes # (A) 0.2 k/uL (0-1.0); Monocytes % (A) 3 %; Neutrophils # (A) 6.6 k/uL (1.3-7.7); Neutrophils % (A) 79 %; Platelet Count 314 k/uL (150-450); RBC 3.88 m/uL (3.80-5.40); RDW 14.1 % (11.5-15.5); WBC 8.4 k/uL (3.8-10.6)
[2021-04-02 15:27] LABS: Albumin 4.4 g/dL (3.5-5.0); Calcium 10.1 mg/dL (8.4-10.2); Potassium 4.6 mmol/L (3.5-5.1); Total Bilirubin 0.6 mg/dL (0.2-1.3); Total Protein 8.5 g/dL (6.3-8.2)
--- NOTE | 2021-04-02 15:53 | XR ---
EXAMINATION TYPE: XR chest 2V DATE OF EXAM: 04/02/2021 COMPARISON: 11/14/2019 HISTORY: 65 year-old female shortness of breath, difficulty breathing TECHNIQUE: AP and lateral views FINDINGS: Heart normal size. Mild atherosclerotic arch calcifications. Patchy mid and lower lung opacities and mild interstitial density elsewhere in the lungs. Mild hyperinflation. IMPRESSION: Interstitial changes and patchy lower lung opacities. Correlate for pneumonia versus sequela of devel oping CHF.
[2021-04-02 16:56] LABS: Glucose,Whole Blood 106 mg/dL (75-99)
[2021-04-02 17:09] LABS: Appearance,Urine Clear (Clear); Bilirubin,Urine Negative (Negative); Blood,Urine Negative (Negative); Color,Urine Yellow; Glucose,Urine (UA) 1+ (Negative); Hyaline Casts,Urine 4 /lpf (0-2); Ketones,Urine Negative (Negative); Leukocyte Esterase,Urine Large (Negative); Mucus,Urine Rare /hpf; Nitrite,Urine Negative (Negative); Protein,Urine Trace (Negative); RBC,Urine 1 /hpf (0-5); Specific Gravity,Urine 1.025 (1.001-1.035); Squamous Epithelial Cell,Urine <1 /hpf (0-4); Urobilinogen,Urine <2.0 mg/dL (<2.0); WBC,Urine 19 /hpf (0-5)
[2021-04-02] MEDS ORDERED: cefTRIAXone IN SWFI 1,000 MG/10 ML SYRINGE IVP STA ×2 (17:36→18:18)
[2021-04-02 17:58] VITALS: BP 133/69; PULSE 73; TEMP 97.4
== END 2021-04-02 18:49 | disposition home or self-care (01) ==
LOC: EC 14:15
DX: E11.649 Type 2 diabetes mellitus with hypoglycemia without coma (principal); J18.9 Pneumonia, unspecified organism; I10 Essential (primary) hypertension; J45.909 Unspecified asthma, uncomplicated; M19.90 Unspecified osteoarthritis, unspecified site; Z79.4 Long term (current) use of insulin; Z98.51 Tubal ligation status; Z20.822 Contact with and (suspected) exposure to COVID-19
CPT/HCPCS: 99285; 96374; 36415; 94640; 93005; 83880; 80053; 83735; 84484; 85025; 81001; 87086; 87635; 71046; J0696

== ENCOUNTER → 2022-05-12 | Outpatient (CLI) | payer MEDICARE, OTHER ==
--- NOTE | 2022-05-13 19:07 | MM ---
Reason for Exam: Screening (asymptomatic). Last mammogram was performed 1 year(s) and 9 month(s) ago. Patient History: Menarche at age 12. First Full-Term at age 26. Postmenopausal. Patient has history of breast feeding. Patient used Hormonal Contraceptives for 3 years. Risk Values: Angelic 5 year model risk: 1.9%. NCI Lifetime model risk: 6.4%. Prior Study Comparison: 11/18/2009 Bilateral Screening Mammogram, [facility]. 06/20/2013 Bilateral Screening Mammogram, [facility]. 04/20/2017 Bilateral Screening Mammogram, [facility]. 04/26/2018 Bilateral Screening Mammogram, [facility]. 08/07/2020 Bilateral Screening Mammogram, [facility]. Tissue Density: There are scattered fibroglandular densities. Findings: Analyzed By CAD. Bilateral benign vascular and secretory calcifications. Oval low density focal asymmetry subareolar left breast is unchanged. No significant change from prior exams. Overall Assessment: Benign, BI-RAD 2 Management: Screening Mammogram of both breasts in 1 year. 1. Patient should continue monthly self breast exams. 2. A clinical breast exam by your physician is recommended on an annual basis. 3. This exam should not preclude additional follow-up of suspicious palpable abnormalities. Electronically signed and approved by: Claudette Lorenzo M.D. Radiologist
== END | disposition home or self-care (01) ==
LOC: RADMAMWWP 15:13
PROVIDERS: ATTEND Family Medicine
DX: Z12.31 Encounter for screening mammogram for malignant neoplasm of breast (principal); Z78.0 Asymptomatic menopausal state
CPT/HCPCS: 77063; 77067

== ENCOUNTER 2022-09-04 09:20 | Inpatient (IN) | payer MEDICARE, OTHER ==
[2022-09-04] MEDS ORDERED: SODIUM CHLORIDE 0.9% 500 ML 500 ML IV STA (09:43)
[2022-09-04] MEDS ORDERED: KETOROLAC 15 MG/ML 1 ML VIAL IVP STA (09:47)
[2022-09-04] MEDS ORDERED: ONDANSETRON 4 MG/2 ML VIAL IVP STA (09:47)
--- NOTE | 2022-09-04 09:50 | ED ---
General Adult HPI - General Source: patient, RN notes reviewed, old records reviewed Mode of arrival: wheelchair Limitations: no limitations - History of Present Illness -: days(s) (5) Quality: aching Consistency: constant Improves with: none Worsens with: none Associated Symptoms: other (Body aches, shortness of breath, dizziness and sore throat) <Anant Hollins - Last Filed: 09/04/22 17:45> <Jinny Chung - Last Filed: 09/04/22 23:08> - General Chief complaint: Shortness of Breath Stated complaint: Nausea cough Time Seen by Provider: 09/04/22 09:41 - History of Present Illness Initial comments: This is a nontoxic-appearing 66-year-old female who presents to the emergency room with body aches, shortness breath, dizziness and sore throat for the past 4 days. Denies any fevers, chest pain or abdominal pain. States that she is returning from [place] with her sister 2 weeks ago. Patient is a nonsmoker. History of asthma, diabetes, hypertension and osteoarthritis. (Anant Hollins) - Related Data Home Medications Medication Instructions Recorded Confirmed Folic Acid 1 mg PO DAILY 07/30/19 09/04/22 Hydroxychloroquine Sulfate 200 mg PO BID 07/30/19 09/04/22 [Plaquenil] Furosemide [Lasix] 20 mg PO DAILY 11/14/19 09/04/22 Alendronate Sodium [Fosamax] 70 mg PO Q7D 04/02/21 09/04/22 Metoprolol Succinate (ER) [Toprol 75 mg PO DAILY 04/02/21 09/04/22 Xl] metFORMIN HCL [Glucophage] 1,000 mg PO BID 04/02/21 09/04/22 Atorvastatin [Lipitor] 20 mg PO DAILY 09/04/22 09/04/22 Citalopram Hydrobromide [CeleXA] 20 mg PO DAILY 09/04/22 09/04/22 Empagliflozin [Jardiance] 10 mg PO DAILY 09/04/22 09/04/22 Insulin Glargine,Hum.rec.anlog 32 units SQ HS 09/04/22 09/04/22 [Lantus Solostar Pen] Levothyroxine Sodium [Synthroid] 50 mcg PO DAILY 09/04/22 09/04/22 Methotrexate Sodium 25mg/Ml 25 mg SQ WE 09/04/22 09/04/22 lisinopriL 2.5 mg PO DAILY 09/04/22 09/04/22 Allergies Allergy/AdvReac Type Severity Reaction Status Date / Time No Known Allergies Allergy Verified 09/04/22 14:11 Review of Systems ROS Other: All systems not noted in ROS Statement are negative. <Anant Hollins - Last Filed: 09/04/22 17:45> ROS Other: All systems not noted in ROS Statement are negative. <Jinny Chung - Last Filed: 09/04/22 23:08> ROS Statement: Those systems with pertinent positive or pertinent negative responses have been documented in the HPI. Past Medical History Past Medical History: Asthma, Diabetes Mellitus, Hypertension, Osteoarthritis (OA) Additional Past Medical History / Comment(s): arthritis. History of Any Multi-Drug Resistant Organisms: None Reported Past Surgical History: Tubal Ligation Additional Past Surgical History / Comment(s): wrist surgery Past Anesthesia/Blood Transfusion Reactions: No Reported Reaction Past Psychological History: No Psychological Hx Reported Smoking Status: Never smoker Past Alcohol Use History: None Reported Past Drug Use History: None Reported - Past Family History Father Family Medical History: Cancer Mother Family Medical History: Congestive Heart Failure (CHF), Hypertension <Anant Hollins - Last Filed: 09/04/22 17:45> General Exam Limitations: no limitations General appearance: alert, in no apparent distress Head exam: Present: atraumatic, normocephalic Eye exam: Present: normal appearance. Absent: scleral icterus, conjunctival injection, periorbital swelling ENT exam: Present: mucous membranes moist Expanded Mouth exam: Present: tongue normal, tongue elevation. Absent: drooling, trismus, muffled voice Throat exam: negative: tonsillar erythema, tonsillomegaly, tonsillar exudate, R peritonsillar mass, L peritonsillar mass Neck exam: Present: full ROM. Absent: tenderness, meningismus, lymphadenopathy, thyromegaly Respiratory exam: Present: rales. Absent: respiratory distress, rhonchi, stridor, chest wall tenderness, accessory muscle use Cardiovascular Exam: Present: tachycardia GI/Abdominal exam: Present: soft. Absent: tenderness, rigid Extremities exam: Present: normal capillary refill. Absent: pedal edema Back exam: Absent: tenderness, CVA tenderness (R), CVA tenderness (L), rash noted Neurological exam: Present: alert, oriented X3 Psychiatric exam: Present: normal affect, normal mood Skin exam: Present: warm, dry, normal color. Absent: cyanosis, diaphoretic, petechiae, pallor <Anant Hollins - Last Filed: 09/04/22 17:45> Course Vital Signs 09/04/22 09/04/22 09/04/22 09:22 09:43 12:13 Temperature 98 F Pulse Rate 140 H 105 H Respiratory 18 20 20 Rate Blood Pressure 147/87 147/83 O2 Sat by Pulse 95 96 Oximetry 09/04/22 09/04/22 14:26 15:44 Temperature 98.0 F Pulse Rate 113 H Respiratory 20 Rate Blood Pressure 132/67 O2 Sat by Pulse 96 Oximetry Medical Decision Making - Lab Data Result diagrams: 09/04/22 10:22 09/04/22 10:22 - EKG Data -: EKG Interpreted by Me Rate: tachycardia (Sinus tachycardia with a ventricular rate of 125, MT interval 0.160, QRS 0.91, QTC 0.373, left axis deviation) <Anant Hollins - Last Filed: 09/04/22 17:45> - Lab Data Result diagrams: 09/04/22 10:22 09/04/22 10:22 <Jinny Chung - Last Filed: 09/04/22 23:08> - Medical Decision Making Patient presents with 4 days of body aches, sore throat, shortness of breath and dizziness. Recently returned from [place] 2 weeks ago was on a cruise with her sister. EKG shows sinus tachycardia with a ventricular rate of 125, MT interval 0.160, QRS 0.91, QTC 0.373, left axis deviation. Compared to old EKG 04/02/2021. Chest x-ray interpreted by me shows no focal consolidation. Radiologist impression there may be some atelectasis or pneumonia along the posterior diaphragm. Labs show no evidence of leukocytosis. D-dimer is elevated at 2. CT angiogram performed due to elevated d-dimer shows no acute pulmonary embolism. Scattered infiltrates which are nonspecific correlate for atypical pneumonia. Underlying masses are not excluded follow-up is recommended. Enlarged mediastinal adenopathy discussed above. 1.2 cm lymph node adjacent to the ascending thoracic aorta just below the aortic arch. Additional smaller lymph nodes present. Some lymphadenopathy may be within the aortopulmonary window. Small left axillary lymph nodes are noted. Troponin is elevated at 0.410. Patient denies any chest pain. Remains persistently tachycardic 102. Coronavirus and influenza swabs negative. Patient will be admitted with an NSTEMI and started on heparin. Cardiology consultation. Case discussed with Dr. Castaneda requested infectious disease also because of the patient's recent trip to [place]. Patient is agreeable to admission. Was pt. sent in by a medical professional or institution (, PA, PSYCHOLOGY PROFESSOR, urgent care, hospital, or [facility]...) When possible be specific @ -No Did you speak to anyone other than the patient for history (EMS, parent, family, police, friend...)? What history was obtained from this source @ -No Did you review nursing and triage notes (agree or disagree)? Why? @ -I reviewed and agree with nursing and triage notes Were old charts reviewed (outside hosp., previous admission, EMS record, old EKG, old radiological studies, urgent care reports/EKG's, [facility] records)? Report findings @ -Old EKG as above Differential Diagnosis (chest pain, altered mental status, abdominal pain women, abdominal pain men, vaginal bleeding, weakness, fever, dyspnea, syncope, headache, dizziness, GI bleed, back pain, seizure, CVA, palpatations, mental health, musculoskeletal)? @ -Differential Dyspnea: Coronary syndrome, arrhythmia, tamponade, asthma, COPD, pulmonary embolism, pneumonia, pneumothorax, pulmonary effusion, anaphylaxis, diabetic ketoacidosis, flailed chest, pulmonary contusion, diaphragmatic rupture, anemia, neuromuscular, this is not meant to be an all-inclusive list. EKG interpreted by me (3pts min.). @ -As above X-rays interpreted by me (1pt min.). @ -Yes as above CT interpreted by me (1pt min.). @ -No U/S interpreted by me (1pt. min.). @ -None done What testing was considered but not performed or refused? (CT, X-rays, U/S, labs)? Why? @ -None What meds were considered but not given or refused? Why? @ -None Did you discuss the management of the patient with other professionals (professionals i.e. , PA, PSYCHOLOGY PROFESSOR, lab, RT, psych nurse, social security assessor, fashion marketer, teacher, small business banking officer, case folder)? Give summary @ -Case discussed with Dr. Castaneda who recommended infectious disease consult Was smoking cessation discussed for >3mins.? @ -No Was critical care preformed (if so, how long)? @ -Yes 32 minutes Were there social determinants of health that impacted care today? How? (Homelessness, low income, unemployed, alcoholism, drug addiction, transportat ion, low edu. Level, literacy, decrease access to med. care, skilled nursing, rehab)? @ -No Was there de-escalation of care discussed even if they declined (Discuss DNR or withdrawal of care, Hospice)? DNR status @ -No What co-morbidities impacted this encounter? (DM, HTN, Smoking, COPD, CAD, Cancer, CVA, ARF, Chemo, Hep., AIDS, mental health diagnosis, sleep apnea, morbid obesity)? @ -Asthma, diabetes, hypertension, osteoarthritis Was patient admitted / discharged? Hospital course, mention meds given and route, prescriptions, significant lab abnormalities, going to OR and other pertinent info. @ -Admitted Undiagnosed new problem with uncertain prognosis? @ -No Drug Therapy requiring intensive monitoring for toxicity (Heparin, Nitro, Insulin, Cardizem)? @ -Heparin Were any procedures done? @ -No Diagnosis/symptom? @ -NSTEMI, elevated d-dimer Acute, or Chronic, or Acute on Chronic? @ -Acute Uncomplicated (without systemic symptoms) or Complicated (systemic symptoms)? @ -Complicated Side effects of treatment? @ -No Exacerbation, Progression, or Severe Exacerbation? @ -No Poses a threat to life or bodily function? How? (Chest pain, [place], [place], pneumonia, PE, COPD, DKA, ARF, appy, cholecystitis, CVA, Diverticulitis, Homicidal, Suicidal, threat to staff... and all critical care pts) @ -No (Anant Hollins) - Lab Data Lab Results 09/04/22 09/04/22 09/04/22 Range/Units 10:22 10:22 10:22 WBC 7.5 (3.8-10.6) k/uL RBC 4.24 (3.80-5.40) m/uL Hgb 13.3 (11.4-16.0) gm/dL Hct 40.2 (34.0-46.0) % MCV 94.9 (80.0-100.0) fL MCH 31.5 (25.0-35.0) pg MCHC 33.2 (31.0-37.0) g/dL RDW 14.9 (11.5-15.5) % Plt Count 255 (150-450) k/uL MPV 7.7 Neutrophils % 82 % Lymphocytes % 10 % Monocytes % 4 % Eosinophils % 2 % Basophils % 1 % Neutrophils # 6.1 (1.3-7.7) k/uL Lymphocytes # 0.7 L (1.0-4.8) k/uL Monocytes # 0.3 (0-1.0) k/uL Eosinophils # 0.2 (0-0.7) k/uL Basophils # 0.0 (0-0.2) k/uL PT 10.1 (9.0-12.0) sec INR 0.9 (<1.2) APTT 29.1 (22.0-30.0) sec D-Dimer 2.22 H (<0.60) mg/L FEU Sodium 133 L (137-145) mmol/L Potassium 4.4 (3.5-5.1) mmol/L Chloride 99 (98-107) mmol/L Carbon Dioxide 24 (22-30) mmol/L Anion Gap 10 mmol/L BUN 17 (7-17) mg/dL Creatinine 0.69 (0.52-1.04) mg/dL Est GFR (CKD-EPI)AfAm >90 (>60 ml/min/1.73 sqM) Est GFR (CKD-EPI)NonAf >90 (>60 ml/min/1.73 sqM) Glucose 191 H (74-99) mg/dL POC Glucose (mg/dL) (70-110) mg/dL POC Glu Nonprofit Fundraiser ID Plasma Lactic Acid Chris (0.7-2.0) mmol/L Calcium 8.6 (8.4-10.2) mg/dL Magnesium 1.8 (1.6-2.3) mg/dL Total Bilirubin 0.9 (0.2-1.3) mg/dL AST 29 (14-36) U/L ALT 17 (4-34) U/L Alkaline Phosphatase 79 (38-126) U/L Troponin I (0.000-0.034) ng/mL Total Protein 8.4 H (6.3-8.2) g/dL Albumin 3.9 (3.5-5.0) g/dL Influenza Type A (PCR) (Not Detectd) Influenza Type B (PCR) (Not Detectd) RSV (PCR) (Not Detectd) SARS-CoV-2 (PCR) (Not Detectd) 09/04/22 09/04/22 09/04/22 Range/Units 10:22 10:22 10:22 WBC (3.8-10.6) k/uL RBC (3.80-5.40) m/uL Hgb (11.4-16.0) gm/dL Hct (34.0-46.0) % MCV (80.0-100.0) fL MCH (25.0-35.0) pg MCHC (31.0-37.0) g/dL RDW (11.5-15.5) % Plt Count (150-450) k/uL MPV Neutrophils % % Lymphocytes % % Monocytes % % Eosinophils % % Basophils % % Neutrophils # (1.3-7.7) k/uL Lymphocytes # (1.0-4.8) k/uL Monocytes # (0-1.0) k/uL Eosinophils # (0-0.7) k/uL Basophils # (0-0.2) k/uL PT (9.0-12.0) sec INR (<1.2) APTT (22.0-30.0) sec D-Dimer (<0.60) mg/L FEU Sodium (137-145) mmol/L Potassium (3.5-5.1) mmol/L Chloride (98-107) mmol/L Carbon Dioxide (22-30) mmol/L Anion Gap mmol/L BUN (7-17) mg/dL Creatinine (0.52-1.04) mg/dL Est GFR (CKD-EPI)AfAm (>60 ml/min/1.73 sqM) Est GFR (CKD-EPI)NonAf (>60 ml/min/1.73 sqM) Glucose (74-99) mg/dL POC Glucose (mg/dL) (70-110) mg/dL POC Glu Nonprofit Fundraiser ID Plasma Lactic Acid Chris 1.4 (0.7-2.0) mmol/L Calcium (8.4-10.2) mg/dL Magnesium (1.6-2.3) mg/dL Total Bilirubin (0.2-1.3) mg/dL AST (14-36) U/L ALT (4-34) U/L Alkaline Phosphatase (38-126) U/L Troponin I 0.410 H* (0.000-0.034) ng/mL Total Protein (6.3-8.2) g/dL Albumin (3.5-5.0) g/dL Influenza Type A (PCR) Not Detected (Not Detectd) Influenza Type B (PCR) Not Detected (Not Detectd) RSV (PCR) Not Detected (Not Detectd) SARS-CoV-2 (PCR) Not Detected (Not Detectd) 09/04/22 Range/Units 11:25 WBC (3.8-10.6) k/uL RBC (3.80-5.40) m/uL Hgb (11.4-16.0) gm/dL Hct (34.0-46.0) % MCV (80.0-100.0) fL MCH (25.0-35.0) pg MCHC (31.0-37.0) g/dL RDW (11.5-15.5) % Plt Count (150-450) k/uL MPV Neutrophils % % Lymphocytes % % Monocytes % % Eosinophils % % Basophils % % Neutrophils # (1.3-7.7) k/uL Lymphocytes # (1.0-4.8) k/uL Monocytes # (0-1.0) k/uL Eosinophils # (0-0.7) k/uL Basophils # (0-0.2) k/uL PT (9.0-12.0) sec INR (<1.2) APTT (22.0-30.0) sec D-Dimer (<0.60) mg/L FEU Sodium (137-145) mmol/L Potassium (3.5-5.1) mmol/L Chloride (98-107) mmol/L Carbon Dioxide (22-30) mmol/L Anion Gap mmol/L BUN (7-17) mg/dL Creatinine (0.52-1.04) mg/dL Est GFR (CKD-EPI)AfAm (>60 ml/min/1.73 sqM) Est GFR (CKD-EPI)NonAf (>60 ml/min/1.73 sqM) Glucose (74-99) mg/dL POC Glucose (mg/dL) 158 H (70-110) mg/dL POC Glu Nonprofit Fundraiser GLENN Amanda Saul Plasma Lactic Acid Chris (0.7-2.0) mmol/L Calcium (8.4-10.2) mg/dL Magnesium (1.6-2.3) mg/dL Total Bilirubin (0.2-1.3) mg/dL AST (14-36) U/L ALT (4-34) U/L Alkaline Phosphatase (38-126) U/L Troponin I (0.000-0.034) ng/mL Total Protein (6.3-8.2) g/dL Albumin (3.5-5.0) g/dL Influenza Type A (PCR) (Not Detectd) Influenza Type B (PCR) (Not Detectd) RSV (PCR) (Not Detectd) SARS-CoV-2 (PCR) (Not Detectd) Critical Care Time Critical Care Time: Yes Total Critical Care Time: 32 (NSTEMI, elevated dimer) <Anant Hollins - Last Filed: 09/04/22 17:45> Disposition Decision Date: 09/04/22 Decision Time: 12:57 <Anant Hollins - Last Filed: 09/04/22 17:45> <Jinny Chung - Last Filed: 09/04/22 23:08> Clinical Impression: NSTEMI (non-ST elevated myocardial infarction), Elevated d-dimer Disposition: ADMITTED IP TO THIS HOSP
[2022-09-04 11:00] LABS: Basophils % (A) 1 %; Eosinophils # (A) 0.2 k/uL (0-0.7); Eosinophils % (A) 2 %; HCT 40.2 % (34.0-46.0); HGB 13.3 gm/dL (11.4-16.0); Lymphocytes # (A) 0.7 k/uL (1.0-4.8); Lymphocytes % (A) 10 %; MCH 31.5 pg (25.0-35.0); MCHC 33.2 g/dL (31.0-37.0); MCV 94.9 fL (80.0-100.0); Mean Platelet Volume 7.7; Monocytes # (A) 0.3 k/uL (0-1.0); Monocytes % (A) 4 %; Neutrophils # (A) 6.1 k/uL (1.3-7.7); Neutrophils % (A) 82 %; Platelet Count 255 k/uL (150-450); RBC 4.24 m/uL (3.80-5.40); RDW 14.9 % (11.5-15.5); WBC 7.5 k/uL (3.8-10.6)
[2022-09-04 11:13] LABS: ALT 17 U/L (4-34); AST 29 U/L (14-36); African American GFR (CKD) >90 (>60 ml/min/1.73 sqM); Albumin 3.9 g/dL (3.5-5.0); Alkaline Phosphatase 79 U/L (38-126); Anion Gap 10 mmol/L; Blood Urea Nitrogen 17 mg/dL (7-17); Calcium 8.6 mg/dL (8.4-10.2); Carbon Dioxide 24 mmol/L (22-30); Chloride 99 mmol/L (98-107); Glucose 191 mg/dL (74-99); Magnesium 1.8 mg/dL (1.6-2.3); Non-African American GFR(CKD) >90 (>60 ml/min/1.73 sqM); Potassium 4.4 mmol/L (3.5-5.1); Sodium 133 mmol/L (137-145); Total Bilirubin 0.9 mg/dL (0.2-1.3); Total Protein 8.4 g/dL (6.3-8.2)
[2022-09-04 11:14] LABS: INR 0.9 (<1.2); Partial Thromboplastin Time 29.1 sec (22.0-30.0); Prothrombin Time 10.1 sec (9.0-12.0)
[2022-09-04 11:28] LABS: Glucose,Whole Blood 158 mg/dL (70-110)
--- NOTE | 2022-09-04 11:32 | XR ---
EXAMINATION TYPE: XR chest 2V DATE OF EXAM: 09/04/2022 COMPARISON: 04/02/2021 INDICATION: Difficulty breathing nausea cough TECHNIQUE: Frontal and lateral views of the chest are obtained. FINDINGS: The heart size is normal. The pulmonary vasculature is normal. On the lateral projection and may be increased lung markings above the diaphragm. Correlate for atele ctasis or pneumonia. No other suspicious focal consolidations evident. IMPRESSION: 1. There may be some atelectasis or pneumonia along the posterior diaphragm. Follow-up exam performed as clinically indicated.
--- NOTE | 2022-09-04 12:37 | CT ---
CT CHEST FOR PULMONARY EMBOLISM. EXAMINATION TYPE: CT angio chest DATE OF EXAM: 09/04/2022 INDICATION: pe CT DLP: 367.5 mGycm, Automated exposure control for dose reduction was used. CONTRAST: Patient injected with 60 mL of Isovue 370. COMPARISON: None TECHNIQUE: CT of the chest is performed on a spiral scan at 2 mm thick sections. Study is performed with intravenous contrast timed for evaluation for pulmonary embolism. This will limit additional po rtions of the evaluation. 3-D MIP images reconstructed by the technologist are reviewed on the compu ter in the coronal and sagittal planes. FINDINGS: No persistent filling defects are evident to suggest an acute pulmonary embolism. There is a 1.2 cm lymph node adjacent to the ascending thoracic aorta just below the aortic arch leve l. Additional smaller lymph nodes are present. A couple of smaller pretracheal lymph nodes are presen t. Some lymphadenopathy may be within the aortopulmonic window. Small left axillary lymph nodes are n oted. The ascending aorta diameter at the level of the main pulmonary artery is 3.3 cm. The main pu lmonary artery diameter at the bifurcation is 3.1 cm. Some pneumonitis changes in the left apex, example image series 401 image 29. Scattered infiltrate is within the left suprahilar region. Underlying mass is not excluded. Example image series 401 image 5 7. Some pneumonitis changes in the right middle lung. Series 401 image 62. Scattered right infrahilar infiltrates are present. Pulmonary fibrosis type changes are in the posterior dependent inferior jono g bases. Limited CT section through the upper abdomen are unremarkable. IMPRESSIONS: 1. No acute pulmonary embolism. 2. Scattered infiltrates which are nonspecific. Correlate for atypical pneumonia. Underlying masses a re not excluded. Follow-up is recommended. 3. Enlarged mediastinal adenopathy discussed above.
[2022-09-04] MEDS ORDERED: AZITHROMYCIN 500 MG in SODIUM CHLORIDE 0.9% 250 ML IVPB STA (12:43)
[2022-09-04] MEDS ORDERED: HEPARIN SODIUM 1,000 UN/ML (10ML VL) IV PRN (12:54)
[2022-09-04] MEDS ORDERED: HEPARIN SODIUM 1,000 UN/ML (10ML VL) IV ONE (12:54)
[2022-09-04] MEDS ORDERED: cefTRIAXone IN SWFI 1,000 MG/10 ML SYRINGE IVP STA (12:54)
[2022-09-04] MEDS ORDERED: NALOXONE 0.4 MG/ML 1 ML VIAL IV PRN (12:56)
[2022-09-04] MEDS ORDERED: ASPIRIN 81 MG PO STA (12:58)
[2022-09-04] MEDS: HEPARIN SOD,PORK IN 0.45% NACL 25,000 UNIT in 0.45% NACL 1 250ML.BAG IV SCH (13:35)
[2022-09-04 15:21] LABS: Appearance,Urine Clear (Clear); Bilirubin,Urine Negative (Negative); Blood,Urine Moderate (Negative); Color,Urine Yellow; Glucose,Urine (UA) 1+ (Negative); Ketones,Urine 1+ (Negative); Leukocyte Esterase,Urine Small (Negative); Mucus,Urine Occasional /hpf; Nitrite,Urine Negative (Negative); PH, Urine 5.5 (5.0-8.0); Protein,Urine 1+ (Negative); RBC,Urine 16 /hpf (0-5); Specific Gravity,Urine >1.050 (1.001-1.035); Squamous Epithelial Cell,Urine 1 /hpf (0-4); Urobilinogen,Urine <2.0 mg/dL (<2.0); WBC,Urine 3 /hpf (0-5)
--- NOTE | 2022-09-04 16:00 | HP ---
HISTORY AND PHYSICAL CHIEF COMPLAINT: Shortness of breath, cough, and fever. HISTORY OF PRESENT ILLNESS: This is a 66-year-old woman with a past medical history of multiple medical issues including asthma, diabetes, hypertension, recently returned from a cruise in [place]. The patient apparently flew to [place] to [place] and then spend about 10 days in a cruise, but the patient is okay, but over the last 1 week the patient is having shortness of breath, cough, sore throat and fever. The patient came to [facility]. The D-dimer was elevated and the patient was noted to have bilateral pneumonia interstitial type and admitted for further evaluation and treatment. COVID- 19 is negative at this time. There is no history of any fever, rigors, or chills. The patient's sister who traveled with her is feeling okay. PAST MEDICAL HISTORY: Reviewed, include asthma and diabetes mellitus. The rest of the history and rest of the chart is also reviewed. HOME MEDICATIONS: Reviewed include Glucophage. Rest of medication and doses are noted. They are not confirmed. ALLERGIES: None. FAMILY HISTORY: History of cancer in the family. SOCIAL HISTORY: No history of smoking, alcohol. REVIEW OF SYSTEMS: Fourteen-point review is negative as mentioned earlier. PHYSICAL EXAMINATION: VITAL SIGNS: Pulse 105, blood pressure 147/80, respirations 20. HEENT: Conjunctivae normal. NECK: No jugular venous distention. CARDIOVASCULAR: S1 and S2. RESPIRATORY: Few scattered rhonchi and crackles. ABDOMEN: Soft and nontender. NERVOUS SYSTEM: Nonfocal. SKIN: No ulcer, rash, bleeding. JOINTS: No active deforming arthropathy. LABORATORY DATA: CBC noted. D-dimer is 0.22. Sodium 133. Rest of the labs are noted. ASSESSMENT: 1. Acute bilateral interstitial pneumonia with failure of outpatient treatment. 2. Elevated D-dimer without any evidence of pulmonary embolism. 3. Troponin 0.410. Rule out acute ops-[id number]-elevation myocardial infarction. 4. History of asthma. 5. Diabetes. 6. Hypertension. 7. History of degenerative joint disease. RECOMMENDATIONS: This is a 66-year-old woman who presented with multiple complex medical issues, we will monitor the patient closely. Initiate broad-spectrum IV antibiotics. Obtain the cultures. Obtain Infectious Disease evaluation. Exact nature of the pneumonia is unclear at this time. I recommend mycoplasma and Legionella testing also. The viral titers are negative so far. Otherwise, we will also obtain Cardiology consultation for elevated troponin. 2D echo will be ordered. Overall prognosis guarded and further recommendations to follow. See orders for further details. Discussed with the patient and family at the bedside. SONG / DOREEN: [id number] /
[2022-09-04 20:26] LABS: Glucose,Whole Blood 159 mg/dL (70-110)
--- NOTE | 2022-09-04 21:01 | P.CONS ---
History of Present Illness - Reason for Consult Consult date: 09/04/22 Pneumonia Requesting physician: Anant Hollins - Chief Complaint Shortness of breath and cough x few days - History of Present Illness Patient is a 66-year-old female with a past medical history significant for hypertension osteoarthritis diabetes mellitus and asthma recently coming back from a 10-day cruise trip including visit to the [place] patient came back 2 weeks ago about 4 days ago the patient started getting sick started with body aches did have a headache cough which has been moderate intensity with occasional yellow sputum and shortness of breath patient did have some chills denies high-grade fever with the symptoms the patient was evaluated by the ER physician on arrival to the ER the patient was afebrile patient was tachycardic did have a normal white count kidney function was normal liver enzymes are normal troponins were elevated urine was negative influenza RSV and COVID testing was negative patient did have a chest x-ray some atelectasis or pneumo felisa along the posterior diaphragm patient did have a CT angiogram of the chest no acute PE scattered infiltrates which are nonspecific correlate for atypical pneumonia patient was started on Rocephin infectious he was consulted for further management of antibiotic therapy Review of Systems Positive point has been mentioned in the HPI rest of the systems are negative Past Medical History Past Medical History: Asthma, Diabetes Mellitus, Hypertension, Osteoarthritis (OA) Additional Past Medical History / Comment(s): arthritis. History of Any Multi-Drug Resistant Organisms: None Reported Past Surgical History: Tubal Ligation Additional Past Surgical History / Comment(s): wrist surgery Past Anesthesia/Blood Transfusion Reactions: No Reported Reaction Past Psychological History: No Psychological Hx Reported Smoking Status: Never smoker Past Alcohol Use History: None Reported Past Drug Use History: None Reported - Past Family History Father Family Medical History: Cancer Mother Family Medical History: Congestive Heart Failure (CHF), Hypertension Medications and Allergies Home Medications Medication Instructions Recorded Confirmed Type Folic Acid 1 mg PO DAILY 07/30/19 09/04/22 History Hydroxychloroquine Sulfate 200 mg PO BID 07/30/19 09/04/22 History [Plaquenil] Furosemide [Lasix] 20 mg PO DAILY 11/14/19 09/04/22 History Alendronate Sodium [Fosamax] 70 mg PO Q7D 04/02/21 09/04/22 History metFORMIN HCL [Glucophage] 1,000 mg PO BID 04/02/21 09/04/22 History Citalopram Hydrobromide [CeleXA] 20 mg PO DAILY 09/04/22 09/04/22 History Empagliflozin [Jardiance] 10 mg PO DAILY 09/04/22 09/04/22 History Insulin Glargine,Hum.rec.anlog 32 units SQ HS 09/04/22 09/04/22 History [Lantus Solostar Pen] Levothyroxine Sodium [Synthroid] 50 mcg PO DAILY 09/04/22 09/04/22 History Methotrexate Sodium 25mg/Ml 25 mg SQ WE 09/04/22 09/04/22 History lisinopriL 2.5 mg PO DAILY 09/04/22 09/04/22 History Aspirin 81 mg PO DAILY 30 Days #30 tab 09/07/22 Rx Atorvastatin [Lipitor] 40 mg PO DAILY 30 Days #30 tab 09/07/22 Rx Doxycycline [Vibramycin] 100 mg PO BID #10 cap 09/07/22 Rx Metoprolol Succinate (ER) [Toprol 100 mg PO DAILY #30 tab 09/07/22 Rx XL] cefUROXime axetiL [Cefuroxime] 500 mg PO BID #10 tab 09/07/22 Rx Allergies Allergy/AdvReac Type Severity Reaction Status Date / Time No Known Allergies Allergy Verified 09/04/22 14:11 Physical Exam Vitals: Vital Signs Temp Pulse Resp BP Pulse Ox 09/04/22 14:26 113 H 20 132/67 96 09/04/22 12:13 105 H 20 147/83 96 09/04/22 09:43 20 09/04/22 09:22 98 F 140 H 18 147/87 95 Intake and Output 09/03/22 09/04/22 09/04/22 22:59 06:59 14:59 Other: Weight 90.718 kg GENERAL DESCRIPTION: Elderly female lying in bed, no distress. No tachypnea or accessory muscle of respiration use. HEENT: Shows Pallor , no scleral icterus. Oral mucous membrane is dry. No pharyngeal erythema or thrush NECK: Trachea central, no thyromegaly. LUNGS: Unlabored breathing. Coarse breath sounds bilaterally HEART: S1, S2, regular rate and rhythm. No loud murmur ABDOMEN: Soft, no tenderness , guarding or rigidity, no organomegaly EXTREMITIES: No edema of feet. SKIN: No rash, no masses palpable. NEUROLOGICAL: The patient is awake, alert, oriented x3, mood and affect normal. Results CBC & Chem 7: 09/06/22 07:53 09/06/22 07:53 Labs: Abnormal Lab Results - Last 24 Hours (Table) 09/04/22 09/04/22 09/04/22 Range/Units 10:22 10:22 10:22 Lymphocytes # 0.7 L (1.0-4.8) k/uL D-Dimer 2.22 H (<0.60) mg/L FEU Sodium 133 L (137-145) mmol/L Glucose 191 H (74-99) mg/dL POC Glucose (mg/dL) (70-110) mg/dL Troponin I (0.000-0.034) ng/mL Total Protein 8.4 H (6.3-8.2) g/dL 09/04/22 09/04/22 Range/Units 10:22 11:25 Lymphocytes # (1.0-4.8) k/uL D-Dimer (<0.60) mg/L FEU Sodium (137-145) mmol/L Glucose (74-99) mg/dL POC Glucose (mg/dL) 158 H (70-110) mg/dL Troponin I 0.410 H* (0.000-0.034) ng/mL Total Protein (6.3-8.2) g/dL Assessment and Plan (1) Pneumonia Status: Acute Code(s): J18.9 - PNEUMONIA, UNSPECIFIED ORGANISM SNOMED Code(s): 664031516 Plan: 1patient presented to hospital with increasing shortness of breath cough with yellow sputum with decision elevated concerning for possible pneumonia questiona ble atypical pathogen in this patient with recent cruise trip to the [place] 2we will obtain sputum for Gram stain and culture, check urine for Legionella antigen, check a procalcitonin and CRP 3continue with Rocephin we will add doxycycline We will follow on clinical condition and cultures to further adjust medication if needed Thank you for this consultation we will follow the patient along with you Time with Patient: Greater than 30
[2022-09-04] MEDS: DOXYCYCLINE 100 MG CAP PO SCH (21:28)
[2022-09-05 06:17] LABS: Glucose,Whole Blood 135 mg/dL (70-110)
[2022-09-05] MEDS: ACETAMINOPHEN TAB 325 MG TAB PO PRN ×2 (06:17→22:00)
[2022-09-05 07:52] LABS: Prothrombin Time 10.7 sec (9.0-12.0)
[2022-09-05 08:08] LABS: Basophils % (A) 0 %; Eosinophils # (A) 0.2 k/uL (0-0.7); Eosinophils % (A) 5 %; HCT 32.8 % (34.0-46.0); HGB 10.8 gm/dL (11.4-16.0); Lymphocytes # (A) 1.2 k/uL (1.0-4.8); Lymphocytes % (A) 30 %; MCH 31.6 pg (25.0-35.0); Mean Platelet Volume 7.5; Monocytes # (A) 0.2 k/uL (0-1.0); Monocytes % (A) 6 %; Neutrophils # (A) 2.2 k/uL (1.3-7.7); Neutrophils % (A) 55 %; Platelet Count 243 k/uL (150-450); RBC 3.42 m/uL (3.80-5.40); RDW 14.5 % (11.5-15.5)
[2022-09-05 08:25] LABS: ALT 14 U/L (4-34); AST 25 U/L (14-36); African American GFR (CKD) >90 (>60 ml/min/1.73 sqM); Albumin 3.1 g/dL (3.5-5.0); Alkaline Phosphatase 65 U/L (38-126); Anion Gap 5 mmol/L; Blood Urea Nitrogen 20 mg/dL (7-17); Calcium 7.9 mg/dL (8.4-10.2); Carbon Dioxide 25 mmol/L (22-30); Chloride 102 mmol/L (98-107); Glucose 140 mg/dL (74-99); Non-African American GFR(CKD) 78 (>60 ml/min/1.73 sqM); Potassium 4.2 mmol/L (3.5-5.1); Sodium 132 mmol/L (137-145); Total Bilirubin 0.5 mg/dL (0.2-1.3)
[2022-09-05] MEDS ORDERED: DEXTROSE 50% SYRINGE 50 ML IVP PRN ×2 (08:41)
--- NOTE | 2022-09-05 08:53 | P.CRDCN ---
History of Present Illness Consult date: 09/05/22 Chief complaint: Generalized weakness History of present illness: The patient is a pleasant 66-year-old female patient with a past medical history significant for diabetes and hypertension and dyslipidemia and carotid atherosclerosis who presented to the hospital complaining of a few days history of cough productive of sputum associated with headache. She just came from [place] a few days ago. She underwent further cardiac testing including COVID at [facility] and both came in to be unremarkable. She reports no pain in the chest and no shortness of breath and no dizziness or lightheadedness and no feeling of heart racing or fluttering and no presyncope or syncope. We consulted to see the patient because she underwent troponin checked and that came in to be slightly elevated. The EKG showed sinus rhythm was sinus tachycardia when she presented to the hospital. D-dimer came in to be elevated subsequently CTA of the chest showed no evidence of pulmonary embolism. The chest x-ray showed findings consistent with a pneumonia. Infectious disease was consulted to see the patient and currently she is on antibiotic. The patient has no history of CAD and no history of revascularization but she does have carotid atherosclerosis and also she does have diabetes and hypertension and dyslipidemia. She does not smoke. No significant family history of coronary artery disease. Currently she is on heparin. Beside that she is on beta blo cker with Toprol-XL. Also she is on statin. The examination is remarkable for stable vital signs with normal blood pressure and heart rate and regular rhythm with distant heart sounds and bilateral expiratory wheezing also noted on examination. She has no lower except his edema. She has no carotid bruit Assessment Symptoms of cough productive of sputum concerning for a pneumonia Evidence of myocardial injury was no evidence of ischemia clinically. Further risk stratification to be performed including an echocardiogram Headache and body ache concerning for viral infection Multiple risk factors including hypertension and dyslipidemia and diabetes Carotid atherosclerosis Sinus tachycardia which has improved Plan Continue the heparin for additional 24 hours Add aspirin to the current medical regimen Continue beta galilea and statin Further risk stratification including echocardiogram to assess the ejection fraction and for any wall motion abnormalities concerning for severe CAD. Further recommendation to follow the echocardiogram Past Medical History Past Medical History: Asthma, Diabetes Mellitus, Hypertension, Osteoarthritis (OA) Additional Past Medical History / Comment(s): arthritis. History of Any Multi-Drug Resistant Organisms: None Reported Past Surgical History: Tubal Ligation Additional Past Surgical History / Comment(s): wrist surgery Past Anesthesia/Blood Transfusion Reactions: No Reported Reaction Past Psychological History: No Psychological Hx Reported Smoking Status: Never smoker Past Alcohol Use History: None Reported Past Drug Use History: None Reported - Past Family History Father Family Medical History: Cancer Mother Family Medical History: Congestive Heart Failure (CHF), Hypertension Medications and Allergies Home Medications Medication Instructions Recorded Confirmed Type Folic Acid 1 mg PO DAILY 07/30/19 09/04/22 History Hydroxychloroquine Sulfate 200 mg PO BID 07/30/19 09/04/22 History [Plaquenil] Furosemide [Lasix] 20 mg PO DAILY 11/14/19 09/04/22 History Alendronate Sodium [Fosamax] 70 mg PO Q7D 04/02/21 09/04/22 History Metoprolol Succinate (ER) [Toprol 75 mg PO DAILY 04/02/21 09/04/22 History Xl] metFORMIN HCL [Glucophage] 1,000 mg PO BID 04/02/21 09/04/22 History Atorvastatin [Lipitor] 20 mg PO DAILY 09/04/22 09/04/22 History Citalopram Hydrobromide [CeleXA] 20 mg PO DAILY 09/04/22 09/04/22 History Empagliflozin [Jardiance] 10 mg PO DAILY 09/04/22 09/04/22 History Insulin Glargine,Hum.rec.anlog 32 units SQ HS 09/04/22 09/04/22 History [Lantus Solostar Pen] Levothyroxine Sodium [Synthroid] 50 mcg PO DAILY 09/04/22 09/04/22 History Methotrexate Sodium 25mg/Ml 25 mg SQ WE 09/04/22 09/04/22 History lisinopriL 2.5 mg PO DAILY 09/04/22 09/04/22 History Allergies Allergy/AdvReac Type Severity Reaction Status Date / Time No Known Allergies Allergy Verified 09/04/22 14:11 Physical Exam Vitals: Vital Signs Temp Pulse Pulse Resp BP BP Pulse Ox 09/05/22 04:00 97.8 F 96 18 116/74 94 L 09/05/22 02:00 97 18 09/05/22 00:00 97.8 F 97 18 114/64 95 09/04/22 20:00 98.0 F 96 18 103/56 09/04/22 16:15 95 09/04/22 16:04 98.2 F 102 H 20 138/70 97 09/04/22 15:44 98.0 F 09/04/22 14:26 113 H 20 132/67 96 09/04/22 12:13 105 H 20 147/83 96 09/04/22 09:43 20 09/04/22 09:22 98 F 140 H 18 147/87 95 Intake and Output 09/04/22 09/05/22 09/05/22 22:59 06:59 14:59 Intake Total 180 Balance 180 Intake: Oral 180 Other: # Voids 1 Weight 90.718 kg 91.2 kg Results 09/05/22 07:27 09/05/22 07:27 Cardiac Enzymes 09/04/22 09/04/22 09/04/22 Range/Units 10:22 10:22 16:15 AST 29 (14-36) U/L Troponin I 0.410 H* 0.236 H* (0.000-0.034) ng/mL 09/04/22 09/05/22 Range/Units 19:33 07:27 AST 25 (14-36) U/L Troponin I 0.150 H* (0.000-0.034) ng/mL Coagulation 09/04/22 09/04/22 09/05/22 Range/Units 10:22 16:15 07:27 PT 10.1 10.7 (9.0-12.0) sec APTT 29.1 68.9 H (22.0-30.0) sec CBC 09/04/22 09/05/22 Range/Units 10:22 07:27 WBC 7.5 4.0 (3.8-10.6) k/uL RBC 4.24 3.42 L (3.80-5.40) m/uL Hgb 13.3 10.8 L (11.4-16.0) gm/dL Hct 40.2 32.8 L (34.0-46.0) % Plt Count 255 243 (150-450) k/uL Comprehensive Metabolic Panel 09/04/22 09/05/22 Range/Units 10:22 07:27 Sodium 133 L 132 L (137-145) mmol/L Potassium 4.4 4.2 (3.5-5.1) mmol/L Chloride 99 102 (98-107) mmol/L Carbon Dioxide 24 25 (22-30) mmol/L BUN 17 20 H (7-17) mg/dL Creatinine 0.69 0.79 (0.52-1.04) mg/dL Glucose 191 H 140 H (74-99) mg/dL Calcium 8.6 7.9 L (8.4-10.2) mg/dL AST 29 25 (14-36) U/L ALT 17 14 (4-34) U/L Alkaline Phosphatase 79 65 (38-126) U/L Total Protein 8.4 H 7.0 (6.3-8.2) g/dL Albumin 3.9 3.1 L (3.5-5.0) g/dL Current Medications Generic Name Dose Route Start Last Admin Trade Name Freq PRN Reason Stop Dose Admin Acetaminophen 650 mg 09/04/22 12:56 09/05/22 06:17 Acetaminophen Tab 325 Mg Tab PO 650 mg Q6HR PRN Administration Mild Pain or Fever > 100.5 Aspirin 81 mg 09/05/22 09:00 Aspirin 81 Mg PO DAILY [facility] Atorvastatin Calcium 20 mg 09/05/22 09:00 Atorvastatin 20 Mg Tab PO DAILY [facility] Citalopram Hydrobromide 20 mg 09/05/22 09:00 Citalopram Hydrobromide 20 Mg Tab PO DAILY [facility] Dapagliflozin 5 mg 09/05/22 09:00 Dapagliflozin Propanediol 5 Mg Tablet PO DAILY [facility] Dextrose/Water 25 ml 09/05/22 08:41 Dextrose 50% Syringe 50 Ml IVP PER PROTOCOL PRN Hypoglycemia Protocol Dextrose/Water 50 ml 09/05/22 08:41 Dextrose 50% Syringe 50 Ml IVP PER PROTOCOL PRN Hypoglycemia Protocol Doxycycline Monohydrate 100 mg 09/04/22 21:00 09/04/22 21:28 Doxycycline 100 Mg Cap PO 100 mg BID RAGHU Administration Protocol Famotidine 20 mg 09/05/22 09:00 Famotidine 20 Mg Tab PO DAILY [facility] Folic Acid 1 mg 09/05/22 09:00 Folic Acid 1 Mg Tab PO DAILY [facility] Heparin Sodium (Porcine) 0 unit 09/04/22 12:54 Heparin Sodium 1,000 Un/Ml (10ml Vl) IV PER PROTOCOL PRN Low PTT Protocol Hydroxychloroquine Sulfate 200 mg 09/05/22 09:00 Hydroxychloroquine Sulfate 200 Mg Tab PO BID [facility] Heparin Sodium/Sodium Chloride 250 mls @ 10 mls/hr 09/04/22 13:00 09/04/22 13:35 25,000 unit/ Sodium Chloride IV 11.023 units/kg/hr .Q24H RAGHU 10 mls/hr Administration Protocol 11.023 UNITS/KG/HR Ceftriaxone Sodium 1 gm/ 50 mls @ 100 mls/hr 09/05/22 09:00 Sodium Chloride IVPB DAILY [facility] Insulin Aspart 0 unit 09/05/22 12:30 Insulin Aspart (Novolog) 100 Unit/Ml Vial SQ ACHS [facility] Protocol Insulin Detemir 32 unit 09/05/22 21:00 Insulin Detemir (Levemir) 100 Unit/Ml Syr SQ HS [facility] Levothyroxine Sodium 50 mcg 09/06/22 06:30 Levothyroxine 50 Mcg Tab PO DAILY@0630 [facility] Metoprolol Succinate 75 mg 09/05/22 09:00 Metoprolol Succinate (Er) 25 Mg Tab.Er.24h PO DAILY [facility] Naloxone HCl 0.2 mg 09/04/22 12:56 Naloxone 0.4 Mg/Ml 1 Ml Vial IV Q2M PRN Opioid Reversal Intake and Output 09/04/22 09/05/22 09/05/22 22:59 06:59 14:59 Intake Total 180 Balance 180 Intake: Oral 180 Other: # Voids 1 Weight 90.718 kg 91.2 kg 09/05/22 07:27 09/05/22 07:27
[2022-09-05] MEDS ORDERED: cefTRIAXone 1,000 MG VIAL (IM USE) IM SCH (09:00)
[2022-09-05] MEDS: ATORVASTATIN 20 MG TAB PO SCH (09:15)
[2022-09-05] MEDS: CITALOPRAM HYDROBROMIDE 20 MG TAB PO SCH (09:15)
[2022-09-05] MEDS: METOPROLOL SUCCINATE (ER) 25 MG TAB.ER.24H PO SCH (09:16)
[2022-09-05] MEDS: FOLIC ACID 1 MG TAB PO SCH (09:16)
[2022-09-05] MEDS: DAPAGLIFLOZIN PROPANEDIOL 5 MG TABLET PO SCH (09:16)
[2022-09-05] MEDS: DOXYCYCLINE 100 MG CAP PO SCH ×2 (09:16→22:02)
[2022-09-05] MEDS: HYDROXYCHLOROQUINE SULFATE 200 MG TAB PO SCH ×2 (09:16→22:01)
[2022-09-05] MEDS: FAMOTIDINE 20 MG TAB PO SCH (09:16)
[2022-09-05] MEDS: ASPIRIN 81 MG PO SCH (09:16)
[2022-09-05 11:43] LABS: Glucose,Whole Blood 170 mg/dL (70-110)
[2022-09-05] MEDS: ALBUTEROL NEBULIZED 2.5 MG/3 ML INHALATION PRN (12:27)
[2022-09-05] MEDS: INSULIN ASPART (NovoLOG) 100 UNIT/ML VIAL SQ SCH ×3 (13:30→22:02)
[2022-09-05] MEDS: HEPARIN SOD,PORK IN 0.45% NACL 25,000 UNIT in 0.45% NACL 1 250ML.BAG IV SCH (13:35)
--- NOTE | 2022-09-05 14:15 | P.PN ---
Subjective Progress Note Date: 09/05/22 The patient is a pleasant 66-year-old female patient with a past medical history significant for diabetes and hypertension and dyslipidemia and carotid atherosclerosis who presented to the hospital complaining of a few days history of cough productive of sputum associated with headache. She just came from [place] a few days ago. She underwent further cardiac testing including COVID at [facility] and both came in to be unremarkable. She reports no pain in the chest and no shortness of breath and no dizziness or lightheadedness and no feeling of heart racing or fluttering and no presyncope or syncope. We consulted to see the patient because she underwent troponin checked and that came in to be slightly elevated. The EKG showed sinus rhythm was sinus tachycardia when she presented to the hospital. D-dimer came in to be elevated subsequently CTA of the chest showed no evidence of pulmonary embolism. The chest x-ray showed findings consistent with a pneumonia. Infectious disease was consulted to see the patient and currently she is on antibiotic. The patient has no history of CAD and no history of revascularization but she does have carotid atherosclerosis and also she does have diabetes and hypertension and dyslipidemia. She does not smoke. No significant family history of coronary artery disease. Currently she is on heparin. Beside that she is on beta galilea with Toprol-XL. Also she is on statin. The examination is remarkable for stable vital signs with normal blood pressure and heart rate and regular rhythm with distant heart sounds and bilateral expiratory wheezing also noted on examination. She has no lower except his edema. She has no carotid bruit 09/05. Patient seen and examined. States she feels better. Denies any lightheadedness or dizziness. Vital signs stable REVIEW OF SYSTEMS: CONSTITUTIONAL: No fever, no malaise,. CARDIOVASCULAR: No chest pain, no palpitations, no syncope. PULMONARY: No shortness of breath, no cough, GASTROINTESTINAL: No diarrhea, no nausea, no vomiting, no abdominal pain. NEUROLOGICAL: No headaches, no weakness, PHYSICAL EXAMINATION: GENERAL: The patient is alert and oriented x3, not in any acute distress. Well developed, well nourished. HEENT: Pupils are round and equally reacting to light. EOMI. No scleral icterus. No conjunctival pallor. Normocephalic, atraumatic. No pharyngeal erythema. No thyromegaly. CARDIOVASCULAR: S1 and S2 present. No murmurs, rubs, or gallops. PULMONARY: Chest is clear to auscultation, no wheezing or crackles. ABDOMEN: Soft, nontender, nondistended, normoactive bowel sounds. No palpable organomegaly. MUSCULOSKELETAL: No joint swelling or deformity. EXTREMITIES: No cyanosis, clubbing, or pedal edema. NEUROLOGICAL: Gross neurological examination did not reveal any focal deficits. SKIN: No rashes. Assessment and plan Bacterial pneumonia Symptoms of cough productive of sputum concerning for a pneumonia Evidence of myocardial injury was no evidence of ischemia clinically. Headache and body ache concerning for viral infection Multiple risk factors including hypertension and dyslipidemia and diabetes Carotid atherosclerosis Sinus tachycardia which has improved Asthma Diabetes Hypertension Plan; Monitor vital signs Monitor CBC Monitor CMP Continue telemetry monitoring Continue the heparin for additional 24 hours Add aspirin to the current medical regimen Continue beta galilea and statin Further risk stratification including echocardiogram to assess the ejection fraction and for any wall motion abnormalities concerning for severe CAD. Continue doxycycline,Rocephin and azithromycin Follow-up in ID recommendations DVT prophylaxis: Objective - Vital Signs Vital signs: Vital Signs Temp 97.8 F 09/05/22 04:00 Pulse 96 09/05/22 04:00 Resp 18 09/05/22 04:00 BP 116/74 09/05/22 04:00 Pulse Ox 94 L 09/05/22 04:00 FiO2 Intake & Output 09/04/22 09/05/22 09/05/22 18:59 06:59 18:59 Intake Total 180 Balance 180 Weight 90.718 kg 91.2 kg Intake: Oral 180 Other: # Voids 1 - Labs CBC & Chem 7: 09/05/22 07:27 09/05/22 07:27 Labs: Abnormal Lab Results - Last 24 Hours (Table) 09/04/22 09/04/22 09/04/22 Range/Units 10:22 10:22 10:22 RBC (3.80-5.40) m/uL Hgb (11.4-16.0) gm/dL Hct (34.0-46.0) % Lymphocytes # 0.7 L (1.0-4.8) k/uL APTT (22.0-30.0) sec D-Dimer 2.22 H (<0.60) mg/L FEU Sodium 133 L (137-145) mmol/L BUN (7-17) mg/dL Glucose 191 H (74-99) mg/dL POC Glucose (mg/dL) (70-110) mg/dL Calcium (8.4-10.2) mg/dL Troponin I (0.000-0.034) ng/mL C-Reactive Protein (<1.0) mg/dL Total Protein 8.4 H (6.3-8.2) g/dL Albumin (3.5-5.0) g/dL Procalcitonin (0.02-0.09) ng/mL Ur Specific [place] (1.001-1.035) Urine Protein (Negative) Urine Glucose (UA) (Negative) Urine Ketones (Negative) Urine Blood (Negative) Ur Leukocyte Esterase (Negative) Urine RBC (0-5) /hpf Urine Mucus (None) /hpf 09/04/22 09/04/22 09/04/22 Range/Units 10:22 11:25 14:57 RBC (3.80-5.40) m/uL Hgb (11.4-16.0) gm/dL Hct (34.0-46.0) % Lymphocytes # (1.0-4.8) k/uL APTT (22.0-30.0) sec D-Dimer (<0.60) mg/L FEU Sodium (137-145) mmol/L BUN (7-17) mg/dL Glucose (74-99) mg/dL POC Glucose (mg/dL) 158 H (70-110) mg/dL Calcium (8.4-10.2) mg/dL Troponin I 0.410 H* (0.000-0.034) ng/mL C-Reactive Protein (<1.0) mg/dL Total Protein (6.3-8.2) g/dL Albumin (3.5-5.0) g/dL Procalcitonin (0.02-0.09) ng/mL Ur Specific [place] >1.050 H (1.001-1.035) Urine Protein 1+ H (Negative) Urine Glucose (UA) 1+ H (Negative) Urine Ketones 1+ H (Negative) Urine Blood Moderate H (Negative) Ur Leukocyte Esterase Small H (Negative) Urine RBC 16 H (0-5) /hpf Urine Mucus Occasional H (None) /hpf 09/04/22 09/04/22 09/04/22 Range/Units 16:15 16:15 16:15 RBC (3.80-5.40) m/uL Hgb (11.4-16.0) gm/dL Hct (34.0-46.0) % Lymphocytes # (1.0-4.8) k/uL APTT 68.9 H (22.0-30.0) sec D-Dimer (<0.60) mg/L FEU Sodium (137-145) mmol/L BUN (7-17) mg/dL Glucose (74-99) mg/dL POC Glucose (mg/dL) (70-110) mg/dL Calcium (8.4-10.2) mg/dL Troponin I 0.236 H* (0.000-0.034) ng/mL C-Reactive Protein 7.1 H (<1.0) mg/dL Total Protein (6.3-8.2) g/dL Albumin (3.5-5.0) g/dL Procalcitonin (0.02-0.09) ng/mL Ur Specific [place] (1.001-1.035) Urine Protein (Negative) Urine Glucose (UA) (Negative) Urine Ketones (Negative) Urine Blood (Negative) Ur Leukocyte Esterase (Negative) Urine RBC (0-5) /hpf Urine Mucus (None) /hpf 09/04/22 09/04/22 09/04/22 Range/Units 16:15 19:33 20:25 RBC (3.80-5.40) m/uL Hgb (11.4-16.0) gm/dL Hct (34.0-46.0) % Lymphocytes # (1.0-4.8) k/uL APTT (22.0-30.0) sec D-Dimer (<0.60) mg/L FEU Sodium (137-145) mmol/L BUN (7-17) mg/dL Glucose (74-99) mg/dL POC Glucose (mg/dL) 159 H (70-110) mg/dL Calcium (8.4-10.2) mg/dL Troponin I 0.150 H* (0.000-0.034) ng/mL C-Reactive Protein (<1.0) mg/dL Total Protein (6.3-8.2) g/dL Albumin (3.5-5.0) g/dL Procalcitonin 0.28 H (0.02-0.09) ng/mL Ur Specific [place] (1.001-1.035) Urine Protein (Negative) Urine Glucose (UA) (Negative) Urine Ketones (Negative) Urine Blood (Negative) Ur Leukocyte Esterase (Negative) Urine RBC (0-5) /hpf Urine Mucus (None) /hpf 09/05/22 09/05/22 09/05/22 Range/Units 06:16 07:27 07:27 RBC 3.42 L (3.80-5.40) m/uL Hgb 10.8 L (11.4-16.0) gm/dL Hct 32.8 L (34.0-46.0) % Lymphocytes # (1.0-4.8) k/uL APTT (22.0-30.0) sec D-Dimer (<0.60) mg/L FEU Sodium 132 L (137-145) mmol/L BUN 20 H (7-17) mg/dL Glucose 140 H (74-99) mg/dL POC Glucose (mg/dL) 135 H (70-110) mg/dL Calcium 7.9 L (8.4-10.2) mg/dL Troponin I (0.000-0.034) ng/mL C-Reactive Protein (<1.0) mg/dL Total Protein (6.3-8.2) g/dL Albumin 3.1 L (3.5-5.0) g/dL Procalcitonin (0.02-0.09) ng/mL Ur Specific [place] (1.001-1.035) Urine Protein (Negative) Urine Glucose (UA) (Negative) Urine Ketones (Negative) Urine Blood (Negative) Ur Leukocyte Esterase (Negative) Urine RBC (0-5) /hpf Urine Mucus (None) /hpf
--- NOTE | 2022-09-05 14:38 | P.PN ---
Subjective Progress Note Date: 09/05/22 Principal diagnosis: Pneumonia Patient is a 66-year-old female with a past medical history significant for hypertension osteoarthritis diabetes mellitus and asthma recently coming back from a 10-day cruise trip including visit to the [place] patient came back 2 weeks ago about 4 days before presentation to the hospital the patient started getting sick started with body aches did have a headache cough with yellow sputum patient CT chest did shows interstitial infiltrate concerning for pneumonia on today's evaluation that is 09/05/2022, the patient is afebrile, the patient is breathing comfortably on room air. The patient denies having any chest pain, cough is decreased intensity and no nausea no vomiting no abdominal pain no diarrhea Objective - Vital Signs Vital signs: Vital Signs Temp 97.7 F 09/05/22 08:00 Pulse 88 09/05/22 12:36 Resp 18 09/05/22 08:00 BP 108/70 09/05/22 08:00 Pulse Ox 91 L 09/05/22 08:00 FiO2 Intake & Output 09/04/22 09/05/22 09/05/22 18:59 06:59 18:59 Intake Total 180 290 Balance 180 290 Weight 90.718 kg 91.2 kg Intake: Intake, IV Titration 50 Amount cefTRIAXone 1 gm In 50 Sodium Chloride 0.9% 50 ml @ 100 mls/hr IVPB DAILY [facility] Rx#:[id number] Oral 180 240 Other: # Voids 1 1 - Exam GENERAL DESCRIPTION: An elderly female lying in bed in no distress RESPIRATORY SYSTEM: Unlabored breathing , decreased breath sounds at bases HEART: S1 S2 regular rate and rhythm , ABDOMEN: Soft , no tenderness EXTREMITIES: No edema feet - Labs CBC & Chem 7: 09/05/22 07:27 09/05/22 07:27 Labs: Abnormal Lab Results - Last 24 Hours (Table) 09/04/22 09/04/22 09/04/22 Range/Units 14:57 16:15 16:15 RBC (3.80-5.40) m/uL Hgb (11.4-16.0) gm/dL Hct (34.0-46.0) % APTT 68.9 H (22.0-30.0) sec Sodium (137-145) mmol/L BUN (7-17) mg/dL Glucose (74-99) mg/dL POC Glucose (mg/dL) (70-110) mg/dL Hemoglobin A1c (0.0-6.0) % Calcium (8.4-10.2) mg/dL Troponin I 0.236 H* (0.000-0.034) ng/mL C-Reactive Protein (<1.0) mg/dL Albumin (3.5-5.0) g/dL Procalcitonin (0.02-0.09) ng/mL Ur Specific [place] >1.050 H (1.001-1.035) Urine Protein 1+ H (Negative) Urine Glucose (UA) 1+ H (Negative) Urine Ketones 1+ H (Negative) Urine Blood Moderate H (Negative) Ur Leukocyte Esterase Small H (Negative) Urine RBC 16 H (0-5) /hpf Urine Mucus Occasional H (None) /hpf 09/04/22 09/04/22 09/04/22 Range/Units 16:15 16:15 19:33 RBC (3.80-5.40) m/uL Hgb (11.4-16.0) gm/dL Hct (34.0-46.0) % APTT (22.0-30.0) sec Sodium (137-145) mmol/L BUN (7-17) mg/dL Glucose (74-99) mg/dL POC Glucose (mg/dL) (70-110) mg/dL Hemoglobin A1c (0.0-6.0) % Calcium (8.4-10.2) mg/dL Troponin I 0.150 H* (0.000-0.034) ng/mL C-Reactive Protein 7.1 H (<1.0) mg/dL Albumin (3.5-5.0) g/dL Procalcitonin 0.28 H (0.02-0.09) ng/mL Ur Specific [place] (1.001-1.035) Urine Protein (Negative) Urine Glucose (UA) (Negative) Urine Ketones (Negative) Urine Blood (Negative) Ur Leukocyte Esterase (Negative) Urine RBC (0-5) /hpf Urine Mucus (None) /hpf 09/04/22 09/05/22 09/05/22 Range/Units 20:25 06:16 07:27 RBC 3.42 L (3.80-5.40) m/uL Hgb 10.8 L (11.4-16.0) gm/dL Hct 32.8 L (34.0-46.0) % APTT (22.0-30.0) sec Sodium (137-145) mmol/L BUN (7-17) mg/dL Glucose (74-99) mg/dL POC Glucose (mg/dL) 159 H 135 H (70-110) mg/dL Hemoglobin A1c (0.0-6.0) % Calcium (8.4-10.2) mg/dL Troponin I (0.000-0.034) ng/mL C-Reactive Protein (<1.0) mg/dL Albumin (3.5-5.0) g/dL Procalcitonin (0.02-0.09) ng/mL Ur Specific [place] (1.001-1.035) Urine Protein (Negative) Urine Glucose (UA) (Negative) Urine Ketones (Negative) Urine Blood (Negative) Ur Leukocyte Esterase (Negative) Urine RBC (0-5) /hpf Urine Mucus (None) /hpf 09/05/22 09/05/22 09/05/22 Range/Units 07:27 07:27 11:41 RBC (3.80-5.40) m/uL Hgb (11.4-16.0) gm/dL Hct (34.0-46.0) % APTT (22.0-30.0) sec Sodium 132 L (137-145) mmol/L BUN 20 H (7-17) mg/dL Glucose 140 H (74-99) mg/dL POC Glucose (mg/dL) 170 H (70-110) mg/dL Hemoglobin A1c 8.5 H (0.0-6.0) % Calcium 7.9 L (8.4-10.2) mg/dL Troponin I (0.000-0.034) ng/mL C-Reactive Protein (<1.0) mg/dL Albumin 3.1 L (3.5-5.0) g/dL Procalcitonin (0.02-0.09) ng/mL Ur Specific [place] (1.001-1.035) Urine Protein (Negative) Urine Glucose (UA) (Negative) Urine Ketones (Negative) Urine Blood (Negative) Ur Leukocyte Esterase (Negative) Urine RBC (0-5) /hpf Urine Mucus (None) /hpf Assessment and Plan (1) Pneumonia Current Visit: Yes Status: Acute Code(s): J18.9 - PNEUMONIA, UNSPECIFIED ORGANISM SNOMED Code(s): 177028155 Plan: 1patient presented to hospital with increasing shortness of breath cough with yellow sputum with decision elevated concerning for possible pneumonia questionable atypical pathogen in this patient with recent cruise trip to the [place] 2we will obtain sputum for Gram stain and culture, urine for Legionella antigen was negative, check a procalcitonin and CRP, and currently pending 3patient to continue with Rocephin and doxycycline, monitor clinical course closely Time with Patient: Less than 30
[2022-09-05 16:41] LABS: Glucose,Whole Blood 186 mg/dL (70-110)
[2022-09-05 20:36] LABS: Glucose,Whole Blood 205 mg/dL (70-110)
[2022-09-05] MEDS: INSULIN DETEMIR (LEVEMIR) 100 UNIT/ML SYR SQ SCH (22:03)
[2022-09-06 05:43] LABS: Mycoplasma IgG Antibody (EIA) 1.44 INDEX (<=0.90); Mycoplasma IgM Antibody 0.25 INDEX (<=0.90)
[2022-09-06] MEDS: LEVOTHYROXINE 50 MCG TAB PO SCH (06:44)
[2022-09-06 06:50] LABS: Glucose,Whole Blood 78 mg/dL (70-110)
[2022-09-06] MEDS: INSULIN ASPART (NovoLOG) 100 UNIT/ML VIAL SQ SCH ×4 (07:12→23:01)
[2022-09-06] MEDS: ALBUTEROL NEBULIZED 2.5 MG/3 ML INHALATION PRN (07:34)
[2022-09-06] MEDS: ATORVASTATIN 20 MG TAB PO SCH (09:21)
[2022-09-06] MEDS: CITALOPRAM HYDROBROMIDE 20 MG TAB PO SCH (09:21)
[2022-09-06] MEDS: DOXYCYCLINE 100 MG CAP PO SCH ×2 (09:21→23:02)
[2022-09-06] MEDS: FOLIC ACID 1 MG TAB PO SCH (09:21)
[2022-09-06] MEDS: FAMOTIDINE 20 MG TAB PO SCH (09:21)
[2022-09-06] MEDS: ASPIRIN 81 MG PO SCH (09:21)
[2022-09-06] MEDS: DAPAGLIFLOZIN PROPANEDIOL 5 MG TABLET PO SCH (09:21)
[2022-09-06] MEDS: HYDROXYCHLOROQUINE SULFATE 200 MG TAB PO SCH ×2 (09:21→23:02)
[2022-09-06] MEDS: METOPROLOL SUCCINATE (ER) 25 MG TAB.ER.24H PO SCH (09:21)
[2022-09-06 09:37] LABS: HCT 34.9 % (34.0-46.0); HGB 11.5 gm/dL (11.4-16.0); MCH 31.6 pg (25.0-35.0); MCHC 32.9 g/dL (31.0-37.0); MCV 95.9 fL (80.0-100.0); Mean Platelet Volume 9.1; Platelet Count 325 k/uL (150-450); RBC 3.63 m/uL (3.80-5.40); RDW 14.5 % (11.5-15.5); WBC 7.4 k/uL (3.8-10.6)
[2022-09-06 09:51] LABS: ALT 16 U/L (4-34); AST 24 U/L (14-36); African American GFR (CKD) >90 (>60 ml/min/1.73 sqM); Albumin 3.5 g/dL (3.5-5.0); Alkaline Phosphatase 76 U/L (38-126); Anion Gap 11 mmol/L; Blood Urea Nitrogen 19 mg/dL (7-17); Calcium 8.8 mg/dL (8.4-10.2); Carbon Dioxide 22 mmol/L (22-30); Chloride 104 mmol/L (98-107); Glucose 137 mg/dL (74-99); Non-African American GFR(CKD) 78 (>60 ml/min/1.73 sqM); Potassium 4.5 mmol/L (3.5-5.1); Sodium 137 mmol/L (137-145); Total Bilirubin 0.5 mg/dL (0.2-1.3); Total Protein 7.9 g/dL (6.3-8.2)
[2022-09-06 11:54] LABS: Glucose,Whole Blood 94 mg/dL (70-110)
[2022-09-06] MEDS: HEPARIN SOD,PORK IN 0.45% NACL 25,000 UNIT in 0.45% NACL 1 250ML.BAG IV SCH (13:02)
--- NOTE | 2022-09-06 13:49 | CA ---
Transthoracic Echo Report Name: Ruthie Glez Age: 66 Gender: F : 1955 Exam Date: 09/06/2022 12:06 Exam Location: [facility] Ht (in): 63 Wt (lb): 201 Ordering Physician: Naomy Castaneda MD Attending/Referring Phys: [employer] Hustler Halley Viera RDCS Procedure CPT: Indications: high trops Cardiac Hx: Technical Quality: Technically difficult study Contrast 1: Lumason Total Dose (mL): 4 Contrast 2: Total Dose (mL): MEASUREMENTS (Male / Female) Normal Values 2D ECHO LV Diastolic Diameter PLAX 4.5 cm 4.2 - 5.9 / 3.9 - 5.3 cm LV Systolic Diameter PLAX 4.2 cm IVS Diastolic Thickness 1.4 cm 0.6 - 1.0 / 0.6 - 0.9 cm LVPW Diastolic Thickness 1.3 cm 0.6 - 1.0 / 0.6 - 0.9 cm LV Relative Wall Thickness 0.6 LV Diastolic Volume MOD BP 68.2 cm??? 67 - 155 / 56 - 104 cm??? LV Systolic Volume MOD BP 35.7 cm??? 22 - 58 / 19 - 49 cm??? LV Ejection Fraction MOD BP 47.6 % >= 55 % LV Cardiac Index MOD BP 1311.3 cm???/min???m??? LV Diastolic Volume MOD 4C 67.3 cm??? LV Systolic Volume MOD 4C 36.1 cm??? LV Ejection Fraction MOD 4C 46.3 % LV Cardiac Index MOD 4C 1259.3 cm???/min???m??? LV Diastolic Length 4C 7.0 cm LV Systolic Length 4C 5.9 cm LV Diastolic Volume MOD 2C 66.3 cm??? LV Systolic Volume MOD 2C 30.7 cm??? LV Ejection Fraction MOD 2C 53.6 % LV Cardiac Index MOD 2C 1435.9 cm???/min???m??? LV Diastolic Length 2C 7.4 cm LV Systolic Length 2C 6.9 cm LA Volume 42.4 cm??? 18 - 58 / 22 - 52 cm??? M-MODE Aortic Root Diameter MM 2.9 cm AV Cusp Separation MM 2.3 cm DOPPLER AV Peak Velocity 139.4 cm/s AV Peak Gradient 7.8 mmHg AV Mean Velocity 101.6 cm/s AV Mean Gradient 4.5 mmHg AV Velocity Time Integral 26.7 cm LVOT Peak Velocity 90.8 cm/s LVOT Peak Gradient 3.3 mmHg LVOT Velocity Time Integral 20.2 cm MV Area PHT 4.1 cm??? Mitral E Point Velocity 64.8 cm/s Mitral A Point Velocity 80.1 cm/s Mitral E to A Ratio 0.8 MV Deceleration Time 187.3 ms TR Peak Velocity 177.9 cm/s TR Peak Gradient 12.7 mmHg Right Ventricular Systolic Press 17.7 mmHg FINDINGS Left Ventricle Moderately increased left ventricular wall thickness. Mildly decreased left ventricular ejection fraction.left ventricular cavity size normal. Left ventricular ejection fraction is estimated at 45-50 %. Right Ventricle Normal right ventricular size and function. Right ventricular systolic pressure within normal limits. Right Atrium Normal right atrial size. Left Atrium Normal left atrial size. Mitral Valve Structurally normal mitral valve. Aortic Valve No aortic valve stenosis or regurgitation. Tricuspid Valve Structurally normal tricuspid valve. Mild tricuspid regurgitation. Pulmonic Valve Structurally normal pulmonic valve. Pericardium No pericardial effusion. Aorta Normal size aortic root and proximal ascending aorta. CONCLUSIONS Moderate increased left ventricular wall thickness Left ventricular ejection fraction 45-50% Mild tricuspid regurgitation No pericardial effusion Previewed by: Dr. David Shanks DO (Electronically Signed) Final Date: 06 September 2022 13:48
--- NOTE | 2022-09-06 14:14 | P.PN ---
Subjective Progress Note Date: 09/06/22 The patient is a pleasant 66-year-old female patient with a past medical history significant for diabetes and hypertension and dyslipidemia and carotid atherosclerosis who presented to the hospital complaining of a few days history of cough productive of sputum associated with headache. She just came from [place] a few days ago. She underwent further cardiac testing including COVID at [facility] and both came in to be unremarkable. She reports no pain in the chest and no shortness of breath and no dizziness or lightheadedness and no feeling of heart racing or fluttering and no presyncope or syncope. We consulted to see the patient because she underwent troponin checked and that came in to be slightly elevated. The EKG showed sinus rhythm was sinus tachycardia when she presented to the hospital. D-dimer came in to be elevated subsequently CTA of the chest showed no evidence of pulmonary embolism. The chest x-ray showed findings consistent with a pneumonia. Infectious disease was consulted to see the patient and currently she is on antibiotic. The patient has no history of CAD and no history of revascularization but she does have carotid atherosclerosis and also she does have diabetes and hypertension and dyslipidemia. She does not smoke. No significant family history of coronary artery disease. Currently she is on heparin. Beside that she is on beta galilea with Toprol-XL. Also she is on statin. The examination is remarkable for stable vital signs with normal blood pressure and heart rate and regular rhythm with distant heart sounds and bilateral expiratory wheezing also noted on examination. She has no lower except his edema. She has no carotid bruit 09/06 She denies having any chest pain or shortness of breath. Patient's heart rate has been running in the 80s and 90s, blood pressure 120/71. Telemetry is sinus rhythm. Repeat blood work reveals WBC 7.4, hemoglobin 11.5, BUN 19 creatinine 0.79, potassium 4.5. Patient is anxious to be discharged home today. Echocardiogram reveals EF of 45-50%, moderate increased left ventricular wall thickness, mild tricuspid regurgitation, no pericardial effusion. Echocardiogram 11/2019: EF 45-50% with mild concentric left ventricular hypertrophy, mild mitral regurgitation, mild tricuspid regurgitation, borderline pulmonary hypertension. Physical Examination Gen: This is a 66-year-old female. She is resting in bed and appears to be in no acute distress. HEENT: Head is atraumatic, normocephalic. Pupils equal, round. Sclerae is anicteric. NECK: Supple. No JVD. No lymphadenopathy. No thyromegaly. LUNGS: Essentially clear. No intercostal retractions. HEART: Regular rate and rhythm. No murmur. ABDOMEN: Soft. EXTREMITIES: No pedal edema. No calf tenderness. NEUROLOGICAL: Patient is awake, alert and oriented x3. Assessment Symptoms of cough productive of sputum concerning for a pneumonia Evidence of myocardial injury with no evidence of ischemia clinically. Headache and body ache concerning for viral infection Multiple risk factors including hypertension and dyslipidemia and diabetes Carotid atherosclerosis Sinus tachycardia which has improved Plan Discontinue heparin drip Continue patient's current cardiac medications Patient is cleared from cardiology for discharge home. Patient may follow up with Dr. Chew and 1-2 weeks. Nurse practitioner note has been reviewed, I agree with the documented findings and plan of care. Patient was seen and examined. Objective - Vital Signs Vital signs: Vital Signs Temp 97.8 F 09/06/22 04:00 Pulse 80 09/06/22 07:45 Resp 18 09/06/22 04:00 BP 140/72 09/06/22 04:00 Pulse Ox 96 09/06/22 04:00 FiO2 Intake & Output 09/05/22 09/06/22 09/06/22 18:59 06:59 18:59 Intake Total 886 Output Total 200 Balance 886 -200 Intake: Intake, IV Titration 290 Amount Heparin Sod,Pork in 0.45% 240 NaCl 25,000 unit In 0.45 % NaCl 1 250ml.bag @ 11. 023 UNITS/KG/HR 10 mls/hr IV .Q24H [facility] Rx#: [id number] cefTRIAXone 1 gm In 50 Sodium Chloride 0.9% 50 ml @ 100 mls/hr IVPB DAILY [facility] Rx#:[id number] Oral 596 Output: Urine 200 Other: # Voids 1 1 - Labs CBC & Chem 7: 09/06/22 07:53 09/06/22 07:53 Labs: Abnormal Lab Results - Last 24 Hours (Table) 09/04/22 09/05/22 09/05/22 Range/Units 10:22 07:27 11:41 RBC (3.80-5.40) m/uL BUN (7-17) mg/dL Glucose (74-99) mg/dL POC Glucose (mg/dL) 170 H (70-110) mg/dL Hemoglobin A1c 8.5 H (0.0-6.0) % Mycoplasma pneumon IgG 1.44 H (<=0.90) INDEX 09/05/22 09/05/22 09/06/22 Range/Units 16:39 20:35 07:53 RBC 3.63 L (3.80-5.40) m/uL BUN (7-17) mg/dL Glucose (74-99) mg/dL POC Glucose (mg/dL) 186 H 205 H (70-110) mg/dL Hemoglobin A1c (0.0-6.0) % Mycoplasma pneumon IgG (<=0.90) INDEX 09/06/22 Range/Units 07:53 RBC (3.80-5.40) m/uL BUN 19 H (7-17) mg/dL Glucose 137 H (74-99) mg/dL POC Glucose (mg/dL) (70-110) mg/dL Hemoglobin A1c (0.0-6.0) % Mycoplasma pneumon IgG (<=0.90) INDEX Microbiology - Last 24 Hours (Table) 09/05/22 16:29 Gram Stain - Preliminary Sputum Sputum Culture - Preliminary 09/04/22 13:30 Blood Culture - Preliminary Blood No Growth after 24 hours 09/04/22 13:20 Blood Culture - Preliminary Blood No Growth after 24 hours
--- NOTE | 2022-09-06 15:38 | P.PN ---
Subjective Progress Note Date: 09/06/22 The patient is a pleasant 66-year-old female patient with a past medical history significant for diabetes and hypertension and dyslipidemia and carotid atherosclerosis who presented to the hospital complaining of a few days history of cough productive of sputum associated with headache. She just came from [place] a few days ago. She underwent further cardiac testing including COVID at [facility] and both came in to be unremarkable. She reports no pain in the chest and no shortness of breath and no dizziness or lightheadedness and no feeling of heart racing or fluttering and no presyncope or syncope. We consulted to see the patient because she underwent troponin checked and that came in to be slightly elevated. The EKG showed sinus rhythm was sinus tachycardia when she presented to the hospital. D-dimer came in to be elevated subsequently CTA of the chest showed no evidence of pulmonary embolism. The chest x-ray showed findings consistent with a pneumonia. Infectious disease was consulted to see the patient and currently she is on antibiotic. The patient has no history of CAD and no history of revascularization but she does have carotid atherosclerosis and also she does have diabetes and hypertension and dyslipidemia. She does not smoke. No significant family history of coronary artery disease. Currently she is on heparin. Beside that she is on beta galilea with Toprol-XL. Also she is on statin. The examination is remarkable for stable vital signs with normal blood pressure and heart rate and regular rhythm with distant heart sounds and bilateral expiratory wheezing also noted on examination. She has no lower except his edema. She has no carotid bruit 09/05. Patient seen and examined. States she feels better. Denies any lightheadedness or dizziness. Vital signs stable 09/06. Patient seen and examined. States shortness of breath is improving. still complaining of cough. Vital signs stable REVIEW OF SYSTEMS: CONSTITUTIONAL: No fever, no malaise,. CARDIOVASCULAR: No chest pain, no palpitations, no syncope. PULMONARY: No shortness of breath, no cough, GASTROINTESTINAL: No diarrhea, no nausea, no vomiting, no abdominal pain. NEUROLOGICAL: No headaches, no weakness, PHYSICAL EXAMINATION: GENERAL: The patient is alert and oriented x3, not in any acute distress. Well developed, well nourished. HEENT: Pupils are round and equally reacting to light. EOMI. No scleral icterus. No conjunctival pallor. Normocephalic, atraumatic. No pharyngeal erythema. No thyromegaly. CARDIOVASCULAR: S1 and S2 present. No murmurs, rubs, or gallops. PULMONARY: Chest is clear to auscultation, no wheezing or crackles. ABDOMEN: Soft, nontender, nondistended, normoactive bowel sounds. No palpable organomegaly. MUSCULOSKELETAL: No joint swelling or deformity. EXTREMITIES: No cyanosis, clubbing, or pedal edema. NEUROLOGICAL: Gross neurological examination did not reveal any focal deficits. SKIN: No rashes. Assessment and plan Bacterial pneumonia Symptoms of cough productive of sputum concerning for a pneumonia Evidence of myocardial injury was no evidence of ischemia clinically. Headache and body ache concerning for viral infection Multiple risk factors including hypertension and dyslipidemia and diabetes Carotid atherosclerosis Sinus tachycardia which has improved Asthma Diabetes Hypertension Plan; Monitor vital signs Monitor CBC Monitor CMP Continue telemetry monitoring DC heparin Continue beta galilea and statin Further risk stratification including echocardiogram to assess the ejection fraction and for any wall motion abnormalities concerning for severe CAD. Continue doxycycline,Rocephin and azithromycin Follow-up in ID recommendations Possible discharge in next 24 hours DVT prophylaxis: Objective - Vital Signs Vital signs: Vital Signs Temp 97.8 F 09/06/22 04:00 Pulse 80 09/06/22 07:45 Resp 18 09/06/22 04:00 BP 140/72 09/06/22 04:00 Pulse Ox 96 09/06/22 04:00 FiO2 Intake & Output 09/05/22 09/06/22 09/06/22 18:59 06:59 18:59 Intake Total 886 Output Total 200 Balance 886 -200 Intake: Intake, IV Titration 290 Amount Heparin Sod,Pork in 0.45% 240 NaCl 25,000 unit In 0.45 % NaCl 1 250ml.bag @ 11. 023 UNITS/KG/HR 10 mls/hr IV .Q24H [facility] Rx#: [id number] cefTRIAXone 1 gm In 50 Sodium Chloride 0.9% 50 ml @ 100 mls/hr IVPB DAILY [facility] Rx#:[id number] Oral 596 Output: Urine 200 Other: # Voids 1 1 - Labs CBC & Chem 7: 09/06/22 07:53 09/06/22 07:53 Labs: Abnormal Lab Results - Last 24 Hours (Table) 09/04/22 09/05/22 09/05/22 Range/Units 10:22 07:27 11:41 RBC (3.80-5.40) m/uL BUN (7-17) mg/dL Glucose (74-99) mg/dL POC Glucose (mg/dL) 170 H (70-110) mg/dL Hemoglobin A1c 8.5 H (0.0-6.0) % Mycoplasma pneumon IgG 1.44 H (<=0.90) INDEX 09/05/22 09/05/22 09/06/22 Range/Units 16:39 20:35 07:53 RBC 3.63 L (3.80-5.40) m/uL BUN (7-17) mg/dL Glucose (74-99) mg/dL POC Glucose (mg/dL) 186 H 205 H (70-110) mg/dL Hemoglobin A1c (0.0-6.0) % Mycoplasma pneumon IgG (<=0.90) INDEX 09/06/22 Range/Units 07:53 RBC (3.80-5.40) m/uL BUN 19 H (7-17) mg/dL Glucose 137 H (74-99) mg/dL POC Glucose (mg/dL) (70-110) mg/dL Hemoglobin A1c (0.0-6.0) % Mycoplasma pneumon IgG (<=0.90) INDEX Microbiology - Last 24 Hours (Table) 09/05/22 16:29 Gram Stain - Preliminary Sputum Sputum Culture - Preliminary 09/04/22 13:30 Blood Culture - Preliminary Blood No Growth after 24 hours 09/04/22 13:20 Blood Culture - Preliminary Blood No Growth after 24 hours
[2022-09-06 16:38] LABS: Glucose,Whole Blood 149 mg/dL (70-110)
--- NOTE | 2022-09-06 18:51 | P.PN ---
Subjective Progress Note Date: 09/06/22 Principal diagnosis: Pneumonia Patient is a 66-year-old female with a past medical history significant for hypertension osteoarthritis diabetes mellitus and asthma recently coming back from a 10-day cruise trip including visit to the [place] patient came back 2 weeks ago about 4 days before presentation to the hospital the patient started getting sick started with body aches did have a headache cough with yellow sputum patient CT chest did shows interstitial infiltrate concerning for pneumonia on today's evaluation that is 09/06/2022, the patient remains to be afebrile, the patient is breathing comfortably on room air. The patient denies having any chest pain, the patient cough has decreased intensity and less productive, no nausea no vomiting no abdominal pain no diarrhea Objective - Vital Signs Vital signs: Vital Signs Temp 97.3 F L 09/06/22 08:45 Pulse 95 09/06/22 08:45 Resp 18 09/06/22 08:45 BP 120/71 09/06/22 08:45 Pulse Ox 94 L 09/06/22 08:45 FiO2 Intake & Output 09/05/22 09/06/22 09/06/22 18:59 06:59 18:59 Intake Total 886 Output Total 200 Balance 886 -200 Intake: Intake, IV Titration 290 Amount Heparin Sod,Pork in 0.45% 240 NaCl 25,000 unit In 0.45 % NaCl 1 250ml.bag @ 11. 023 UNITS/KG/HR 10 mls/hr IV .Q24H [facility] Rx#: [id number] cefTRIAXone 1 gm In 50 Sodium Chloride 0.9% 50 ml @ 100 mls/hr IVPB DAILY [facility] Rx#:[id number] Oral 596 Output: Urine 200 Other: # Voids 1 1 - Exam GENERAL DESCRIPTION: An elderly female lying in bed in no distress RESPIRATORY SYSTEM: Unlabored breathing , decreased breath sounds at bases HEART: S1 S2 regular rate and rhythm , ABDOMEN: Soft , no tenderness EXTREMITIES: No edema feet - Labs CBC & Chem 7: 09/06/22 07:53 09/06/22 07:53 Labs: Abnormal Lab Results - Last 24 Hours (Table) 09/04/22 09/05/22 09/05/22 Range/Units 10:22 16:39 20:35 RBC (3.80-5.40) m/uL BUN (7-17) mg/dL Glucose (74-99) mg/dL POC Glucose (mg/dL) 186 H 205 H (70-110) mg/dL Mycoplasma pneumon IgG 1.44 H (<=0.90) INDEX 09/06/22 09/06/22 Range/Units 07:53 07:53 RBC 3.63 L (3.80-5.40) m/uL BUN 19 H (7-17) mg/dL Glucose 137 H (74-99) mg/dL POC Glucose (mg/dL) (70-110) mg/dL Mycoplasma pneumon IgG (<=0.90) INDEX Microbiology - Last 24 Hours (Table) 09/05/22 16:29 Gram Stain - Preliminary Sputum Sputum Culture - Preliminary 09/04/22 13:30 Blood Culture - Preliminary Blood No Growth after 24 hours 09/04/22 13:20 Blood Culture - Preliminary Blood No Growth after 24 hours Assessment and Plan (1) Pneumonia Current Visit: Yes Status: Acute Code(s): J18.9 - PNEUMONIA, UNSPECIFIED ORGANISM SNOMED Code(s): 896372241 Plan: 1patient presented to hospital with increasing shortness of breath cough with yellow sputum with decision elevated concerning for possible pneumonia questionable atypical pathogen in this patient with recent cruise trip to the [place] 2 sputum for Gram stain and culture currently pending, urine for Legionella antigen was negative, procalcitonin mildly elevated 0.28 and CRP 7.1 3patient seemed to have shown clinical improvement and will continue with Rocephin and doxycycline, monitor clinical course closely Time with Patient: Less than 30
[2022-09-06 20:15] LABS: Glucose,Whole Blood 234 mg/dL (70-110)
[2022-09-06] MEDS: INSULIN DETEMIR (LEVEMIR) 100 UNIT/ML SYR SQ SCH (23:03)
[2022-09-07] MEDS: LEVOTHYROXINE 50 MCG TAB PO SCH (06:19)
[2022-09-07 06:24] LABS: Glucose,Whole Blood 127 mg/dL (70-110)
[2022-09-07] MEDS: INSULIN ASPART (NovoLOG) 100 UNIT/ML VIAL SQ SCH ×2 (06:37→12:41)
[2022-09-07] MEDS: ALBUTEROL NEBULIZED 2.5 MG/3 ML INHALATION PRN (08:22)
[2022-09-07] MEDS: ACETAMINOPHEN TAB 325 MG TAB PO PRN (08:39)
[2022-09-07] MEDS: ASPIRIN 81 MG PO SCH (09:07)
[2022-09-07] MEDS: DOXYCYCLINE 100 MG CAP PO SCH (09:08)
[2022-09-07] MEDS: FAMOTIDINE 20 MG TAB PO SCH (09:08)
[2022-09-07] MEDS: CITALOPRAM HYDROBROMIDE 20 MG TAB PO SCH (09:08)
[2022-09-07] MEDS: FOLIC ACID 1 MG TAB PO SCH (09:08)
[2022-09-07] MEDS: HYDROXYCHLOROQUINE SULFATE 200 MG TAB PO SCH (09:09)
[2022-09-07] MEDS ORDERED: METOPROLOL SUCCINATE (ER) 100 MG TAB.ER.24H PO SCH (09:15)
[2022-09-07] MEDS: DAPAGLIFLOZIN PROPANEDIOL 5 MG TABLET PO SCH (09:36)
--- NOTE | 2022-09-07 11:15 | CDI ---
Documentation Clarification Form Date: 09/07/2022 10:57:51 AM From: Kimberly Altamirano Phone: Admit Date: 09/04/2022 2:23:00 PM Patient Name: Ruthie Glez Visit Number: [id number] Discharge Date: ATTENTION: The Clinical Documentation Specialists (CDI) and [facility] Coding Staff appreciate your assistance in clarifying documentation. Please respond to the clarification below the line at the bottom and electronically sign. The CDI & [facility] Coding staff will review the response and follow-up if needed. Please note: Queries are made part of the Legal Health Record. If you have any questions, please contact the author of this message via ITS. Dr. Naomy Castaneda Rule out acute mnx-VO-wfoqqrv-elevation myocardial infarction is documented in the H&P. Additional clarification is requested. History/Risk Factors: asthma, A-fib, DM, HTN. Recent travel to [place]. Presented with SOB, cough, sore throat and fever. Clinical Indicators: Troponins: 0.410-0.236-0.150 ED: "EKG shows sinus tachycardia with a ventricular rate of 125. Troponin is elevated at 0.410. Patient will be admitted with an NSTEMI and started on heparin." 09/04 H&P: "Troponin 0.410. Rule out acute uxo-YQ-boympgs-elevation myocardial infarction." 09/05 Cardiology consult: "Evidence of myocardial injury with no evidence of ischemia clinically." EKG Results: Sinus tachycardia Treatment: IV Heparin 09/04-09/06. IV antibiotics. 500ml IV bolus on 09/04. Is there an additional diagnosis and/or clinical significance related to the above lab result/information: [ ] NSTEMI [x ] Type 2 PA due to infection [ ] Non-ischemic myocardial injury [ ] No additional diagnosis/Not clinically significant [ ] Other, please specify [ ] Unable to determine MTDD
[2022-09-07 11:35] VITALS: BP 128/81; PULSE 78; RESP 14; TEMP 97.7
[2022-09-07 12:00] LABS: Glucose,Whole Blood 109 mg/dL (70-110)
--- NOTE | 2022-09-07 12:05 | P.PN ---
Subjective Progress Note Date: 09/07/22 The patient is a pleasant 66-year-old female patient with a past medical history significant for diabetes and hypertension and dyslipidemia and carotid atherosclerosis who presented to the hospital complaining of a few days history of cough productive of sputum associated with headache. She just came from [place] a few days ago. She underwent further cardiac testing including COVID at [facility] and both came in to be unremarkable. She reports no pain in the chest and no shortness of breath and no dizziness or lightheadedness and no feeling of heart racing or fluttering and no presyncope or syncope. We consulted to see the patient because she underwent troponin checked and that came in to be slightly elevated. The EKG showed sinus rhythm was sinus tachycardia when she presented to the hospital. D-dimer came in to be elevated subsequently CTA of the chest showed no evidence of pulmonary embolism. The chest x-ray showed findings consistent with a pneumonia. Infectious disease was consulted to see the patient and currently she is on antibiotic. The patient has no history of CAD and no history of revascularization but she does have carotid atherosclerosis and also she does have diabetes and hypertension and dyslipidemia. She does not smoke. No significant family history of coronary artery disease. Currently she is on heparin. Beside that she is on beta galilea with Toprol-XL. Also she is on statin. The examination is remarkable for stable vital signs with normal blood pressure and heart rate and regular rhythm with distant heart sounds and bilateral expiratory wheezing also noted on examination. She has no lower except his edema. She has no carotid bruit 09/06 She denies having any chest pain or shortness of breath. Patient's heart rate has been running in the 80s and 90s, blood pressure 120/71. Telemetry is sinus rhythm. Repeat blood work reveals WBC 7.4, hemoglobin 11.5, BUN 19 creatinine 0.79, potassium 4.5. Patient is anxious to be discharged home today. Echocardiogram reveals EF of 45-50%, moderate increased left ventricular wall thickness, mild tricuspid regurgitation, no pericardial effusion. Echocardiogram 11/2019: EF 45-50% with mild concentric left ventricular hypertrophy, mild mitral regurgitation, mild tricuspid regurgitation, borderline pulmonary hypertension. 09/07 Heart rate is running in the 80s, blood pressure 128/81, pulse ox 99% on room air.telemetry is a sinus rhythm. Physical Examination Gen: This is a 66-year-old female. She is resting in bed and appears to be in no acute distress. HEENT: Head is atraumatic, normocephalic. Pupils equal, round. Sclerae is anicteric. NECK: Supple. No JVD. No lymphadenopathy. No thyromegaly. LUNGS: Essentially clear. No intercostal retractions. HEART: Regular rate and rhythm. No murmur. ABDOMEN: Soft. EXTREMITIES: No pedal edema. No calf tenderness. NEUROLOGICAL: Patient is awake, alert and oriented x3. Assessment Symptoms of cough productive of sputum concerning for a pneumonia Evidence of myocardial injury with no evidence of ischemia clinically. Headache and body ache concerning for viral infection Multiple risk factors including hypertension and dyslipidemia and diabetes Carotid atherosclerosis Sinus tachycardia which has improved Plan Increase atorvastatin to 40 mg daily and increase the Toprol-XL to 100 milligrams daily Continue patient's current cardiac medications Patient is cleared from cardiology for discharge home. Patient may follow up with Dr. Chew in 1-2 weeks. Nurse practitioner note has been reviewed, I agree with the documented findings and plan of care. Patient was seen and examined. Objective - Vital Signs Vital signs: Vital Signs Temp 97.7 F 09/07/22 11:34 Pulse 78 09/07/22 11:34 Resp 14 09/07/22 11:34 BP 128/81 09/07/22 11:34 Pulse Ox 99 09/07/22 11:34 FiO2 Intake & Output 09/06/22 09/07/22 09/07/22 18:59 06:59 18:59 Intake Total 234.5 1020 Balance 234.5 1020 Weight 87.6 kg Intake: Intake, IV Titration 234.5 Amount Heparin Sod,Pork in 0.45% 234.5 NaCl 25,000 unit In 0.45 % NaCl 1 250ml.bag @ 11. 023 UNITS/KG/HR 10 mls/hr IV .Q24H [facility] Rx#: [id number] Oral 1020 Other: Voiding Method Toilet # Voids 1 2 # Bowel Movements 0 - Labs CBC & Chem 7: 09/06/22 07:53 09/06/22 07:53 Labs: Abnormal Lab Results - Last 24 Hours (Table) 09/06/22 09/06/22 09/07/22 Range/Units 16:36 20:14 06:23 POC Glucose (mg/dL) 149 H 234 H 127 H (70-110) mg/dL Microbiology - Last 24 Hours (Table) 09/05/22 16:29 Gram Stain - Final Sputum Sputum Culture - Final 09/04/22 13:30 Blood Culture - Preliminary Blood No Growth after 48 hours 09/04/22 13:20 Blood Culture - Preliminary Blood No Growth after 48 hours
--- NOTE | 2022-09-07 14:39 | P.DS ---
Providers Date of admission: 09/04/22 14:23 Expected date of discharge: 09/07/22 Attending physician: Naomy Castaneda Consults: 09/04/22 12:56 Consult Physician Routine Consulting Provider: Kobe Chew Consult Reason/Comments: NSTEMI Do you want consulting provider notified?: Yes, Notify in am 09/04/22 13:02 Consult Physician Routine Consulting Provider: Leslee Hancock Consult Reason/Comments: elevated dimer, trop, recent return from [place], per Dr Castaneda Do you want consulting provider notified?: Already Contacted Primary care physician: Lidia Felipe [facility] Course: Discharge diagnoses; Bacterial pneumonia Symptoms of cough productive of sputum concerning for a pneumonia Evidence of myocardial injury was no evidence of ischemia clinically. Headache and body ache concerning for viral infection Multiple risk factors including hypertension and dyslipidemia and diabetes Carotid atherosclerosis Sinus tachycardia which has improved Asthma Diabetes Hypertension Hospital course; The patient is a pleasant 66-year-old female patient with a past medical history significant for diabetes and hypertension and dyslipidemia and carotid atheros clerosis who presented to the hospital complaining of a few days history of cough productive of sputum associated with headache. She just came from [place] a few days ago. She underwent further cardiac testing including COVID at [facility] and both came in to be unremarkable. She reports no pain in the chest and no shortness of breath and no dizziness or lightheadedness and no feeling of heart racing or fluttering and no presyncope or syncope. We consulted to see the patient because she underwent troponin checked and that came in to be slightly elevated. The EKG showed sinus rhythm was sinus tachycardia when she presented to the hospital. D-dimer came in to be elevated subsequently CTA of the chest showed no evidence of pulmonary embolism. The chest x-ray showed findings consistent with a pneumonia. Infectious disease was consulted to see the patient and currently she is on antibiotic. The patient has no history of CAD and no history of revascularization but she does have carotid atherosclerosis and also she does have diabetes and hypertension and dyslipidemia. She does not smoke. No significant family history of coronary artery disease. Currently she is on heparin. Beside that she is on beta galilea with Toprol-XL. Also she is on statin. The examination is remarkable for stable vital signs with normal blood pressure and heart rate and regular rhythm with distant heart sounds and bilateral expiratory wheezing also noted on examination. She has no lower except his edema. She has no carotid bruit 09/05. Patient seen and examined. States she feels better. Denies any lightheadedness or dizziness. Vital signs stable 09/06. Patient seen and examined. States shortness of breath is improving. still complaining of cough. Vital signs stable 09/07. Patient seen and examined. Not requiring any oxygen. ID recommended discharging patient on oral Ceftin and doxycycline for 5 days. Cardiology recommended discharging patient on Toprol 100 mg XL and Lipitor. PHYSICAL EXAMINATION: GENERAL: The patient is alert and oriented x3, not in any acute distress. Well developed, well nourished. HEENT: Pupils are round and equally reacting to light. EOMI. No scleral icterus. No conjunctival pallor. Normocephalic, atraumatic. No pharyngeal erythema. No thyromegaly. CARDIOVASCULAR: S1 and S2 present. No murmurs, rubs, or gallops. PULMONARY: Chest is clear to auscultation, no wheezing or crackles. ABDOMEN: Soft, nontender, nondistended, normoactive bowel sounds. No palpable organomegaly. MUSCULOSKELETAL: No joint swelling or deformity. EXTREMITIES: No cyanosis, clubbing, or pedal edema. NEUROLOGICAL: Gross neurological examination did not reveal any focal deficits. SKIN: No rashes. Patient Condition at Discharge: Stable Plan - Discharge Summary Discharge Rx Participant: Yes New Discharge Prescriptions: New cefUROXime axetiL [Cefuroxime] 500 mg PO BID #10 tab Aspirin 81 mg PO DAILY 30 Days #30 tab Atorvastatin [Lipitor] 40 mg PO DAILY 30 Days #30 tab Metoprolol Succinate (ER) [Toprol XL] 100 mg PO DAILY #30 tab Doxycycline [Vibramycin] 100 mg PO BID #10 cap Continue Folic Acid 1 mg PO DAILY Hydroxychloroquine Sulfate [Plaquenil] 200 mg PO BID Furosemide [Lasix] 20 mg PO DAILY Alendronate Sodium [Fosamax] 70 mg PO Q7D Methotrexate Sodium 25mg/Ml 25 mg SQ WE Citalopram Hydrobromide [CeleXA] 20 mg PO DAILY metFORMIN HCL [Glucophage] 1,000 mg PO BID Empagliflozin [Jardiance] 10 mg PO DAILY Insulin Glargine,Hum.rec.anlog [Lantus Solostar Pen] 32 units SQ HS Levothyroxine Sodium [Synthroid] 50 mcg PO DAILY lisinopriL 2.5 mg PO DAILY Discontinued Metoprolol Succinate (ER) [Toprol Xl] 75 mg PO DAILY Atorvastatin [Lipitor] 20 mg PO DAILY Discharge Medication List Folic Acid 1 mg PO DAILY 07/30/19 [History] Hydroxychloroquine Sulfate [Plaquenil] 200 mg PO BID 07/30/19 [History] Furosemide [Lasix] 20 mg PO DAILY 11/14/19 [History] Alendronate Sodium [Fosamax] 70 mg PO Q7D 04/02/21 [History] metFORMIN HCL [Glucophage] 1,000 mg PO BID 04/02/21 [History] Citalopram Hydrobromide [CeleXA] 20 mg PO DAILY 09/04/22 [History] Empagliflozin [Jardiance] 10 mg PO DAILY 09/04/22 [History] Insulin Glargine,Hum.rec.anlog [Lantus Solostar Pen] 32 units SQ HS 09/04/22 [History] Levothyroxine Sodium [Synthroid] 50 mcg PO DAILY 09/04/22 [History] Methotrexate Sodium 25mg/Ml 25 mg SQ WE 09/04/22 [History] lisinopriL 2.5 mg PO DAILY 09/04/22 [History] Aspirin 81 mg PO DAILY 30 Days #30 tab 09/07/22 [Rx] Atorvastatin [Lipitor] 40 mg PO DAILY 30 Days #30 tab 09/07/22 [Rx] Doxycycline [Vibramycin] 100 mg PO BID #10 cap 09/07/22 [Rx] Metoprolol Succinate (ER) [Toprol XL] 100 mg PO DAILY #30 tab 09/07/22 [Rx] cefUROXime axetiL [Cefuroxime] 500 mg PO BID #10 tab 09/07/22 [Rx] Follow up Appointment(s)/Referral(s): Guero Falcon MD [STAFF PHYSICIAN] - 09/16/22 11:45 am (main office) Lidia Felipe MD [Primary Care Provider] - 09/09/22 9:30 am Patient Instructions/Handouts: Heart Attack (DC), Heart Healthy Diet (DC) Discharge Disposition: HOME SELF-CARE
[2022-09-08] MEDS ORDERED: ATORVASTATIN 40 MG TAB PO SCH (09:00)
--- NOTE | 2022-09-12 17:10 | P.PN ---
Subjective Progress Note Date: 09/07/22 Principal diagnosis: Pneumonia Patient is a 66-year-old female with a past medical history significant for hypertension osteoarthritis diabetes mellitus and asthma recently coming back from a 10-day cruise trip including visit to the [place] patient came back 2 weeks ago about 4 days before presentation to the hospital the patient started getting sick started with body aches did have a headache cough with yellow sputum patient CT chest did shows interstitial infiltrate concerning for pneumonia on today's evaluation that is 09/07/2022, the patient continues to be afebrile, the patient is breathing comfortably on room air. The patient denies having any chest pain, the patient cough has decreased intensity and not bring up any sputum, no nausea no vomiting no abdominal pain and no diarrhea feeling better once to go home Objective - Vital Signs Vital signs: Vital Signs Temp 97.9 F 09/07/22 08:00 Pulse 80 09/07/22 08:33 Resp 16 09/07/22 08:33 BP 124/71 09/07/22 08:00 Pulse Ox 96 09/07/22 08:00 FiO2 Intake & Output 09/06/22 09/07/22 09/07/22 18:59 06:59 18:59 Intake Total 234.5 1020 Balance 234.5 1020 Weight 87.6 kg Intake: Intake, IV Titration 234.5 Amount Heparin Sod,Pork in 0.45% 234.5 NaCl 25,000 unit In 0.45 % NaCl 1 250ml.bag @ 11. 023 UNITS/KG/HR 10 mls/hr IV .Q24H [facility] Rx#: [id number] Oral 1020 Other: Voiding Method Toilet # Voids 1 2 # Bowel Movements 0 - Exam GENERAL DESCRIPTION: An elderly female lying in bed in no distress RESPIRATORY SYSTEM: Unlabored breathing , decreased breath sounds at bases HEART: S1 S2 regular rate and rhythm , ABDOMEN: Soft , no tenderness EXTREMITIES: No edema feet - Labs CBC & Chem 7: 09/06/22 07:53 09/06/22 07:53 Labs: Abnormal Lab Results - Last 24 Hours (Table) 09/06/22 09/06/22 09/07/22 Range/Units 16:36 20:14 06:23 POC Glucose (mg/dL) 149 H 234 H 127 H (70-110) mg/dL Microbiology - Last 24 Hours (Table) 09/05/22 16:29 Gram Stain - Final Sputum Sputum Culture - Final 09/04/22 13:30 Blood Culture - Preliminary Blood No Growth after 48 hours 09/04/22 13:20 Blood Culture - Preliminary Blood No Growth after 48 hours Assessment and Plan (1) Pneumonia Status: Acute Code(s): J18.9 - PNEUMONIA, UNSPECIFIED ORGANISM SNOMED Code(s): 188117148 Plan: 1patient presented to hospital with increasing shortness of breath cough with yellow sputum with decision elevated concerning for possible pneumonia questionable atypical pathogen in this patient with recent cruise trip to the [place] 2 sputum for Gram stain and culture currently pending, urine for Legionella antigen was negative, procalcitonin mildly elevated 0.28 and CRP 7.1 3patient seemed to have shown clinical improvement and will finish therapy with a short course of oral Ceftin and doxycycline and close outpatient follow-up dis cussed with the admitting team working on discharge Time with Patient: Less than 30
== END 2022-09-07 13:27 | disposition home or self-care (01) | DRG 193 ==
LOC: EC 09:20 → 3SCARD 14:23
PROVIDERS: ADMIT Hospitalist; ATTEND Hospitalist
DX: J15.9 Unspecified bacterial pneumonia (principal); I21.A1 Myocardial infarction type 2; J84.9 Interstitial pulmonary disease, unspecified; E78.5 Hyperlipidemia, unspecified; I10 Essential (primary) hypertension; M19.90 Unspecified osteoarthritis, unspecified site; J45.909 Unspecified asthma, uncomplicated; E11.9 Type 2 diabetes mellitus without complications; I65.29 Occlusion and stenosis of unspecified carotid artery; R00.0 Tachycardia, unspecified; I27.20 Pulmonary hypertension, unspecified; Z79.83 Long term (current) use of bisphosphonates; Z79.84 Long term (current) use of oral hypoglycemic drugs; Z79.890 Hormone replacement therapy; Z79.899 Other long term (current) drug therapy
CPT/HCPCS: 36415; 71046; 71275; 80053; 81001; 83036; 83605; 83735; 84145; 84484; 85025; 85027; 85379; 85610; 85730; 86140; 86738; 87040; 87070; 87205; 87449; 87636; 93005; 93306; 94640; 96361; 96365; 96366; 96375; 99291

== ENCOUNTER → 2023-04-12 | Outpatient (CLI) | payer MEDICARE, OTHER ==
[2023-04-12 16:39] LABS: African American GFR (CKD) 81 (>60 ml/min/1.73 sqM); Blood Urea Nitrogen 27 mg/dL (7-17); Non-African American GFR(CKD) 70 (>60 ml/min/1.73 sqM)
--- NOTE | 2023-04-13 22:03 | CT ---
EXAMINATION TYPE: CT chest w con DATE OF EXAM: 04/12/2023 COMPARISON: 09/04/2022 HISTORY: 67-year-old female R09.89, MARY ANNE, shortness of breath, wheezing TECHNIQUE: Contiguous axial scanning of the chest after the administration of 100 ml mL of Isovue 300 . Coronal/sagittal reconstructions performed. CT DLP: 402.5mGycm. Automatic exposure control utilized for a dose reduction. FINDINGS: Heart is normal size without pericardial effusion. Scattered three-vessel coronary artery calcificati ons are present. Aorta normal caliber with mild atherosclerotic arch calcifications and conventional arch vessel branc taisha anatomy. Interval resolution of the previously seen mediastinal and hilar adenopathy. No thoracic lymphadenopa thy by CT size criteria. Interval resolution of the previous scattered areas of perihilar bronchovascular opacities. There is persistent background subpleural reticular change and mild subpleural groundglass within the mid and lower lung predominance. Most extensive reticular change and groundglass within the lung bases with a ssociated bronchiectasis. These changes have largely remained stable over the last 7 months. No pleur al effusion. Visualized upper abdomen shows no gross abnormality. Bones: [facility] throughout the mid and lower thoracic spine. IMPRESSION: 1. Interval resolution of previous mediastinal/hilar adenopathy and patchy areas of peribronchovascul ar infiltrates. 2. However, there remains a background of scattered subpleural interstitial fibrosis with a lower jono g predominance of groundglass and reticular change and associated basilar bronchiectasis. Consider pu lmonary medicine referral is no established diagnosis. Interstitial pneumonitis such as NSIP and high school teacher felicia aspiration are some differential considerations.
== END | disposition home or self-care (01) ==
LOC: RADCTMAIN 14:48
PROVIDERS: ATTEND Internal Medicine Rheumatology
DX: J47.9 Bronchiectasis, uncomplicated (principal); J84.10 Pulmonary fibrosis, unspecified; R09.89 Other specified symptoms and signs involving the circulatory and respiratory systems; R06.02 Shortness of breath; R06.2 Wheezing
CPT/HCPCS: 82565; 84520; 71260; 36415; Q9967

== ENCOUNTER → 2023-05-24 | Outpatient (CLI) | payer MEDICARE, OTHER ==
--- NOTE | 2023-05-25 15:54 | MM ---
Reason for Exam: Screening (asymptomatic). Last mammogram was performed 1 year(s) and 1 month(s) ago. Patient History: Menarche at age 12. First Full-Term at age 26. Postmenopausal. Patient has history of breast feeding. Patient used Hormonal Contraceptives for 3 years. Risk Values: Angelic 5 year model risk: 1.9%. NCI Lifetime model risk: 6.2%. Prior Study Comparison: 04/26/2018 Bilateral Screening Mammogram, [facility]. 08/07/2020 Bilateral Screening Mammogram, [facility]. 05/12/2022 Bilateral MG 3D screening mammo w/cad, [facility]. Tissue Density: There are scattered fibroglandular densities. Findings: Analyzed By CAD. Multiple linear calcifications are present. Vascular calcifications are present. No significant interval changes are evident. No suspicious groups of microcalcifications, spiculated or lobular masses, architectural distortion or other secondary signs of malignancy are mammographically apparent. Overall Assessment: Benign, BI-RAD 2 Management: Screening Mammogram of both breasts in 1 year. A negative mammogram report should not preclude additional follow up of suspicious palpable abnormalities. Patient should continue monthly self breast exam. A clinical breast exam by your physician is recommended on an annual basis and results should be correlated with mammographic findings. Electronically signed and approved by: Marin Christianson D.O. Radiologis
== END | disposition home or self-care (01) ==
LOC: RADMAMWWP 13:53
PROVIDERS: ATTEND Family Medicine
DX: Z12.31 Encounter for screening mammogram for malignant neoplasm of breast (principal); Z78.0 Asymptomatic menopausal state
CPT/HCPCS: 77063; 77067

== ENCOUNTER → 2024-03-09 | Outpatient (CLI) | payer MEDICARE, OTHER ==
[2024-03-09 12:09] LABS: Partial Thromboplastin Time 22.8 sec (22.0-30.0); Prothrombin Time 10.5 sec (10.0-12.5)
[2024-03-09 15:26] LABS: HCT 38.8 % (37.2-46.3); HGB 12.4 g/dL (12.0-15.0); MCH 30.8 pg (27.0-32.0); MCV 96.5 FL (80.0-97.0); Mean Platelet Volume 9.9 FL (9.5-12.2); NRBC Per 100 WBC 0 X 10*3/uL (0.00-0.01); Platelet Count 487 X 10*3/uL (140-440); RBC 4.02 X 10*6/uL (4.10-5.20); RDW 13.2 % (11.5-14.5); WBC 11.68 X 10*3/uL (4.50-10.00)
[2024-03-09 16:06] LABS: ALT 13 U/L (8-44); AST 17 U/L (13-35); Albumin 3.7 g/dL (3.8-4.9); Albumin/Globulin Ratio 1.37 Ratio (1.60-3.17); Alkaline Phosphatase 76 U/L (41-126); BUN/Creat Ratio 21.78 Ratio (12.00-20.00); Blood Urea Nitrogen 19.6 mg/dL (9.0-27.0); Calcium 9.4 mg/dL (8.7-10.3); Carbon Dioxide 22.4 mmol/L (21.6-31.8); Chloride 100 mmol/L (96-109); Globulin 2.7 g/dL (1.6-3.3); Glucose 133 mg/dL (70-110); Potassium 4.6 mmol/L (3.5-5.5); Sodium 135 mmol/L (135-145); Total Bilirubin 0.4 mg/dL (0.3-1.2); Total Protein 6.4 g/dL (6.2-8.2)
== END | disposition home or self-care (01) ==
LOC: LABPAT 10:57
PROVIDERS: ATTEND Orthopaedic Surgery Sports Medicine
DX: Z01.818 Encounter for other preprocedural examination
CPT/HCPCS: 80053; 85027; 85610; 85730; 87070

== ENCOUNTER 2024-03-22 05:40 | Day surgery (SDC) | payer MEDICARE, OTHER ==
[2024-03-15 10:55] VITALS: BMI 32.3
[~2024-03-22 05:40] MED LIST: HYDROmorphone 0.5 MG/0.5 ML SYRINGE IVP PRN; TRANEXAMIC 1,000 MG/100ML-NACL 1,000 MG in SALINE 1 100ML.BAG IVPB PRN; fentaNYL (PF) 50 MCG/ML 2 ML AMP IV PRN
[2024-03-22] MEDS: IV FLUID CONTINUATION 1,000 ML IV ONE ×3 (06:21→11:26)
[2024-03-22 06:46] LABS: Glucose,Whole Blood 129 mg/dL (70-110)
[2024-03-22] MEDS: DEXAMETHASONE SOD PHOSPHATE 4 MG/ML 1 ML VIAL IVP STA (06:51)
[2024-03-22] MEDS: ONDANSETRON 4 MG/2 ML VIAL IVP PRN (06:52)
[2024-03-22] MEDS: MELOXICAM 7.5 MG TAB PO PRN (06:58)
[2024-03-22] MEDS: ACETAMINOPHEN TAB 500 MG TAB PO PRN (06:58)
[2024-03-22] MEDS: GABAPENTIN 300 MG CAP PO PRN (06:59)
[2024-03-22] MEDS: MIDAZOLAM 2 MG/2 ML VIAL IV ONE (07:11)
[2024-03-22] MEDS: LACTATED RINGERS 1,000 ML IV SCH ×2 (07:23→12:20)
[2024-03-22] MEDS ORDERED: TRANEXAMIC 1,000 MG/100ML-NACL PREMIX BAG ONE (07:30)
[2024-03-22] MEDS ORDERED: PHENYLEPHRINE 10 MG/ML VIAL ONE (07:30)
[2024-03-22] MEDS ORDERED: GLYCOPYRROLATE 0.2 MG/ML 2 ML VIAL ONE (07:30)
[2024-03-22] MEDS ORDERED: LIDOCAINE 1% INJ 10MG/ML (20 ML MDV) ONE (07:30)
[2024-03-22] MEDS ORDERED: SUCCINYLCHOLINE CHLORIDE 200 MG/10 ML VIAL IV ONE (07:30)
[2024-03-22] MEDS ORDERED: PHENYLEPHRINE-0.9% NACL SYG 1,000 MCG/10 ML SYRINGE ONE (07:30)
[2024-03-22] MEDS ORDERED: fentaNYL (PF) 50 MCG/ML 2 ML AMP ONE (07:30)
[2024-03-22] MEDS ORDERED: PROPOFOL 10 MG/ML 20 ML VIAL IV ONE (07:30)
[2024-03-22] MEDS ORDERED: NEOSTIGMINE 1 MG/ML 10 ML VIAL ONE (07:30)
[2024-03-22] MEDS ORDERED: MIDAZOLAM 2 MG/2 ML VIAL ONE (07:30)
[2024-03-22] MEDS ORDERED: DEXAMETHASONE SOD PHOSPHATE 4 MG/ML 1 ML VIAL ONE (07:30)
[2024-03-22] MEDS ORDERED: ROPIVACAINE 5 MG/ML 30 ML VIAL ONE (07:30)
[2024-03-22] MEDS ORDERED: ROCURONIUM 10 MG/ML (5 ML VIAL) IV ONE (07:30)
[2024-03-22] MEDS: LACTATED RINGERS 1,000 ML IV ONE ×2 (08:02→08:33)
[2024-03-22] MEDS: ceFAZolin 1,000 MG in SODIUM CHLORIDE 0.9% 1,000 ML IRRIGATION ONE (08:06)
[2024-03-22] MEDS: VANCOMYCIN 1,000 MG VIAL MISCELLANE ONE (08:39)
[2024-03-22] MEDS ORDERED: METOCLOPRAMIDE 5 MG/ML 2 ML VIAL IVP PRN (09:26)
[2024-03-22] MEDS ORDERED: SENNOSIDES-DOCUSATE SODIUM 1 EACH TAB PO PRN (09:26)
[2024-03-22] MEDS ORDERED: HYDROmorphone 0.5 MG/0.5 ML SYRINGE IVP PRN ×3 (09:26)
[2024-03-22] MEDS ORDERED: ONDANSETRON 4 MG/2 ML VIAL IVP PRN (09:26)
[2024-03-22] MEDS ORDERED: diphenhydrAMINE 25 MG CAP PO PRN (09:26)
[2024-03-22] MEDS ORDERED: HYDROcodone/APAP 7.5-325MG 1 EACH TAB PO PRN (09:29)
--- NOTE | 2024-03-22 10:14 | OP ---
OPERATIVE REPORT DATE OF SERVICE : 03/22/2024 COMMUNITY PRODUCT SPECIALIST: Tommy Lozano PA-C PREOPERATIVE DIAGNOSIS: Left shoulder advanced rotator cuff arthropathy. POSTOPERATIVE DIAGNOSIS: Left shoulder advanced rotator cuff arthropathy. OPERATION: Left reverse total shoulder arthroplasty. ANESTHESIA: General endotracheal. ESTIMATED BLOOD LOSS: 100 cc. DRAINS: None. COMPLICATIONS: None apparent. DISPOSITION: Postanesthesia care unit. INDICATIONS: Ruthie is a very pleasant 68-year-old female with longstanding left shoulder pain. Workup including x-rays and MRI revealed advanced rotator cuff arthropathy of the left shoulder. At this point, it is felt that she has failed conservative management and she would like to proceed with operative intervention. Risks of procedure were discussed with her in detail. These risks include, but are not limited to risk of infection, nerve damage, bleeding, pain, instability in the shoulder, loosening of the implants, and deep infection. She has also small risk of deep vein thrombosis which could lead to fatal pulmonary embolism. The patient understood these risks. All her questions with regard to the risks of procedure were answered to her satisfaction. Appropriate informed consent was obtained. DESCRIPTION OF PROCEDURE: The patient was identified in the preoperative holding area. Surgical site was marked by both the patient and myself. She was given 2 g of Ancef IV for prophylactic purposes. She was then transported to the operative suite. She was placed supine on the operating room table. A general anesthetic was then administered and dosed per the Anesthesia Department without apparent complication. Examination under anesthesia was then performed of the left shoulder. She had a passive elevation to 120 degrees. External rotation to the side was 30 degrees. The patient was then placed into the beach chair position and well-padded in preparation for surgery. Great care was taken to ensure that her cervical spine was in neutral alignment, well-padded and maintained that way throughout the operative procedure. Great care was also taken to ensure that her legs were appropriately padded as well. The patient's left upper extremity was then prepped and draped in usual sterile fashion. Standard surgical pause undertaken to ensure that we were operating the correct site and appropriate preoperative antibiotics were given. All staff in the room were in agreement and we proceeded. The acromion, AC joint, clavicle, and coracoid were marked with a surgical pen. A planned incision starting above the level of the clavicle and extending distally over the deltopectoral interval approximately 1 cm lateral to the coracoid was marked with a surgical pen. The incision was then made with a 10-blade scalpel. This was carried down sharply to the deltoid fascia. The deltopectoral interval was then identified at the level of the clavicle. A small band retractor was then placed under the proximal deltoid. I then released the deltoid fascia on the lateral aspect of the cephalic vein. The cephalic vein was left in its bed medially. The cephalic vein was protected throughout the entire case. I then identified the clavipectoral fascia. This was incised proximally to the level of the coracoacromial ligament. The coracoacromial ligament was left intact. I then used my finger to spread the interval between the conjoint tendon and the subscapularis. I felt for the axillary nerve which was readily palpable. I then cleared the subacromial and subdeltoid spaces of bursal and scar tissue. I then utilized a brown retractor to hold the deltoid and expose the humeral head. I then proceeded with release of the subscapularis in the anterior-inferior shoulder capsule. The entire superior greater tuberosity was completely devoid of rotator cuff attachment. The course of the biceps tendon was also identified. I then released the rotator interval to the base of the coracoid. The subscapularis and capsule were then released intertendinously. The subscapularis and capsule were released and extended distally in a lazy-S fashion approximately 1 cm medial to the biceps tendon. I then continued to release the capsule along the inferior neck in a vertical fashion to approximately the 6 o'clock position. Great care was taken to ensure the capsule was always visualized and released as to avoid injuring the axillary nerve. I then brought a Tom documentation billing clerk with the arm externally rotated and abducted. I continued releasing the capsule inferomedially to approximately the 4 o'clock position. The inferior osteophytes were now removed as well. This was done with a rongeur. I then proceeded with preparation of the humerus. I removed all the goat joel osteophytes. I then removed the subchondral plate from the superior aspect of the humeral head utilizing a large rongeur. I then used a starting reamer to gain access to the humeral canal. This was approximately 1 cm medial to the rotator cuff insertion and 1 cm posterior to the bicipital groove. I then prepared the humeral canal with hand reaming. I started with a 6 mm reamer and incrementally increased until firm resistance was encountered at 12 mm. The reamer handle was then left in place. I then utilized a humeral resection guide set at 30 degrees of retrotorsion. The cutting block was then set at the prior insertion of the rotator cuff. I then proceeded to osteotomize the head with an oscillating saw. I then removed the resection guide and then completed the osteotomy. I then proceeded with trial stem placement. I broached up to a size 12. It was broached in 30 degrees of retrotorsion. The 12 mm trial broach was then left in place. As noted, the greater tuberosity was nearly completely devoid of rotator cuff attachment. At this point, I did release the biceps tendon. This was tenotomized at the level of the superior labrum. I then placed a Bhattman retractor on the posterior glenoid rim. The arm was then placed in approximately 80 degrees of abduction and in slight flexion on the Tom stand. I then proceeded to remove the hypertrophic labrum to definitively identify the actual glenoid. I then used a mini baseplate starting pin guide. The pin was placed in approximately 10 degrees of inferior tilt in the center of the glenoid. I then proceeded to ream the glenoid fossa. This was done with the mini baseplate reamer. Minimal reaming was done as possible as to preserve as much subchondral bone as possible. I then had the denial management representative open the mini baseplate. This was a Biomet Hieu mini baseplate that was impacted into the real glenoid. I then proceeded with placement of the central screw. A 25 mm central screw was placed. I had excellent purchase in bone. I was able to rotate the scapula through the screwdriver when it was fully seated. I then proceeded with placing the peripheral locking screws. The inferior screw was a 20 mm screw. The anterior, posterior, and superior screws were 15 mm locking screws. I then had the denial management representative open a 36 mm glenosphere. It was slightly offset inferiorly. The Hatfield taper was dried and the glenosphere was impacted onto the real baseplate. I then proceeded with trialing with the real glenosphere in place. At this point, the wound was thoroughly irrigated with sterile saline solution and antibiotic added via pulse lavage. I also utilized the Irrisept antiseptic solution at this point. I then placed a standard poly, standard tray trial. The shoulder was again reduced. It was a mildly difficult reduction. It was very stable throughout the range of motion. There was no impingement noted. I made a decision at that point to proceed with the standard tray, standard poly. The shoulder was then carefully re-dislocated. Again, the wound was thoroughly irrigated with sterile saline solution with antibiotic added via pulse lavage. Again, I used the Irrisept antiseptic solution. I then had the denial management representative open a Hieu Biomet 12 mini stem, a standard tray, and a standard poly. The stem was then impacted into the proximal humerus in 30 degrees of retrotorsion. The Hatfield taper was dried and then the standard tray, standard poly was impacted under dry Hatfield taper onto the real stem. The shoulder was then again reduced. Again, it was a mildly difficult reduction. It was very stable throughout a full range of motion. There was no undue tension on the conjoint tendon. I had also felt for the axillary nerve at this point, which was readily palpable and intact. At this point in time, we proceeded with closure. The shoulder was again thoroughly irrigated. We used the remaining Irrisept solution at this point. I then placed approximately 500 mg of vancomycin powder deep. The deltopectoral interval was reapproximated with 0 Vicryl interrupted suture. The subcutaneous tissue was again irrigated. The remaining 500 mg of vancomycin powder was placed subcutaneously. The subcutaneous tissue was closed with 2-0 Vicryl interrupted suture and the skin was closed with a running 3-0 Quill suture. Dermabond was applied to the incision. Sterile dressing was applied and the patient's left upper extremity was placed into a standard sling. All sponge and needle counts were deemed correct prior to closure. The patient tolerated the procedure without apparent complication. She was transferred to recovery room in stable condition. MMODL / IJN: [id number] /
--- NOTE | 2024-03-22 10:44 | XR ---
Left shoulder Limited. HISTORY: Postop left shoulder prosthesis. COMPARISON: None. TECHNIQUE: Single AP view of the left shoulder was obtained. FINDINGS: There is been placement of a reverse left shoulder prosthesis. Appears to be in near anatomic alignme nt. IMPRESSION: Postop reverse left shoulder prosthesis [facility] Rapp, , 03/22/2024 10:41 AM
[2024-03-22 11:45] LABS: Glucose,Whole Blood 218 mg/dL (70-110)
[2024-03-22] MEDS: INSULIN ASPART (NovoLOG) 100 UNIT/ML VIAL SQ ONE (11:56)
[2024-03-22] MEDS: DEXAMETHASONE SOD PHOSPHATE 4 MG/ML 1 ML VIAL IV ONE (12:06)
[2024-03-22] MEDS: ONDANSETRON 4 MG/2 ML VIAL IVP ONE (12:06)
[2024-03-22] MEDS ORDERED: ALBUTEROL HFA INHALER INHALATION PRN (12:57)
[2024-03-22] MEDS ORDERED: DEXTROSE 50% SYRINGE 50 ML IVP PRN ×2 (14:24)
[2024-03-22 16:44] LABS: Glucose,Whole Blood 127 mg/dL (70-110)
[2024-03-22] MEDS: INSULIN ASPART (NovoLOG) 100 UNIT/ML VIAL SQ SCH ×2 (16:49)
--- NOTE | 2024-03-22 18:31 | P.ANPRN ---
Procedure Note - Anesthesia - Nerve Block Performed Left Interscalene Single Time Out Performed: Yes Date of Procedure: 03/22/24 Procedure Start Time: 06:47 Procedure Stop Time: 06:52 Location of Patient: PreOp Indication: Acute Post-Operative Pain, Requested by Surgeon Sedation Type: Sedate with meaningful contact maintained Preparation: Sterile Prep Position: Supine Needle Types: Pajunk Needle Gauge: 21 Ultrasound used to visualize needle placement: Yes Ultrasound used to observe medication spread: Yes Blood Aspirated: No Pain Paresthesia on Injection Noted: No Resistance on Injection: Normal Image Stored and Saved: Yes Events: Uneventful and Well Tolerated (Ropivacaine 0.5% 20 cc plus dexamethasone 4 mg)
[2024-03-22 20:29] LABS: Glucose,Whole Blood 233 mg/dL (70-110)
[2024-03-22] MEDS: metFORMIN 500 MG TAB PO SCH (20:51)
[2024-03-22] MEDS: HYDROXYCHLOROQUINE SULFATE 200 MG TAB PO SCH (20:51)
[2024-03-22] MEDS: INSULIN DETEMIR (LEVEMIR) 100 UNIT/ML SYR SQ SCH (20:52)
[2024-03-22] MEDS: HEPARIN SODIUM,PORCINE 5,000 UNIT/ML 1 ML VIAL SQ SCH (20:52)
[2024-03-22] MEDS: DOXYCYCLINE 100 MG CAP PO SCH (20:52)
--- NOTE | 2024-03-23 00:32 | CONS ---
CONSULTATION REASON FOR CONSULTATION: Advice regarding diabetes mellitus and other medical issues, requested by Orthopedic Surgery. HISTORY OF PRESENT ILLNESS: This is a 68-year-old woman with a past medical history of multiple medical problems including asthma, diabetes mellitus, underwent left shoulder arthroplasty. There is no history of any fever, rigors, or chills. No history of headache, loss of consciousness, or seizures. PAST MEDICAL HISTORY: Asthma, diabetes, hypertension. Rest of the history and rest of the chart is also reviewed. HOME MEDICATIONS: Reviewed include metformin. Dose and rest of medications noted. ALLERGIES: None. FAMILY HISTORY: History of cancer. SOCIAL HISTORY: No smoking. No alcohol. REVIEW OF SYSTEMS: A 14-point review of systems is negative except as mentioned earlier. PHYSICAL EXAMINATION: VITAL SIGNS: Pulse 82, blood pressure 115/74, respirations 17. CHEST: Clear to auscultation. CARDIOVASCULAR: S1, S2. ABDOMEN: Soft. SHOULDER: Left shoulder arthroplasty. NERVOUS SYSTEM : Nonfocal LABORATORY DATA: Glucose 218. ASSESSMENT: 1. Status post left shoulder arthroplasty. 2. Diabetes mellitus, type 2. 3. Hypertension. 4. Asthma. RECOMMENDATIONS AND DISCUSSION: This is a 68-year-old woman, who presented with multiple complex medical issues, we will monitor the patient closely. Continue the current medications, continue symptomatic treatment. Resume the home medications. Monitor blood sugars closely. We will follow the patient closely. DVT prophylaxis. Further recommendations to follow. MMODL / IJN: [id number] /
[2024-03-23] MEDS: HYDROcodone/APAP 7.5-325MG 1 EACH TAB PO PRN (03:48)
[2024-03-23] MEDS: LEVOTHYROXINE 50 MCG TAB PO SCH (06:26)
[2024-03-23 06:34] LABS: Glucose,Whole Blood 102 mg/dL (70-110)
[2024-03-23 08:42] LABS: Basophils # (A) 0.01 X 10*3/uL (0.00-0.10); Basophils % (A) 0.1 %; Eosinophils # (A) 0.02 X 10*3/uL (0.04-0.35); Eosinophils % (A) 0.2 %; HCT 31.5 % (37.2-46.3); HGB 10.3 g/dL (12.0-15.0); Lymphocytes # (A) 1.46 X 10*3/uL (0.90-5.00); Lymphocytes % (A) 17.5 %; MCH 30.7 pg (27.0-32.0); MCHC 32.7 g/dL (32.0-37.0); Mean Platelet Volume 10.1 FL (9.5-12.2); Monocytes % (A) 8.4 %; NRBC Per 100 WBC 0 X 10*3/uL (0.00-0.01); Neutrophils # (A) 6.11 X 10*3/uL (1.80-7.70); Neutrophils % (A) 73.3 %; Platelet Count 299 X 10*3/uL (140-440); RBC 3.35 X 10*6/uL (4.10-5.20); RDW 13.4 % (11.5-14.5); WBC 8.34 X 10*3/uL (4.50-10.00)
[2024-03-23] MEDS: FOLIC ACID 1 MG TAB PO SCH (09:01)
[2024-03-23] MEDS: CITALOPRAM HYDROBROMIDE 20 MG TAB PO SCH (09:01)
[2024-03-23] MEDS: ATORVASTATIN 40 MG TAB PO SCH (09:01)
[2024-03-23] MEDS: FUROSEMIDE 20 MG TAB PO SCH (09:01)
[2024-03-23] MEDS: DAPAGLIFLOZIN PROPANEDIOL 5 MG TABLET PO SCH (09:02)
[2024-03-23] MEDS: ASPIRIN 81 MG PO SCH (09:02)
[2024-03-23] MEDS: METOPROLOL SUCCINATE (ER) 100 MG TAB.ER.24H PO SCH (09:02)
[2024-03-23 11:21] LABS: Glucose,Whole Blood 94 mg/dL (70-110)
--- NOTE | 2024-03-23 12:52 | P.DS ---
Providers Expected date of discharge: 03/23/24 Attending physician: Sebastián River Consults: 03/22/24 09:26 Consult Physician Routine Consulting Provider: Naomy Castaneda Consult Reason/Comments: post op medical management Do you want consulting provider notified?: Yes Primary care physician: Lidia Felipe - Discharge Diagnosis(es) (1) Primary osteoarthritis, left shoulder Patient was admitted to the OR on 03/22/24 to undergo a left reverse total shoulder arthroplasty. She had failed conservative measures as an outpatient and desired to proceed with elective surgery after given informed consent. She underwent the above procedure which she tolerated well without complication. Postoperative hospital course has remained without complication. On day of discharge she is afebrile, vital signs stable, labs within acceptable ranges, tolerating by mouth meds and diet, voiding without difficulty, positive flatus, denies abdominal pain or calf pain, pain is controlled on oral pain medication and has no new complaints. Wound is benign, neurovascular status is intact, calves are soft and nontender, abdomen soft and nontender. Review of systems is negative for numbness, tingling, fever, chills, chest pain, shortness of breath, nausea, vomiting, dizziness, headaches, slurred speech or other. Current Visit: Yes Status: Acute Priority: Medium Procedures: Left Reverse Total Shoulder Arthroplasty Patient Condition at Discharge: Good Plan - Discharge Summary Discharge Rx Participant: No New Discharge Prescriptions: New Doxycycline Hyclate 100 mg PO BID #10 tab HYDROcodone/APAP 7.5-325MG [Mauldin 7.5-325] 1 - 2 tab PO Q6HR PRN #32 tab PRN Reason: Pain Ondansetron [Zofran] 4 mg PO Q8HR PRN #21 tab PRN Reason: Nausea Docusate [Colace] 100 mg PO BID #60 capsule No Action Folic Acid 1 mg PO DAILY Hydroxychloroquine Sulfate [Plaquenil] 200 mg PO BID Furosemide [Lasix] 20 mg PO DAILY Alendronate Sodium [Fosamax] 70 mg PO Q7D Methotrexate Sodium 25mg/Ml 25 mg SQ WE Citalopram Hydrobromide [CeleXA] 20 mg PO QAM Atorvastatin [Lipitor] 40 mg PO QAM Aspirin 81 mg PO QAM Albuterol Inhaler [Ventolin Hfa Inhaler] 2 puff INHALATION QID PRN PRN Reason: Shortness Of Breath metFORMIN HCL [Glucophage] 1,000 mg PO BID Empagliflozin [Jardiance] 10 mg PO QAM Insulin Glargine,Hum.rec.anlog [Lantus Solostar Pen] 32 units SQ HS Levothyroxine Sodium [Synthroid] 50 mcg PO QAM lisinopriL 2.5 mg PO QAM Metoprolol Succinate (ER) [Toprol XL] 100 mg PO QAM INSULIN LISPRO (humaLOG) [humaLOG] 8 units SQ TID Tirzepatide [Mounjaro] 7.5 mg SQ TU Abatacept [Orencia] 125 mg SQ FR Doxycycline Hyclate 100 mg PO BID Discharge Medication List Folic Acid 1 mg PO DAILY 07/30/19 [History] Hydroxychloroquine Sulfate [Plaquenil] 200 mg PO BID 07/30/19 [History] Furosemide [Lasix] 20 mg PO DAILY 11/14/19 [History] Alendronate Sodium [Fosamax] 70 mg PO Q7D 04/02/21 [History] metFORMIN HCL [Glucophage] 1,000 mg PO BID 04/02/21 [History] Citalopram Hydrobromide [CeleXA] 20 mg PO QAM 09/04/22 [History] Empagliflozin [Jardiance] 10 mg PO QAM 09/04/22 [History] Insulin Glargine,Hum.rec.anlog [Lantus Solostar Pen] 32 units SQ HS 09/04/22 [History] Levothyroxine Sodium [Synthroid] 50 mcg PO QAM 09/04/22 [History] Methotrexate Sodium 25mg/Ml 25 mg SQ WE 09/04/22 [History] lisinopriL 2.5 mg PO QAM 09/04/22 [History] Abatacept [Orencia] 125 mg SQ FR 03/15/24 [History] Albuterol Inhaler [Ventolin Hfa Inhaler] 2 puff INHALATION QID PRN 03/15/24 [History] Aspirin 81 mg PO QAM 03/15/24 [History] Atorvastatin [Lipitor] 40 mg PO QAM 03/15/24 [History] Doxycycline Hyclate 100 mg PO BID 03/15/24 [History] INSULIN LISPRO (humaLOG) [humaLOG] 8 units SQ TID 03/15/24 [History] Metoprolol Succinate (ER) [Toprol XL] 100 mg PO QAM 03/15/24 [History] Tirzepatide [Mounjaro] 7.5 mg SQ TU 03/15/24 [History] Docusate [Colace] 100 mg PO BID #60 capsule 03/23/24 [Rx] Doxycycline Hyclate 100 mg PO BID #10 tab 03/23/24 [Rx] HYDROcodone/APAP 7.5-325MG [Mauldin 7.5-325] 1 - 2 tab PO Q6HR PRN #32 tab 03/23/24 [Rx] Ondansetron [Zofran] 4 mg PO Q8HR PRN #21 tab 03/23/24 [Rx] Follow up Appointment(s)/Referral(s): Sebastián River MD [STAFF PHYSICIAN] - 10 Days Activity/Diet/Wound Care/Special Instructions: sling for comfort non weight bearing may shower in 3 days if no bleeding f/u in office take meds as directed Discharge Disposition: HOME SELF-CARE
[2024-03-23 13:41] VITALS: BP 104/70; PULSE 71; RESP 16; TEMP 97.6
--- NOTE | 2024-03-26 12:10 | P.PN ---
Subjective Progress Note Date: 03/23/24 This is a pleasant 68-year-old female who was recently admitted under orthopedic services status post left shoulder arthroplasty being closely monitored. Patient is postop day 2 and continues with surgical sling is discussing being discharged today. Patient reports her pain is somewhat controlled although having some issues of the left upper arm and awaiting to speak with orthopedics. Patient has been up and walking and reports has support at the home and will be going home on discharge. Patient's blood sugars are controlled and recommend to resume home medications once discharged. Patient is afebrile with no reports of chest pain or shortness of breath. Patient has been tolerating diet. Review of systems: Constitutional: No reports of fatigue, fever, or chills Cardiovascular: No reports of chest pain or palpitations Respiratory: No reports of shortness of breath or cough GI: No reports of nausea, no reports of vomiting, no diarrhea : No reports of dysuria or retention Neurovascular: reports of generalized weakness, reports some left shoulder and upper arm pain All medications have been reviewed PHYSICAL EXAMINATION: GENERAL: The patient is alert and oriented x4, Well developed, well nourished. Obese, elderly appearing HEENT: Pupils are round and equally reacting to light. EOMI. no scleral icterus. No conjunctival pallor. Normocephalic, atraumatic. No pharyngeal erythema. No thyromegaly. CARDIOVASCULAR: S1 and S2 muffled PULMONARY: diminished breath sounds bilaterally with no wheezing or rhonchi noted. ABDOMEN: soft. Nontender on exam. obese. non-distended, normoactive bowel sounds. No palpable organomegaly. MUSCULOSKELETAL: No joint swelling or deformity. EXTREMITIES: No cyanosis, clubbing, or pedal edema. Left shoulder sling noted and positive pulses with less than 3 capillary refill NEUROLOGICAL: Gross neurological examination did not reveal any focal deficits. SKIN: No rashes. Assessment: Status post left shoulder arthroplasty History of diabetes mellitus, type II Hypertension history Asthma, not in exacerbation Obesity with a BMI 32.2 GI prophylaxis DVT prophylaxis Full code Plan: Recommend to continue with current medications and management per orthopedic services. Patient is status post left shoulder arthroplasty continues with the sling and was evaluated by physical therapy and will be cleared for discharge today per orthopedics Home medications reviewed and resumed as appropriate Continue monitoring Accu-Cheks before meals and at bedtime and will continue sliding scale for now while hospitalized, resume home meds once discharged Continue incentive spirometer use at least 10 times every hour while awake We will continue to follow with orthopedics during hospitalization. Thank you kindly for consultation Instructed patient to follow-up with primary care provider on discharge at next scheduled appointment. The impression and plan of care has been dictated by Lesly Fuentes, nurse practitioner as directed. Dr. Leonel MD I have performed a history and examination and MDM of this patient, discussed the same with the dictator, and agree with the dictator's assessment and plan as written ,documented as a scribe. Based on total visit time, I have performed more than 50% of the visit. Any additional findings or plans will be noted. Objective - Vital Signs Vital signs: Vital Signs Temp 98.1 F 03/23/24 07:15 Pulse 92 03/23/24 07:15 Resp 17 03/23/24 07:15 BP 100/64 03/23/24 07:15 Pulse Ox 98 03/23/24 07:15 FiO2 Intake & Output 03/22/24 03/23/24 03/23/24 18:59 06:59 18:59 Intake Total 2071 Output Total 100 Balance 1971 Weight 79.8 kg Intake: IV 1651 Oral 420 Output: Estimated Blood Loss 100 Other: # Voids 2 1 - Labs CBC & Chem 7: 03/23/24 03:33 Labs: Abnormal Lab Results - Last 24 Hours (Table) 03/22/24 03/22/24 03/23/24 Range/Units 16:42 20:28 03:33 RBC (4.10-5.20) X 10*6/uL Hgb (12.0-15.0) g/dL Hct (37.2-46.3) % Eosinophils # (0.04-0.35) X 10*3/uL POC Glucose (mg/dL) 127 H 233 H (70-110) mg/dL Hemoglobin A1c 6.9 H (<=6.0) % 03/23/24 Range/Units 03:33 RBC 3.35 L (4.10-5.20) X 10*6/uL Hgb 10.3 L (12.0-15.0) g/dL Hct 31.5 L (37.2-46.3) % Eosinophils # 0.02 L (0.04-0.35) X 10*3/uL POC Glucose (mg/dL) (70-110) mg/dL Hemoglobin A1c (<=6.0) %
== END 2024-03-23 16:39 | disposition home or self-care (01) ==
LOC: OR 05:40 → 4SSUR 09:24 → OR 03-23 16:39
PROVIDERS: ATTEND Orthopaedic Surgery Sports Medicine
CPT/HCPCS: 64415; 83036; 85025

== ENCOUNTER → 2024-05-21 | Outpatient (CLI) | payer MEDICARE, OTHER ==
[2024-05-21 15:54] LABS: African American GFR (CKD) >90 (>60 ml/min/1.73 sqM); Blood Urea Nitrogen 17 mg/dL (7-17); Non-African American GFR(CKD) 89 (>60 ml/min/1.73 sqM)
--- NOTE | 2024-05-21 18:33 | CT ---
EXAMINATION TYPE: CT chest w con DATE OF EXAM: 05/21/2024 5:09 PM COMPARISON: 04/12/2023, 11/14/2019. 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 Sagittal and coronal reformats were created for review. MIP was performed on a separate workstation. Contrast used:100ml mL of Isovue 300 with IV Contrast (None if empty) Oral contrast used: (None if empty) CT DLP: 519 mGycm, Automated exposure control for dose reduction was used. FINDINGS: LUNGS/ PLEURA: No focal consolidation, pneumothorax or pleural effusion. No pulmonary nodules. Mild interstitial lung changes most pronounced in the diaphragms left greater than right. AIRWAY: Patent and unremarkable. HEART: Size within normal limits.Atherosclerosis of the arterial vasculature. MEDIASTINUM: No gross evidence of adenopathy. VASCULATURE: No aortic aneurysm. MUSCULOSKELETAL: No acute osseous abnormalities, left shoulder arthroplasty appears intact. SOFT TISSUES/LYMPH NODES: Unremarkable. LOWER NECK: Right thyroid 9 mm nodule. UPPER ABDOMEN: No significant findings. IMPRESSION: Coarsened interstitial lung markings most pronounced in the posterior aspect of the lower lobes findi ngs could be associated with rheumatoid arthrosis. No pulmonary nodules. No evidence for acute pulmon lucien process. Findings are not significantly changed from 04/12/2023 but have progressed from 11/14/2019 . [facility], , 05/21/2024 6:31 PM
== END | disposition home or self-care (01) ==
LOC: CANPRECLI → RADCTMAIN 14:56
PROVIDERS: ATTEND Internal Medicine Critical Care Medicine
DX: R91.8 Other nonspecific abnormal finding of lung field (principal); M05.10 Rheumatoid lung disease with rheumatoid arthritis of unspecified site
CPT/HCPCS: 82565; 84520; 71260; 36415; Q9967

== ENCOUNTER → 2024-06-26 | Outpatient (CLI) | payer MEDICARE, OTHER ==
--- NOTE | 2024-06-26 14:17 | MM ---
Reason for Exam: Screening (asymptomatic). Last mammogram was performed 1 year(s) and 1 month(s) ago. Patient History: Menarche at age 12. First Full-Term at age 26. Postmenopausal. Patient has history of breast feeding. Patient used Hormonal Contraceptives for 3 years. Risk Values: Angelic 5 year model risk: 1.9%. NCI Lifetime model risk: 5.9%. Prior Study Comparison: 08/07/2020 Bilateral Screening Mammogram, [facility]. 05/12/2022 Bilateral MG 3D screening mammo w/cad, [facility]. 05/24/2023 Bilateral MG 3D screening mammo w/cad, [facility]. Tissue Density: There are scattered areas of fibroglandular density. Findings: Analyzed By CAD. Benign-appearing bilateral linear and round calcifications show some increase in number from prior mammograms. Benign appearing bilateral vascular calcification is redemonstrated. There is no suspicious new group of microcalcifications or new suspicious mass in either breast. Overall Assessment: Benign, BI-RAD 2 Management: Screening Mammogram of both breasts in 1 year. . Patient should continue monthly self-breast exams. A clinical breast exam by your physician is recommended on an annual basis. This exam should not preclude additional follow-up of suspicious palpable abnormalities. Note on Angelic scores and lifetime risk: 1. A Angelic score greater than 3% is considered moderate risk. If this is the case, consider specialist referral to assess eligibility for a risk reducing agent. 2. If overall lifetime risk for the development of breast cancer is 20% or higher, the patient may qualify for future screening with alternating mammogram and breast MRI. [facility], , 06/26/2024 2:14 PM. Electronically signed and approved by: Darrell Rain M.D.
== END | disposition home or self-care (01) ==
LOC: RADMAMWWP 13:44
PROVIDERS: ATTEND Family Medicine
DX: Z12.31 Encounter for screening mammogram for malignant neoplasm of breast (principal); Z78.0 Asymptomatic menopausal state; R92.323 Mammographic fibroglandular density, bilateral breasts
CPT/HCPCS: 77063; 77067

== ENCOUNTER 2024-09-03 14:16 | Emergency (ER) | payer MEDICARE, OTHER ==
[2024-09-03 15:09] LABS: Basophils % (A) 0 %; Eosinophils # (A) 0.1 k/uL (0-0.7); Eosinophils % (A) 1 %; HCT 29.1 % (34.0-46.0); HGB 9.3 gm/dL (11.4-16.0); Hypochromasia Slight; Lymphocytes # (A) 0.6 k/uL (1.0-4.8); Lymphocytes % (A) 8 %; MCH 27.6 pg (25.0-35.0); MCV 86.3 fL (80.0-100.0); Mean Platelet Volume 7.4; Monocytes # (A) 0.3 k/uL (0-1.0); Monocytes % (A) 4 %; Neutrophils # (A) 6.9 k/uL (1.3-7.7); Neutrophils % (A) 86 %; Platelet Count 548 k/uL (150-450); RBC 3.37 m/uL (3.80-5.40); RDW 15.7 % (11.5-15.5)
[2024-09-03] MEDS: SODIUM CHLORIDE 0.9% 1,000 ML IV SCH (15:15)
[2024-09-03] MEDS: SODIUM CHLORIDE 0.9% 500 ML 500 ML IV ONE (15:16)
[2024-09-03] MEDS: ACETAMINOPHEN TAB 500 MG TAB PO STA (15:16)
--- NOTE | 2024-09-03 15:19 | ED ---
Weakness HPI - General Chief complaint: Altered Mental Status Stated complaint: AMS, weakness Time Seen by Provider: 09/03/24 14:34 Source: patient, EMS, RN notes reviewed Mode of arrival: EMS Limitations: no limitations - History of Present Illness Initial comments: This is a 68-year-old female who presents to the emergency department for generalized weakness. Patient states that this morning she felt very weak and was unable to get off her couch. Her friend came over to help her, but could not get her up either. Patient states that she just feels very weak and has no energy. Reports feeling fine yesterday. She was reported to be altered by EMS. On my conversation with her she is A&O x 4. She denies any chest pain, shortness of breath, abdominal pain, nausea, or vomiting. She does report a small cough and congestion. MD Complaint: generalized weakness - Related Data Home Medications Medication Instructions Recorded Confirmed Hydroxychloroquine Sulfate 200 mg PO BID 07/30/19 09/03/24 [Plaquenil] Alendronate Sodium [Fosamax] 70 mg PO TU 04/02/21 09/03/24 Methotrexate Sodium 25mg/Ml 25 mg SQ FR 09/04/22 09/03/24 lisinopriL 2.5 mg PO DAILY 09/04/22 09/03/24 Abatacept [Orencia] 125 mg SQ TH 03/15/24 09/03/24 Albuterol Inhaler [Ventolin Hfa 2 puff INHALATION RT-QID PRN 03/15/24 09/03/24 Inhaler] Tirzepatide [Mounjaro] 7.5 mg SQ WE 03/15/24 09/03/24 Atorvastatin [Lipitor] 20 mg PO HS 07/25/24 09/03/24 Levothyroxine Sodium [Synthroid] 75 mcg PO DAILY 07/25/24 09/03/24 Gabapentin [Neurontin] 100 mg PO DIRECTED 09/03/24 09/03/24 HYDROcodone/APAP 7.5-325MG [[place] 1 tab PO Q4H PRN 09/03/24 09/03/24 7.5-325] Previous Rx's Medication Instructions Recorded Metoprolol Succinate (ER) [Toprol 50 mg PO BID 30 Days #60 tab 07/28/24 XL] Benzonatate [Tessalon Perle] 200 mg PO TID PRN #30 capsule 09/03/24 Nirmatrelvir/Ritonavir [Paxlovid 1 pack PO BID 5 Days #30 tab 09/03/24 300-100 mg Dose Pack] Allergies Allergy/AdvReac Type Severity Reaction Status Date / Time No Known Allergies Allergy Verified 09/03/24 15:57 Review of Systems ROS Statement: Those systems with pertinent positive or pertinent negative responses have been documented in the HPI. ROS Other: All systems not noted in ROS Statement are negative. Past Medical History Past Medical History: Asthma, Diabetes Mellitus, Hypertension, Osteoarthritis (OA) Additional Past Medical History / Comment(s): arthritis. History of Any Multi-Drug Resistant Organisms: None Reported Past Surgical History: Tubal Ligation Additional Past Surgical History / Comment(s): wrist surgery, knee and shoulder surgery Past Anesthesia/Blood Transfusion Reactions: No Reported Reaction Past Psychological History: No Psychological Hx Reported Smoking Status: Never smoker Past Alcohol Use History: None Reported Past Drug Use History: None Reported - Past Family History Father Family Medical History: Cancer Mother Family Medical History: Congestive Heart Failure (CHF), Hypertension General Exam Limitations: altered mental status General appearance: alert, in no apparent distress Head exam: Present: atraumatic, normocephalic, normal inspection Respiratory exam: Present: normal lung sounds bilaterally. Absent: respiratory distress, wheezes, rales, rhonchi, stridor Cardiovascular Exam: Present: normal rhythm, tachycardia GI/Abdominal exam: Present: soft, normal bowel sounds. Absent: distended, tenderness, guarding, rebound, rigid Neurological exam: Present: alert, oriented X3, CN II-XII intact Psychiatric exam: Present: normal affect, normal mood Skin exam: Present: warm, dry, intact, normal color. Absent: rash Course Vital Signs 09/03/24 09/03/24 09/03/24 14:25 15:59 17:12 Temperature 100.9 F H 100 F H 98.5 F Pulse Rate 131 H 126 H 113 H Respiratory 20 20 18 Rate Blood Pressure 149/71 141/95 103/67 O2 Sat by Pulse 99 99 95 Oximetry 09/03/24 19:06 Temperature 99 F Pulse Rate 111 H Respiratory Rate Blood Pressure 94/54 O2 Sat by Pulse 97 Oximetry Medical Decision Making - Medical Decision Making This is a 68-year-old female who presents to the emergency department for weakness. Was pt. sent in by a medical professional or institution? @ -No Did you speak to anyone other than the patient for history? @ -No Did you review nursing and triage notes? @ -Yes, and I agree, it is accurate with regards to the patient's symptoms. Were old charts reviewed? @ -No Differential Diagnosis? @ -Differential Weakness: Hypoglycemia, shock, sepsis, hyponatremia, anemia, infection, [place], ETOH, adverse medicine reaction, overdose, stroke, this is not meant to be an all-inclusive list. EKG interpreted by me (3pts min.)? @ -EKG interpreted by me demonstrating the following: Sinus tachycardia. Ventricular rate 130 bpm, MA interval 158 ms, QRS duration 84 ms, QTc 376 ms. X-rays interpreted by me (1pt min.)? @ -Chest x-ray obtained. My interpretation identifies lower lobe opacities. CT interpreted by me (1pt min.)? @ -CT scan of the brain obtained. My interpretation identifies no evidence of an acute intracranial hemorrhage. CTA of the chest obtained. My interpretation identifies no evidence of a pulmonary embolus. U/S interpreted by me (1pt. min.)? @ -Not obtained What testing was considered but not performed? (CT, X-rays, U/S, labs)? Why? @ -None What meds were considered but not given? Why? @ -None Did you discuss the management of the patient with other professionals? @ -No Did you reconcile home meds? @ -No Was smoking cessation discussed for >3mins.? @ -No Was critical care preformed (if so, how long)? @ -No Were there social determinants of health that impacted care today? How? (Homelessness, low income, unemployed, alcoholism, drug addiction, transportatio n, low edu. Level, literacy, decrease access to med. care, custodial, rehab)? @ -No Was there de-escalation of care discussed even if they declined? (Discuss DNR or withdrawal of care, Hospice)? @ -No What co-morbidities impacted this encounter? (DM, HTN, Smoking, COPD, CAD, Cancer, CVA, Hep., AIDS, mental health diagnosis, sleep apnea, morbid obesity)? @ -Asthma, DM, HTN Was patient admitted / discharged? @ -Discharged. Lab work demonstrates an elevated D-dimer of 8.13 and a low magnesium of 1.5. Lab work otherwise relatively unremarkable. 400 mg of magnesium oxide administered along with IV fluids. Urinalysis negative for signs of infection. COVID test did return positive. Chest x-ray revealed lower lobe airspace opacities suggestive of atelectasis versus airspace disease. CT scan of the brain revealed no acute process. CTA of the chest revealed no evidence of a pulmonary embolus but did reveal low lung volumes with atelectasis and possible superimposed infection. These findings are likely related to the COVID. She was febrile and tachycardic on arrival. This improved with IV fluids and antipyretics. She was not exhibiting any respiratory distress. She was able to eat and ambulate afterwards, which she tolerated well. At that point she was overall feeling substantially improved and felt like she would much rather go home. Paxlovid prescribed along with Tessalon Perles for any additional coughing. Advised ibuprofen and Tylenol as needed for any additional fevers and being sure she gets plenty of rest and remains well-hydrated. Patient discharged home in stable condition. Case discussed with ED attending Dr. Vale. Return precautions reviewed in depth, the patient is instructed to return to the emergency department with any new, worsening, or concerning symptoms. Patient verbalized understanding. Undiagnosed new problem with uncertain prognosis? @ -None Drug Therapy requiring intensive monitoring for toxicity (Heparin, Nitro, Insulin, Cardizem)? @ -None Were any procedures done? @ -None Diagnosis/symptom? @ -Weakness, COVID-19 Acute, or Chronic, or Acute on Chronic? @ -Acute Uncomplicated (without systemic symptoms) or Complicated (systemic symptoms)? @ -Complicated Side effects of treatment? @ -None Exacerbation, Progression, or Severe Exacerbation] @ -Not applicable Poses a threat to life or bodily function? @ -Unlikely - Lab Data Result diagrams: 09/03/24 15:02 09/03/24 15:03 Lab Results 09/03/24 09/03/24 09/03/24 Range/Units 15:02 15:02 15:02 WBC 8.0 (3.8-10.6) k/uL RBC 3.37 L (3.80-5.40) m/uL Hgb 9.3 L (11.4-16.0) gm/dL Hct 29.1 L (34.0-46.0) % MCV 86.3 (80.0-100.0) fL MCH 27.6 (25.0-35.0) pg MCHC 32.0 (31.0-37.0) g/dL RDW 15.7 H (11.5-15.5) % Plt Count 548 H (150-450) k/uL MPV 7.4 Neutrophils % 86 % Lymphocytes % 8 % Monocytes % 4 % Eosinophils % 1 % Basophils % 0 % Neutrophils # 6.9 (1.3-7.7) k/uL Lymphocytes # 0.6 L (1.0-4.8) k/uL Monocytes # 0.3 (0-1.0) k/uL Eosinophils # 0.1 (0-0.7) k/uL Basophils # 0.0 (0-0.2) k/uL Hypochromasia Slight PT 11.2 (10.0-12.5) sec INR 1.0 (<1.2) APTT 24.0 (22.0-30.0) sec D-Dimer (<0.60) mg/L FEU Sodium (137-145) mmol/L Potassium (3.5-5.1) mmol/L Chloride (98-107) mmol/L Carbon Dioxide (22-30) mmol/L Anion Gap mmol/L BUN (7-17) mg/dL Creatinine (0.52-1.04) mg/dL Est GFR (CKD-EPI)AfAm (>60 ml/min/1.73 sqM) Est GFR (CKD-EPI)NonAf (>60 ml/min/1.73 sqM) Glucose (74-99) mg/dL Plasma Lactic Acid Chris 2.0 (0.7-2.0) mmol/L Calcium (8.4-10.2) mg/dL Magnesium (1.6-2.3) mg/dL Total Bilirubin (0.2-1.3) mg/dL AST (14-36) U/L ALT (4-34) U/L Alkaline Phosphatase (38-126) U/L Troponin I (0.000-0.034) ng/mL Total Protein (6.3-8.2) g/dL Albumin (3.5-5.0) g/dL Urine Color Urine Appearance (Clear) Urine pH (5.0-8.0) Ur Specific Percy (1.001-1.035) Urine Protein (Negative) Urine Glucose (UA) (Negative) Urine Ketones (Negative) Urine Blood (Negative) Urine Nitrite (Negative) Urine Bilirubin (Negative) Urine Urobilinogen (<2.0) mg/dL Ur Leukocyte Esterase (Negative) Influenza Type A (PCR) (Not Detectd) Influenza Type B (PCR) (Not Detectd) RSV (PCR) (Not Detectd) SARS-CoV-2 (PCR) (Not Detectd) 09/03/24 09/03/24 09/03/24 Range/Units 15:02 15:02 15:02 WBC (3.8-10.6) k/uL RBC (3.80-5.40) m/uL Hgb (11.4-16.0) gm/dL Hct (34.0-46.0) % MCV (80.0-100.0) fL MCH (25.0-35.0) pg MCHC (31.0-37.0) g/dL RDW (11.5-15.5) % Plt Count (150-450) k/uL MPV Neutrophils % % Lymphocytes % % Monocytes % % Eosinophils % % Basophils % % Neutrophils # (1.3-7.7) k/uL Lymphocytes # (1.0-4.8) k/uL Monocytes # (0-1.0) k/uL Eosinophils # (0-0.7) k/uL Basophils # (0-0.2) k/uL Hypochromasia PT (10.0-12.5) sec INR (<1.2) APTT (22.0-30.0) sec D-Dimer 8.13 H (<0.60) mg/L FEU Sodium (137-145) mmol/L Potassium (3.5-5.1) mmol/L Chloride (98-107) mmol/L Carbon Dioxide (22-30) mmol/L Anion Gap mmol/L BUN (7-17) mg/dL Creatinine (0.52-1.04) mg/dL Est GFR (CKD-EPI)AfAm (>60 ml/min/1.73 sqM) Est GFR (CKD-EPI)NonAf (>60 ml/min/1.73 sqM) Glucose (74-99) mg/dL Plasma Lactic Acid Chris (0.7-2.0) mmol/L Calcium (8.4-10.2) mg/dL Magnesium (1.6-2.3) mg/dL Total Bilirubin (0.2-1.3) mg/dL AST (14-36) U/L ALT (4-34) U/L Alkaline Phosphatase (38-126) U/L Troponin I <0.012 (0.000-0.034) ng/mL Total Protein (6.3-8.2) g/dL Albumin (3.5-5.0) g/dL Urine Color Urine Appearance (Clear) Urine pH (5.0-8.0) Ur Specific Percy (1.001-1.035) Urine Protein (Negative) Urine Glucose (UA) (Negative) Urine Ketones (Negative) Urine Blood (Negative) Urine Nitrite (Negative) Urine Bilirubin (Negative) Urine Urobilinogen (<2.0) mg/dL Ur Leukocyte Esterase (Negative) Influenza Type A (PCR) Not Detected (Not Detectd) Influenza Type B (PCR) Not Detected (Not Detectd) RSV (PCR) Not Detected (Not Detectd) SARS-CoV-2 (PCR) Detected A (Not Detectd) 09/03/24 09/03/24 Range/Units 15:03 15:18 WBC (3.8-10.6) k/uL RBC (3.80-5.40) m/uL Hgb (11.4-16.0) gm/dL Hct (34.0-46.0) % MCV (80.0-100.0) fL MCH (25.0-35.0) pg MCHC (31.0-37.0) g/dL RDW (11.5-15.5) % Plt Count (150-450) k/uL MPV Neutrophils % % Lymphocytes % % Monocytes % % Eosinophils % % Basophils % % Neutrophils # (1.3-7.7) k/uL Lymphocytes # (1.0-4.8) k/uL Monocytes # (0-1.0) k/uL Eosinophils # (0-0.7) k/uL Basophils # (0-0.2) k/uL Hypochromasia PT (10.0-12.5) sec INR (<1.2) APTT (22.0-30.0) sec D-Dimer (<0.60) mg/L FEU Sodium 131 L (137-145) mmol/L Potassium 4.3 (3.5-5.1) mmol/L Chloride 98 (98-107) mmol/L Carbon Dioxide 24 (22-30) mmol/L Anion Gap 9 mmol/L BUN 12 (7-17) mg/dL Creatinine 0.64 (0.52-1.04) mg/dL Est GFR (CKD-EPI)AfAm >90 (>60 ml/min/1.73 sqM) Est GFR (CKD-EPI)NonAf >90 (>60 ml/min/1.73 sqM) Glucose 145 H (74-99) mg/dL Plasma Lactic Acid Chris (0.7-2.0) mmol/L Calcium 8.6 (8.4-10.2) mg/dL Magnesium 1.5 L (1.6-2.3) mg/dL Total Bilirubin 0.9 (0.2-1.3) mg/dL AST 19 (14-36) U/L ALT 8 (4-34) U/L Alkaline Phosphatase 80 (38-126) U/L Troponin I (0.000-0.034) ng/mL Total Protein 6.1 L (6.3-8.2) g/dL Albumin 3.0 L (3.5-5.0) g/dL Urine Color Colorless Urine Appearance Clear (Clear) Urine pH 6.5 (5.0-8.0) Ur Specific Percy 1.012 (1.001-1.035) Urine Protein Negative (Negative) Urine Glucose (UA) Negative (Negative) Urine Ketones Trace H (Negative) Urine Blood Negative (Negative) Urine Nitrite Negative (Negative) Urine Bilirubin Negative (Negative) Urine Urobilinogen <2.0 (<2.0) mg/dL Ur Leukocyte Esterase Negative (Negative) Influenza Type A (PCR) (Not Detectd) Influenza Type B (PCR) (Not Detectd) RSV (PCR) (Not Detectd) SARS-CoV-2 (PCR) (Not Detectd) - Radiology Data Radiology results: report reviewed, image reviewed Disposition Clinical Impression: Weakness, COVID-19 Disposition: HOME SELF-CARE Instructions (If sedation given, give patient instructions): COVID-19 (Coronavirus Disease 2019) (ED), How to Recover from COVID-19 at Home (ED) Additional Instructions: Return to the emergency department with any new, worsening, or concerning symptoms. Take the Paxlovid as prescribed for 5 days. Take the Tessalon Perles up to every 8 hours as needed for nausea and vomiting. Make sure you get plenty of rest and remain well-hydrated. Alternate with ibuprofen and Tylenol as needed for any additional fevers. Prescriptions: Nirmatrelvir/Ritonavir [Paxlovid 300-100 mg Dose Pack] 1 pack PO BID 5 Days #30 tab Benzonatate [Tessalon Perle] 200 mg PO TID PRN #30 capsule PRN Reason: Cough Is patient prescribed a controlled substance at d/c from ED?: No Referrals: None,Stated [Primary Care Provider] - 1-2 days Time of Disposition: 18:45
[2024-09-03 15:28] LABS: ALT 8 U/L (4-34); AST 19 U/L (14-36); African American GFR (CKD) >90 (>60 ml/min/1.73 sqM); Alkaline Phosphatase 80 U/L (38-126); Anion Gap 9 mmol/L; Blood Urea Nitrogen 12 mg/dL (7-17); Calcium 8.6 mg/dL (8.4-10.2); Carbon Dioxide 24 mmol/L (22-30); Chloride 98 mmol/L (98-107); Glucose 145 mg/dL (74-99); Magnesium 1.5 mg/dL (1.6-2.3); Non-African American GFR(CKD) >90 (>60 ml/min/1.73 sqM); Potassium 4.3 mmol/L (3.5-5.1); Sodium 131 mmol/L (137-145); Total Bilirubin 0.9 mg/dL (0.2-1.3); Total Protein 6.1 g/dL (6.3-8.2)
--- NOTE | 2024-09-03 15:29 | XR ---
EXAMINATION TYPE: XR chest 2V DATE OF EXAM: 09/03/2024 3:13 PM COMPARISON: Chest radiographs from 07/24/2024. CLINICAL INDICATION: Female, 68 years old with history of Weakness; [facility] TECHNIQUE: XR chest 2V Frontal and lateral views of the chest. FINDINGS: Lungs/Pleura: There are airspace opacities projecting over the spine on lateral view is. There is fla ttening of the diaphragm with increased lucency of the lungs. No evidence of pneumothorax, pleural ef fusion. Pulmonary vascularity: Unremarkable. Heart/mediastinum: Cardiomediastinal silhouette is unremarkable. Musculoskeletal: No acute osseous pathology. IMPRESSION: Lower lobe airspace opacities correlate for atelectasis versus airspace disease. [facility], , 09/03/2024 3:27 PM
[2024-09-03 15:31] LABS: Appearance,Urine Clear (Clear); Bilirubin,Urine Negative (Negative); Blood,Urine Negative (Negative); Color,Urine Colorless; Glucose,Urine (UA) Negative (Negative); Ketones,Urine Trace (Negative); Leukocyte Esterase,Urine Negative (Negative); Nitrite,Urine Negative (Negative); PH, Urine 6.5 (5.0-8.0); Protein,Urine Negative (Negative); Specific Gravity,Urine 1.012 (1.001-1.035); Urobilinogen,Urine <2.0 mg/dL (<2.0)
[2024-09-03 15:36] LABS: Prothrombin Time 11.2 sec (10.0-12.5)
[2024-09-03 15:44] LABS: Influenza A Not Detected (Not Detectd); Influenza B Not Detected (Not Detectd); RSV Not Detected (Not Detectd)
--- NOTE | 2024-09-03 15:47 | CT ---
EXAMINATION TYPE: CT brain wo con CT DLP: 1053.1 mGycm, Automated exposure control for dose reduction was used. DATE OF EXAM: 09/03/2024 3:41 PM COMPARISON: CT brain 07/29/2019, 01/24/2016, 08/09/2015 CLINICAL INDICATION:Female, 68 years old with history of Confusion, Confusion. TECHNIQUE: Brain: Multiple axial CT images of the brain were obtained without IV contrast. . Coronal and sagitta l reformats reviewed. FINDINGS: Brain: Extra-axial spaces: No abnormal extra-axial fluid collections. Falx calcifications. Ventricular system: Within normal limits Cerebral parenchyma: No acute intraparenchymal hemorrhage or mass effect. The aponte-white junction is well differentiated. Scattered hypoattenuating areas are seen within the periventricular white matte r. Cerebellum: Unremarkable. Mass effect: No evidence of midline shift. Intracranial vasculature: Atherosclerotic calcifications of the intracranial vessels. Soft tissues: Normal. Calvarium/osseous structures: No depressed skull fracture. Benign hyperostosis frontalis noted. Paranasal sinuses and mastoid air cells: Clear Visualized orbits: Bilateral aphakia IMPRESSION: 1. No acute intracranial process. 2. Mild nonspecific white matter changes, likely secondary to chronic small vessel ischemic disease. [facility], , 09/03/2024 3:44 PM
[2024-09-03 17:13] VITALS: RESP 18
[2024-09-03] MEDS: IBUPROFEN 800 MG TAB PO STA (17:14)
--- NOTE | 2024-09-03 17:35 | CT ---
EXAMINATION TYPE: CT chest angio for PE DATE OF EXAM: 09/03/2024 5:11 PM COMPARISON: Chest radiograph from same day. Multiple CTs of the chest with most recent on 07/24/2024 and dating back to 11/14/2019 CLINICAL INDICATION: Female, 68 years old with history of Weakness, tachycardia, elevated d-dimer; We akness, tachycardia, elevated d-dimer. TECHNIQUE/CONTRAST: CTA scan of the thorax is performed with IV Contrast, patient injected with 100 ml mL of Isovue 370, MIP images are created and reviewed these are created on a separate workstation.. CT DLP: 288.4 mGycm, Automated exposure control for dose reduction was used. FINDINGS: Lungs/Pleura: No evidence of focal consolidation, pleural effusion or pneumothorax. Low lung volumes with some atelectasis/in the lung bases. There may be early honeycombing involving the bilateral lowe r lobes medially. Airway: Large airways are patent. Heart: Size within normal limits. No significant coronary artery calcifications. Vasculature: There is no evidence for a filling defect within the pulmonary vasculature to suggest ac algaaciq pulmonary embolism. The pulmonary artery is of normal size. Mediastinum: No gross evidence of adenopathy. Musculoskeletal: Mild disc degeneration changes are present throughout the thoracolumbar spine second lucien to osteophyte formation and facet joint arthropathy. Left shoulder arthroplasty appears intact. S treak artifact limits evaluation. Soft Tissues/lymph nodes: Unremarkable. Lower neck: Right 11 mm thyroid nodule, stable back to at least 04/12/2023. Upper Abdomen: Diffuse low-attenuation to the liver parenchyma. IMPRESSION: 1. No evidence of pulmonary embolism. 2. Low lung volumes with atelectasis and possible superimposed infection. Correlate clinically. 3. Hepatic steatosis. Follow up recommendations for incidental pulmonary nodules, if there are any, are per [employer] [employer] or [employer]. https://radiopaedia.org/articles/uiqccjflym-qsnbolu-evewpwtzl-qyuxeo-aufitacdahqnovz-0?lang=us [facility], , 09/03/2024 5:33 PM
[2024-09-03] MEDS: MAGNESIUM OXIDE 400 MG TAB PO STA (18:43)
[2024-09-03 19:07] VITALS: BP 94/54; PULSE 111; TEMP 99
== END 2024-09-03 19:16 | disposition home or self-care (01) ==
LOC: EC 14:16
DX: U07.1 COVID-19 (principal); E11.9 Type 2 diabetes mellitus without complications; J45.909 Unspecified asthma, uncomplicated; I10 Essential (primary) hypertension
CPT/HCPCS: 36415; 93005; 85379; 80053; 83605; 83735; 84484; 85025; 85610; 85730; 81003; 87040; 87636; 71046; 70450; 71275; 99285; 96360; Q9967